=== PATIENT | female | born 1945 | race Caucasian/White ===

== ENCOUNTER → 2016-09-12 | Outpatient (CLI) | payer MEDICARE, BC ==
--- NOTE | 2016-09-14 12:34 | MM ---
Reason for exam: screening (asymptomatic). Last mammogram was performed 1 year ago. History: Patient is postmenopausal, has history of ovarian cancer at age 64, and is nulliparous. Family history of breast cancer in maternal cousin at age 40 and breast cancer in maternal aunt. Physical Findings: A clinical breast exam by your physician is recommended on an annual basis and results should be correlated with mammographic findings. MG Screening Mammo w CAD Bilateral CC and MLO view(s) were taken. Prior study comparison: September 08, 2015, bilateral MG screening mammo w CAD. August 26, 2014, bilateral MG screening mammo w CAD. August 22, 2013, bilateral digital screening mammo w/CAD. The breast tissue is heterogeneously dense. This may lower the sensitivity of mammography. There is chronic nodularity in the left breast. No significant changes when compared with prior studies. ASSESSMENT: Negative, BI-RAD 1 RECOMMENDATION: Routine screening mammogram of both breasts in 1 year.
== END | disposition home or self-care (01) ==
LOC: RADMAMWWP 11:20
PROVIDERS: ATTEND Internal Medicine
DX: Z12.31 Encounter for screening mammogram for malignant neoplasm of breast (principal)

== ENCOUNTER → 2017-09-28 | Outpatient (CLI) | payer MEDICARE, BC ==
--- NOTE | 2017-10-01 12:53 | MM ---
Reason for exam: screening (asymptomatic). Last mammogram was performed 1 year ago. History: Patient is postmenopausal, has history of ovarian cancer at age 64, and is nulliparous. Family history of breast cancer in maternal cousin at age 40 and breast cancer in maternal aunt. Physical Findings: A clinical breast exam by your physician is recommended on an annual basis and results should be correlated with mammographic findings. MG Screening Mammo w CAD Bilateral CC and MLO view(s) were taken. XCCL view(s) were taken of the right breast. Prior study comparison: September 14, 2016, bilateral MG screening mammo w CAD. September 08, 2015, bilateral MG screening mammo w CAD. There are scattered fibroglandular densities. No significant changes when compared with prior studies. ASSESSMENT: Benign, BI-RAD 2 RECOMMENDATION: Routine screening mammogram of both breasts in 1 year.
== END | disposition home or self-care (01) ==
LOC: RADMAMWWP 13:16
PROVIDERS: ATTEND Internal Medicine
DX: Z12.31 Encounter for screening mammogram for malignant neoplasm of breast (principal)
CPT/HCPCS: 77067

== ENCOUNTER 2018-12-03 13:47 | Observation (INO) | payer MEDICARE, BC ==
[2018-12-03] MEDS ORDERED: SODIUM CHLORIDE 0.9% 1,000 ML IV STA (13:53)
--- NOTE | 2018-12-03 14:29 | ED ---
Dizziness HPI - General Chief Complaint: Dizziness Stated Complaint: dizziness Time Seen by Provider: 12/03/18 13:52 Source: patient, EMS, RN notes reviewed, old records reviewed Mode of arrival: EMS Limitations: no limitations - History of Present Illness Initial Comments: This is a 72-year-old female the ER for evaluation of dizziness today. Patient episode of dizziness and weakness with getting up this morning. Patient secondary to his dizziness and weakness did fall to ground having severe right ankle pain. Denies hitting head denies other trauma. No headache no chest pain no nausea no vomiting abdominal pain diarrhea recent medication change MD Complaint: dizziness (Prior to a fall) -: hour(s) Timing: gradual onset Description: lightheadedness, difficulty walking (Now unable to walk secondary to pain) History of Same: No History of Trauma: No Severity: moderate Improves With: nothing Worsens With: movement Associated Symptoms: weakness - Related Data Home Medications Medication Instructions Recorded Confirmed Latanoprost/Pf [Latanoprost 0.005% 1 drop LEFT EYE BID 12/03/18 12/03/18 Eye Drop] Levothyroxine Sodium [Synthroid] 75 mcg PO DAILY 12/03/18 12/03/18 Timolol 0.5% Ophth Gel Forming 1 drops LEFT EYE BID 12/03/18 12/03/18 [Timoptic-Xe] Allergies Allergy/AdvReac Type Severity Reaction Status Date / Time codeine Allergy Itching Verified 12/03/18 14:19 Review of Systems ROS Statement: Those systems with pertinent positive or pertinent negative responses have been documented in the HPI. ROS Other: All systems not noted in ROS Statement are negative. Past Medical History Additional Past Medical History / Comment(s): hypoglycemia, macular degneration, glacoma, cataract History of Any Multi-Drug Resistant Organisms: None Reported Past Surgical History: Appendectomy, Cholecystectomy, Hysterectomy Past Psychological History: No Psychological Hx Reported Smoking Status: Never smoker Past Alcohol Use History: None Reported Past Drug Use History: None Reported General Exam - General Exam Comments Initial Comments: Patient's non-ambulatory secondary to pain Limitations: no limitations General appearance: alert, in no apparent distress Head exam: Present: atraumatic, normocephalic, normal inspection Eye exam: Present: normal appearance, PERRL, EOMI. Absent: scleral icterus, conjunctival injection, periorbital swelling ENT exam: Present: normal exam, mucous membranes moist Neck exam: Present: normal inspection. Absent: tenderness, meningismus, lymphadenopathy Respiratory exam: Present: normal lung sounds bilaterally. Absent: respiratory distress, wheezes, rales, rhonchi, stridor Cardiovascular Exam: Present: regular rate, normal rhythm, normal heart sounds. Absent: systolic murmur, diastolic murmur, rubs, gallop, clicks GI/Abdominal exam: Present: soft, normal bowel sounds. Absent: distended, tenderness, guarding, rebound, rigid Extremities exam: Present: normal inspection, full ROM, normal capillary refill. Absent: tenderness, pedal edema, joint swelling, calf tenderness Back exam: Present: normal inspection Neurological exam: Present: alert, oriented X3, CN II-XII intact Psychiatric exam: Present: normal affect, normal mood Skin exam: Present: warm, dry, intact, normal color. Absent: rash Course Vital Signs 12/03/18 12/03/18 14:04 18:00 Temperature 98.3 F Pulse Rate 74 89 Respiratory 18 18 Rate Blood Pressure 123/71 126/70 O2 Sat by Pulse 98 97 Oximetry - Reevaluation(s) Reevaluation #1: 12/03/18 19:07 Medical records reviewed Reevaluation #2: 12/03/18 19:07 Patient is unable to ambulate here in the emergency department EKG Findings - EKG Comments: EKG Findings:: EKG shows sinus rhythm rate of 73, MI 146, QRS 70, QTc 438 Medical Decision Making - Medical Decision Making 72 female the ER with dizziness dizzy episode that led to fall with right ankle pain. Patient unable to walk secondary to pain. Will admit for pain control, she does have CT of lower extremity which is negative here in the emergency room. Patient also very weak and dizzy upon ambulation - Lab Data Result diagrams: 12/03/18 14:22 12/03/18 14:22 Lab Results 12/03/18 12/03/18 12/03/18 Range/Units 14:22 14:22 14:22 WBC 6.7 (3.8-10.6) k/uL RBC 4.36 (3.80-5.40) m/uL Hgb 9.2 L (11.4-16.0) gm/dL Hct 31.8 L (34.0-46.0) % MCV 72.9 L (80.0-100.0) fL MCH 21.0 L (25.0-35.0) pg MCHC 28.8 L (31.0-37.0) g/dL RDW 15.4 (11.5-15.5) % Plt Count 341 (150-450) k/uL Neutrophils % 75 % Lymphocytes % 17 % Monocytes % 4 % Eosinophils % 3 % Basophils % 0 % Neutrophils # 5.0 (1.3-7.7) k/uL Lymphocytes # 1.1 (1.0-4.8) k/uL Monocytes # 0.3 (0-1.0) k/uL Eosinophils # 0.2 (0-0.7) k/uL Basophils # 0.0 (0-0.2) k/uL Hypochromasia Marked Microcytosis Slight PT (9.0-12.0) sec INR (<1.2) APTT (22.0-30.0) sec Sodium 139 (137-145) mmol/L Potassium 3.5 (3.5-5.1) mmol/L Chloride 104 (98-107) mmol/L Carbon Dioxide 30 (22-30) mmol/L Anion Gap 5 mmol/L BUN 14 (7-17) mg/dL Creatinine 0.61 (0.52-1.04) mg/dL Est GFR (CKD-EPI)AfAm >90 (>60 ml/min/1.73 sqM) Est GFR (CKD-EPI)NonAf >90 (>60 ml/min/1.73 sqM) Glucose 143 H (74-99) mg/dL Plasma Lactic Acid Julio Cesar 1.5 (0.7-2.0) mmol/L Calcium 9.0 (8.4-10.2) mg/dL Phosphorus 3.4 (2.5-4.5) mg/dL Magnesium 2.1 (1.6-2.3) mg/dL Total Bilirubin 0.4 (0.2-1.3) mg/dL AST 12 L (14-36) U/L ALT 8 L (9-52) U/L Alkaline Phosphatase 79 (38-126) U/L Creatine Kinase 27 L (30-135) U/L Troponin I (0.000-0.034) ng/mL Total Protein 6.4 (6.3-8.2) g/dL Albumin 3.4 L (3.5-5.0) g/dL 12/03/18 12/03/18 Range/Units 14:22 14:22 WBC (3.8-10.6) k/uL RBC (3.80-5.40) m/uL Hgb (11.4-16.0) gm/dL Hct (34.0-46.0) % MCV (80.0-100.0) fL MCH (25.0-35.0) pg MCHC (31.0-37.0) g/dL RDW (11.5-15.5) % Plt Count (150-450) k/uL Neutrophils % % Lymphocytes % % Monocytes % % Eosinophils % % Basophils % % Neutrophils # (1.3-7.7) k/uL Lymphocytes # (1.0-4.8) k/uL Monocytes # (0-1.0) k/uL Eosinophils # (0-0.7) k/uL Basophils # (0-0.2) k/uL Hypochromasia Microcytosis PT 10.4 (9.0-12.0) sec INR 1.0 (<1.2) APTT 22.3 (22.0-30.0) sec Sodium (137-145) mmol/L Potassium (3.5-5.1) mmol/L Chloride (98-107) mmol/L Carbon Dioxide (22-30) mmol/L Anion Gap mmol/L BUN (7-17) mg/dL Creatinine (0.52-1.04) mg/dL Est GFR (CKD-EPI)AfAm (>60 ml/min/1.73 sqM) Est GFR (CKD-EPI)NonAf (>60 ml/min/1.73 sqM) Glucose (74-99) mg/dL Plasma Lactic Acid Julio Cesar (0.7-2.0) mmol/L Calcium (8.4-10.2) mg/dL Phosphorus (2.5-4.5) mg/dL Magnesium (1.6-2.3) mg/dL Total Bilirubin (0.2-1.3) mg/dL AST (14-36) U/L ALT (9-52) U/L Alkaline Phosphatase (38-126) U/L Creatine Kinase (30-135) U/L Troponin I <0.012 (0.000-0.034) ng/mL Total Protein (6.3-8.2) g/dL Albumin (3.5-5.0) g/dL - Radiology Data Radiology results: report reviewed (CT brain CT right lower extremity ankle and foot negative for traumatic injury x-ray right ankle negative for traumatic injury chest and pelvis x-ray negative), image reviewed Disposition Clinical Impression: Dizziness, Fall, Right ankle pain, Inability to ambulate due to ankle or foot Disposition: ADMITTED IP TO THIS HOSP Condition: Good Is patient prescribed a controlled substance at d/c from ED?: No
[2018-12-03 14:34] LABS: Basophils % (A) 0 %; Eosinophils # (A) 0.2 k/uL (0-0.7); Eosinophils % (A) 3 %; HCT 31.8 % (34.0-46.0); HGB 9.2 gm/dL (11.4-16.0); Hypochromasia Marked; Lymphocytes # (A) 1.1 k/uL (1.0-4.8); Lymphocytes % (A) 17 %; MCHC 28.8 g/dL (31.0-37.0); MCV 72.9 fL (80.0-100.0); Mean Platelet Volume 6.7; Microcytosis Slight; Monocytes # (A) 0.3 k/uL (0-1.0); Monocytes % (A) 4 %; Neutrophils % (A) 75 %; Platelet Count 341 k/uL (150-450); RBC 4.36 m/uL (3.80-5.40); RDW 15.4 % (11.5-15.5); WBC 6.7 k/uL (3.8-10.6)
[2018-12-03 14:44] LABS: ALT 8 U/L (9-52); AST 12 U/L (14-36); Albumin 3.4 g/dL (3.5-5.0); Alkaline Phosphatase 79 U/L (38-126); Anion Gap 5 mmol/L; Blood Urea Nitrogen 14 mg/dL (7-17); Carbon Dioxide 30 mmol/L (22-30); Chloride 104 mmol/L (98-107); Creatine Kinase 27 U/L (30-135); Glucose 143 mg/dL (74-99); Magnesium 2.1 mg/dL (1.6-2.3); Phosphorus 3.4 mg/dL (2.5-4.5); Potassium 3.5 mmol/L (3.5-5.1); Sodium 139 mmol/L (137-145); Total Bilirubin 0.4 mg/dL (0.2-1.3); Total Protein 6.4 g/dL (6.3-8.2)
--- NOTE | 2018-12-03 14:52 | CT ---
EXAMINATION TYPE: CT brain wo con DATE OF EXAM: 12/03/2018 COMPARISON: None HISTORY: Weakness and fall today. Patient denies head injury CT DLP: 1099.4 mGycm Automated exposure control for dose reduction was used. FINDINGS: Mild irregularity involving the soft tissues the anterior frontal epidermis correlate clinically. The re multiple subcutaneous nodules noted bilaterally. There is mild to moderate generalized degenerative change. Low-attenuation the white matter is nonspe cific but most typical remote microvascular ischemia. Calvarium intact. No definite acute hemorrhage. IMPRESSION: 1. Degenerative and nonspecific white matter changes most typical remote ischemia. If there is concer n for acute ischemia correlate with MRI as clinically warranted. 2. Numerous epidermal and subcutaneous soft tissue nodules which are nonspecific could represent seba ceous cysts. Other skin or subcutaneous neoplasms in the differential including neurofibroma. Correla te clinically.
[2018-12-03 14:58] LABS: Partial Thromboplastin Time 22.3 sec (22.0-30.0); Prothrombin Time 10.4 sec (9.0-12.0)
--- NOTE | 2018-12-03 15:22 | XR ---
EXAMINATION TYPE: XR chest 2V DATE OF EXAM: 12/03/2018 COMPARISON: 12/03/2018 HISTORY: Weakness TECHNIQUE: Frontal and lateral views of the chest are obtained. FINDINGS: There is no focal air space opacity, pleural effusion, or pneumothorax seen. The cardiac silhouette size is within normal limits. The osseous structures are intact. There is generalized os seous demineralization overall mild. Cholecystectomy clips are seen in the right upper quadrant. Mild multilevel degenerative changes of the thoracic spine are noted. IMPRESSION: No acute cardiopulmonary process.
--- NOTE | 2018-12-03 15:36 | XR ---
EXAMINATION TYPE: XR ankle complete RT DATE OF EXAM: 12/03/2018 CLINICAL HISTORY: Right ankle pain after fall TECHNIQUE: Frontal, lateral and oblique images of the great ankle are obtained. COMPARISON: None. FINDINGS: There is no acute fracture/dislocation evident in the right ankle. Mild osseous deminerali zation is seen. The ankle mortise appears within normal limits. Small plantar and Achilles heel spurs are present. The overlying soft tissue appears unremarkable. IMPRESSION: There is no acute fracture or dislocation in the right ankle.
--- NOTE | 2018-12-03 17:06 | CT ---
EXAMINATION TYPE: CT lower extremity RT wo con DATE OF EXAM: 12/03/2018 COMPARISON: None HISTORY: Fall today. CT DLP: 238 mGycm Automated exposure control for dose reduction was used. FINDINGS: Multiple axial sections were obtained from the distal tibia to the bottom of the foot with no contras t. There are plantar and Achilles calcaneal spurs. Subtalar joint is anatomic. Ankle mortise is anatomic . There is some narrowing of the ankle joint space. There is some spur formation and calcification at the lateral aspect of the distal tibia consistent with degenerative disease. I see no fracture. Ther e is some narrowing of the intertarsal joint spaces. Metatarsals appear intact. The bones appear inta ct. IMPRESSION: THERE ARE SOME DEGENERATIVE CHANGES IN THE FOOT AND ANKLE. NO FRACTURE SEEN.
[2018-12-03] MEDS ORDERED: SODIUM CHLORIDE 0.9% 1,000 ML IV ONE (17:37)
[2018-12-03] MEDS ORDERED: MORPHINE SULFATE 4 MG/ML SYRINGE IVP PRN (17:38)
[2018-12-03] MEDS ORDERED: MORPHINE SULFATE 4 MG/ML SYRINGE IVP STA (17:38)
[2018-12-03] MEDS: ACETAMINOPHEN TAB 325 MG TAB PO PRN ×2 (18:34→23:42)
[2018-12-04 00:25] VITALS: BMI 28.7
[2018-12-04 01:29] VITALS: RESP 16; TEMP 98.7
[2018-12-04] MEDS: ACETAMINOPHEN TAB 325 MG TAB PO PRN (06:10)
[2018-12-04] MEDS ORDERED: LEVOTHYROXINE 75 MCG TAB PO SCH (06:30)
[2018-12-04 08:52] VITALS: PULSE 91
[2018-12-04] MEDS ORDERED: LATANOPROST 0.005% OPHTH DROPS 2.5 ML BTL LEFT EYE SCH (09:00)
[2018-12-04] MEDS ORDERED: TIMOLOL 0.5% OPHTH DROPS 5 ML BTL LEFT EYE SCH (09:00)
[2018-12-04 11:49] VITALS: BP 123/69
--- NOTE | 2018-12-04 23:16 | HP ---
HISTORY AND PHYSICAL This is a combination history and physical and discharge summary. CHIEF COMPLAINTS: Dizziness as well as right ankle pain. HISTORY OF PRESENT ILLNESS: This 72-year-old woman with a past medical history of multiple medical problems, including history of hypothyroidism, hypoglycemia, appendectomy, cholecystectomy, being followed by Dr. Quiroz in the outpatient setting, apparently had a fall following an episode of dizziness. The patient was getting up in the morning and she fell down, which was the witnessed by the patient's sister, who lives with the patient. The patient complained of right ankle pain and the patient came to [facility] and was admitted for further evaluation and treatment. Further evaluation of the ankle showed no evidence of any fractures. Sprain was suspected. The patient is keen on going home at this time. Hemoglobin was found to be 9.2. Otherwise, there is no history of any history of chest pain, palpitation, headache, loss of consciousness, seizures. No history of diarrhea, fever, rigor or chills at this time. PAST MEDICAL HISTORY: 1. History of hypothyroidism. 2. Appendectomy. 3. Cholecystectomy. 4. Hypoglycemia. HOME MEDICATIONS: 1. Timolol 0.5%. 2. Synthroid 75 mcg p.o. daily. 3. Latanoprost 1 drop b.i.d. 4. Tylenol 650 q.6 p.r.n. ALLERGIES: CODEINE. FAMILY HISTORY: History of pulmonary embolism, macular degeneration, cataract, thyroid. SOCIAL HISTORY: No history of smoking. No history of alcohol intake. REVIEW OF SYSTEMS: ENT: Diminished hearing. Diminished vision. CARDIOVASCULAR SYSTEM: No angina, palpitations. RESPIRATORY SYSTEM: As mentioned earlier. GI: No nausea, vomiting. : No dysuria or retention. NERVOUS SYSTEM: No numbness, weakness. ALLERGY/IMMUNOLOGY: No asthma, hayfever. MUSCULOSKELETAL: As mentioned earlier. HEMATOLOGY/ONCOLOGY: No history of anemia. ENDOCRINE: Hypothyroidism. CONSTITUTIONAL: As mentioned earlier. DERMATOLOGY: Negative. RHEUMATOLOGY: Negative. PSYCHIATRY: As mentioned earlier. PHYSICAL EXAMINATION: Patient alert and oriented x3. Pulse 91, blood pressure 130/74, respiration 20, temperature 98.6, pulse ox 93% on room air. HEENT: Conjunctivae normal. Oral mucosa moist. NECK: No jugular venous distention. No carotid bruit. No lymph node enlargement. CARDIOVASCULAR SYSTEM: S1, S2 muffled. RESPIRATORY SYSTEM: Breath sounds diminished at the bases. Scattered rhonchi and crackles. ABDOMEN: Soft, non-tender. LEGS: No edema. No swelling. Right leg has minimal tenderness in the ankle area. NERVOUS SYSTEM: No focal deficit. LABS: WBC 6.7, hemoglobin 9.2. INR is 1. ASSESSMENT: 1. Dizziness and syncope for evaluation, possibly vasovagal. 2. Hypothyroidism. 3. Hypoglycemia. 4. Macular degeneration. 5. Glaucoma. 6. Cataracts. 7. Appendectomy: 8. Cholecystectomy. RECOMMENDATIONS AND DISCUSSION: In this 72-year-old woman admitted with multiple complex medical issues, at this time patient appears to be stable. The patient and family would like to return home at this time. I would recommend the patient to follow up closely in the outpatient setting with Dr. Quiroz. Otherwise, resume the home medications. Orthostatic vitals are negative. The right ankle pain has improved significantly at this time. There is no evidence of fracture currently. DISCHARGE ADVICE AND MEDICATIONS: 1. Follow up with Cardiology and Orthopedic Surgery. 2. Latanoprost 1 b.i.d. 3. Synthroid 75 mcg p.o. daily. 4. Timolol b.i.d. 5. Tylenol p.r.n. MMODL / IJN: [id number] /
== END 2018-12-04 14:16 | disposition home or self-care (01) ==
LOC: EC 13:47 → 4SSUR 17:38
PROVIDERS: ADMIT Hospitalist; ATTEND Hospitalist
DX: R42 Dizziness and giddiness (principal); R55 Syncope and collapse; M25.571 Pain in right ankle and joints of right foot; E03.9 Hypothyroidism, unspecified; H26.9 Unspecified cataract; H40.9 Unspecified glaucoma; H35.30 Unspecified macular degeneration; E16.2 Hypoglycemia, unspecified; W19.XXXA Unspecified fall, initial encounter; Z79.890 Hormone replacement therapy; Z90.710 Acquired absence of both cervix and uterus; Z90.49 Acquired absence of other specified parts of digestive tract; Z88.5 Allergy status to narcotic agent
CPT/HCPCS: 96361 ×3; 96360; 99285; 36415; 93005; 80053; 82550; 83605; 83735; 84100; 84484 ×2; 85025; 85610; 85730; 73610; 71046; 73700; 70450; G0378 ×2

== ENCOUNTER → 2018-12-18 | Outpatient (CLI) | payer MEDICARE, BC ==
[2018-12-18 08:57] LABS: African American GFR (CKD) >90 (>60 ml/min/1.73 sqM); Blood Urea Nitrogen 17 mg/dL (7-17)
--- NOTE | 2018-12-18 10:01 | CT ---
EXAMINATION TYPE: CT chest w con DATE OF EXAM: 12/18/2018 COMPARISON: NONE HISTORY: Shortness of breath CT DLP: 382.7 mGycm. Automated Exposure Control for Dose Reduction was Utilized. TECHNIQUE: CT scan of the thorax is performed following with IV Contrast, patient injected with 100 mL of Isovue 300. FINDINGS: LUNGS: There is right basilar linear scarring and/or atelectasis posteriorly. No suspicious focal con solidation or infiltrate. No pleural effusion or pneumothorax is evident. Tracheobronchial tree is pa tent. MEDIASTINUM: There are no greater than 1 cm hilar or mediastinal lymph nodes. No cardiomegaly or pe ricardial effusion is seen. There is mild to moderate right atrial and right ventricular dilatation. Main pulmonary artery measures 3.1 cm at bifurcation axial image 27. CT finding suggestive for under lying pulmonary artery hypertension. Adjacent ascending aorta measures up to 3.4 cm in diameter. OTHER: Cholecystectomy clips are seen. There is simple appearing 3.3 cm exophytic thin-walled cyst an teriorly from the left kidney. Smaller simple appearing cyst left kidney axial image 62 is noted Ther e is dextroconvex scoliosis centered in the lower thoracic spine. Mild generalized fat replaced atrop hy of pancreas. Moderate to severe multilevel spurring in the upper to midthoracic spine. IMPRESSION: No suspicious acute pulmonary process.
--- NOTE | 2018-12-19 10:07 | MM ---
Reason for exam: screening (asymptomatic). Last mammogram was performed 1 year and 3 months ago. History: Patient is postmenopausal, has history of ovarian cancer at age 64, and is nulliparous. Family history of breast cancer in maternal cousin at age 40 and breast cancer in maternal aunt. Physical Findings: A clinical breast exam by your physician is recommended on an annual basis and results should be correlated with mammographic findings. MG Screening Mammo w CAD Bilateral CC and MLO view(s) were taken. Prior study comparison: September 28, 2017, bilateral MG screening mammo w CAD. September 14, 2016, bilateral MG screening mammo w CAD. The breast tissue is heterogeneously dense. This may lower the sensitivity of mammography. No suspicious abnormality on the left. Right upper outer quadrant middle depth focal asymmetry. These results were verbally communicated with the patient and result sheet given to the patient on 12/18/18. ASSESSMENT: Incomplete: need additional imaging evaluation, BI-RAD 0 RECOMMENDATION: Special view mammogram of the right breast. If lesion persists on supplemental views, image directed ultrasound is recommended. [facility] will attempt to contact patient to return for supplemental views and ultrasound if indicated.
== END | disposition home or self-care (01) ==
LOC: RADCTMAIN 08:16
PROVIDERS: ATTEND Internal Medicine
DX: Z12.31 Encounter for screening mammogram for malignant neoplasm of breast (principal); R06.02 Shortness of breath; Z88.1 Allergy status to other antibiotic agents; Z88.5 Allergy status to narcotic agent
CPT/HCPCS: 82565; 84520; 77067; 71260; 36415; Q9967

== ENCOUNTER → 2018-12-27 | Outpatient (CLI) | payer MEDICARE, BC ==
--- NOTE | 2018-12-30 08:37 | MM ---
Reason for exam: additional evaluation requested from abnormal screening. Last mammogram was performed less than 1 month ago. History: Patient is postmenopausal, has history of ovarian cancer at age 64, and is nulliparous. Family history of breast cancer in maternal cousin at age 40 and breast cancer in maternal aunt. Physical Findings: Nurse did not find any significant physical abnormalities on exam. MG 3D Work Up W/Cad RT Spot compression CC, spot compression MLO, and ML view(s) were taken of the right breast. Prior study comparison: December 18, 2018, bilateral MG screening mammo w CAD. September 28, 2017, bilateral MG screening mammo w CAD. The breast tissue is heterogeneously dense. This may lower the sensitivity of mammography. Distortion upper outer quadrant on the right persists 5 cm from nipple. most notably on spot CC -. These results were verbally communicated with the patient and result sheet given to the patient on 12/27/18. ASSESSMENT: Incomplete: need additional imaging evaluation, BI-RAD 0 RECOMMENDATION: Ultrasound of the right breast. (upper outer quadrant)
--- NOTE | 2018-12-30 08:39 | USB ---
Reason for exam: additional evaluation requested from abnormal screening. History: Patient is postmenopausal, has history of ovarian cancer at age 64, and is nulliparous. Family history of breast cancer in maternal cousin at age 40 and breast cancer in maternal aunt. US Breast Workup Limited RT Right limited breast ultrasound including focal area of concern, retroareolar and axilla demonstrates no cystic or solid lesion seen. No sonographic correlate. 3D biopsy recommended. These results were verbally communicated with the patient and result sheet given to the patient on 12/27/18. ASSESSMENT: Suspicious, BI-RAD 4 RECOMMENDATION: Surgical consultation and stereotactic core biopsy of the right breast. (3D needed) Called Dr. Quiroz with mammographic findings and has scheduled an appointment for the patient for 01/06/19 at 9:[address] Fang. PRELIMINARY REPORT CALLED AND FAXED TO DR. FANG ON 12/30/18.
== END | disposition home or self-care (01) ==
LOC: RADMAMWWP 14:12
PROVIDERS: ATTEND Internal Medicine
DX: R92.8 Other abnormal and inconclusive findings on diagnostic imaging of breast (principal)
CPT/HCPCS: 77065; 76642; G0279; 77061

== ENCOUNTER → 2019-07-10 | Outpatient (CLI) | payer MEDICARE, BC ==
--- NOTE | 2019-07-10 15:36 | CT ---
EXAMINATION TYPE: CT pelvis wo con DATE OF EXAM: 07/10/2019 COMPARISON: None HISTORY: 73-year-old female with left-sided groin mass TECHNIQUE: Contiguous axial scanning of the pelvis without IV contrast. Coronal and sagittal reconstr uctions performed. CT DLP: 406.90 mGycm Automated exposure control for dose reduction was used. FINDINGS: Scattered mild to moderate stool. There is some circumferential wall thickening along the midsigmoid with adjacent stranding and a 7 mm borderline-sized adjacent mesenteric lymph node. Possible abnormal extension of thickened soft tissue and air from this region contiguous with the ant erior wall of the bladder. Possible involvement along the posterior surface of the abdominal wall mus culature. Heterogeneous mass measuring 6.1 x 3.9 cm within the lower left inguinal region lateral canal lymph n ode measures 1.2 cm which is mildly enlarged. Uterus surgically absent. What appears to be the left ovary is visualized. Right ovary not clearly de lineated. Bones: Mild degenerative changes of the hips. Facet arthropathy lower lumbar spine. IMPRESSION: 1. SIGMOID DIVERTICULOSIS WITH INFLAMMATION SURROUNDING THE MIDSIGMOID. CORRELATE FOR ACUTE DIVERTICU LITIS. 2. POSSIBLE ABNORMAL EXTENSION OF THICKENED SOFT TISSUE AND AIR FROM THIS REGION TO THE ANTERIOR WALL OF THE BLADDER AND ALSO ALONG THE POSTERIOR SURFACE OF THE ABDOMINAL WALL MUSCULATURE. NEOPLASM AND POSTINFLAMMATORY SEQUELA WITH FISTULA FORMATION ARE THE DIFFERENTIAL. 3. ABNORMAL HETEROGENEOUS MASS WITHIN THE LOWER LEFT GLUTEAL REGION MEASURING 6.1 X 3.9 CM. METASTATI C LYMPHADENOPATHY REMAINS TO BE EXCLUDED. APPROPRIATE FURTHER WORKUP AND MANAGEMENT RECOMMENDED FOR A LL OF THESE FINDINGS. A Rufus level critical message alert has been initiated for Rell Cristina DO via the [employer] Critical Results System on 07/10/2019 3:33 PM. This message alert has been sent to Rell Cristina DO via the preferences provided by the clinician for the receipt of Radiology Critical Findings. Mess age ID [id number].
== END | disposition home or self-care (01) ==
LOC: RADCTMAIN 14:26
PROVIDERS: ATTEND Obstetrics & Gynecology
DX: K57.30 Diverticulosis of large intestine without perforation or abscess without bleeding (principal); R19.09 Other intra-abdominal and pelvic swelling, mass and lump
CPT/HCPCS: 72192

== ENCOUNTER 2019-07-30 12:15 | Day surgery (SDC) | payer MEDICARE, BC ==
[2019-07-30 12:46] VITALS: TEMP 97.8
[2019-07-30 14:05] VITALS: BP 116/66; PULSE 78; RESP 16
--- NOTE | 2019-07-30 15:44 | US ---
EXAMINATION TYPE: US biopsy soft tissue/muscle DATE OF EXAM: 07/30/2019 HISTORY: Left inguinal mass. Procedure: Maximal barrier technique was utilized. The skin overlying a suitable path to the patient 's mass in the left inguinal region was localized with ultrasound and the overlying skin prepped and draped. Ultrasound was utilized with sterile technique. Lidocaine was used for local anesthesia. A skin danika was made with a scalpel. An 18-gauge needle was advanced under direct ultrasound guidance and core specimen obtained of the mass. Specimen submitted in formalin to Pathology. Following the procedure, hemostasis achieved and the patient is discharged in stable condition without complicatio n. IMPRESSION:STATUS POST ULTRASOUND GUIDED CORE BIOPSY OF left inguinal MASS, PATHOLOGY IS PENDING. TH IS PROCEDURE IS PERFORMED BY THE UNDERSIGNED.
== END 2019-07-30 13:45 | disposition home or self-care (01) ==
LOC: RADPROMAIN 12:15
PROVIDERS: ATTEND Surgery
DX: R19.04 Left lower quadrant abdominal swelling, mass and lump (principal); R59.1 Generalized enlarged lymph nodes
CPT/HCPCS: 20206; 76942; 88305; 88341; 88342

== ENCOUNTER 2019-08-13 08:29 | Day surgery (SDC) | payer MEDICARE, BC ==
[2019-08-08 15:06] VITALS: BMI 24.6
[~2019-08-13 08:29] MED LIST: DEXAMETHASONE SOD PHOSPHATE 10 MG/ML 1 ML VIAL IV ONE; HEPARIN SODIUM,PORCINE 5,000 UNIT/ML 1 ML VIAL SQ ONE; HYDROmorphone 0.5 MG/0.5 ML SYRINGE IVP PRN; LACTATED RINGERS 1,000 ML IV SCH; LIDOCAINE 1% 20 ML VIAL (10MG/ML) FOR IV START INTRADERMA PRN; ONDANSETRON 4 MG/2 ML VIAL IVP ONE
--- NOTE | 2019-08-13 09:15 | P.GSHP ---
History of Present Illness H&P Date: 08/13/19 Chief Complaint: Left Groin mass This a 73-year-old female who presents today for open biopsy of a left groin mass. Patient has had this previously biopsied. The pathologist is requesting more tissue for diagnosis. Patient's had a mass present for approximately 7 years. Past Medical History Past Medical History: Eye Disorder, Liver Disease, Skin Disorder, Thyroid Disorder Additional Past Medical History / Comment(s): hypoglycemia, macular degeneration, glaucoma, cataracts,. Legally BLIND both eyes, Hep B 40 years ago. 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, recent soft tissue core biopsy History of Any Multi-Drug Resistant Organisms: None Reported Past Surgical History: Appendectomy, Cholecystectomy, Hysterectomy Additional Past Surgical History / Comment(s): partial hysterectomy, skin growths "burned off" Past Anesthesia/Blood Transfusion Reactions: No Reported Reaction Smoking Status: Never smoker - Past Family History Mother Additional Family Medical History / Comment(s): macualr degeneration, cataracts, thyroid Father Family Medical History: Pulmonary Embolus Medications and Allergies Home Medications Medication Instructions Recorded Confirmed Type Latanoprost/Pf [Latanoprost 0.005% 1 drop LEFT EYE BID 12/03/18 08/13/19 History Eye Drop] Levothyroxine Sodium [Synthroid] 75 mcg PO DAILY 12/03/18 08/13/19 History Timolol 0.5% Ophth Gel Forming 1 drops LEFT EYE BID 12/03/18 08/13/19 History [Timoptic-Xe 0.5% Gel Form] Ferrous Sulfate [Feosol] 325 mg PO DAILY 07/25/19 08/13/19 History Allergies Allergy/AdvReac Type Severity Reaction Status Date / Time codeine Allergy Itching Verified 08/13/19 08:56 Surgical - Exam Vital Signs Temp Pulse Resp BP Pulse Ox 98.4 F 88 16 128/68 98 08/13/19 08:46 08/13/19 08:46 08/13/19 08:46 08/13/19 08:46 08/13/19 08:46 - General well developed, well nourished, no distress - Eyes PERRL - ENT normal pinna - Neck no masses - Respiratory normal expansion - Cardiovascular Rhythm: regular - Abdomen Abdomen: soft, non tender - Musculoskeletal 4 x 7 x 5 cm left groin mass Assessment and Plan Assessment: Left groin mass. We'll perform open biopsy.
[2019-08-13 09:20] LABS: Glucose,Whole Blood 110 mg/dL (75-99)
[2019-08-13] MEDS ORDERED: fentaNYL (PF) 50 MCG/ML 2 ML AMP ONE (09:48)
[2019-08-13] MEDS ORDERED: MIDAZOLAM 2 MG/2 ML VIAL ONE (09:48)
[2019-08-13] MEDS ORDERED: PROPOFOL 10 MG/ML 20 ML VIAL IV ONE (09:48)
[2019-08-13] MEDS ORDERED: BUPIVACAINE (PF) 0.25% 30 ML VIAL SQ ONE ×3 (10:07→10:10)
[2019-08-13 10:41] VITALS: TEMP 97.6
[2019-08-13 10:47] VITALS: RESP 16
--- NOTE | 2019-08-13 10:56 | P.OP ---
Date of Procedure: 08/13/19 Preoperative Diagnosis: Left groin mass Postoperative Diagnosis: Left groin mass Procedure(s) Performed: Excision of left groin mass Anesthesia: ASHLEE Surgeon: Winston Fang Pathology: other (Left groin mass) Condition: stable Disposition: PACU Description of Procedure: The patient's placed on the operative table in supine position. She received general anesthesia. Repeat sterile fashion. A skin incision was made over the left groin and then using blunt and sharp dissection with cautery the mass was excised. The appeared to be a tissue plane between the mass and some taste tissues. The mass measured approximately 12 x 5 x 5 cm. The Bovie was used for hemostasis. A DARSHANA drain is placed in the operative field and brought through separate stab incision. The deep layers closed with 2-0 Vicryl. Skin was closed interrupted 3-0 Monocryl suture. Dermabond was applied. Patient tolerated the procedure well she will was sent to recovery room in stable condition.
[2019-08-13] MEDS ORDERED: LACTATED RINGERS 1,000 ML IV ONE (11:13)
[2019-08-13 11:43] VITALS: BP 111/62; PULSE 66
[2019-08-13] MEDS ORDERED: HYDROcodone/APAP 5-325MG 1 EACH TAB PO ONE (11:47)
== END 2019-08-13 13:06 | disposition home or self-care (01) ==
LOC: OR 08:29
PROVIDERS: ATTEND Surgery
DX: D23.5 Other benign neoplasm of skin of trunk (principal); H54.8 Legal blindness, as defined in USA; E07.9 Disorder of thyroid, unspecified
CPT/HCPCS: 11406; 12034; 88305; J2250; J1644; J1100; J0690; J2405; J3010; J2704; J1170

== ENCOUNTER → 2019-08-26 | Outpatient (CLI) | payer MEDICARE, BC ==
--- NOTE | 2019-08-26 14:11 | MM ---
Reason for exam: follow-up at short interval from prior study. Last mammogram was performed 8 months ago. History: Patient is postmenopausal, has history of ovarian cancer at age 64, and is nulliparous. Family history of breast cancer in maternal cousin at age 40 and breast cancer in maternal aunt. Benign excisional biopsy of the right breast, January 2019. Physical Findings: Nurse did not find any significant physical abnormalities on exam. MG 3D Diag Mammo W/Cad RT CC and MLO view(s) were taken of the right breast. Prior study comparison: December 27, 2018, right breast MG 3d work up w/cad RT. December 18, 2018, bilateral MG screening mammo w CAD. The breast tissue is heterogeneously dense. This may lower the sensitivity of mammography. Stable benign calcifications. Previous mammotome biopsy in the right breast. There is chronic nodularity bilaterally. These results were verbally communicated with the patient and result sheet given to the patient on 08/26/19. ASSESSMENT: Benign, BI-RAD 2 RECOMMENDATION: Return to routine screening mammogram schedule for both breasts. Back on schedule.
== END | disposition home or self-care (01) ==
LOC: RADMAMWWP 12:48
PROVIDERS: ATTEND Surgery
DX: R92.8 Other abnormal and inconclusive findings on diagnostic imaging of breast (principal)
CPT/HCPCS: 77065; G0279; 77061

== ENCOUNTER 2020-04-21 12:05 | Emergency (ER) | payer MEDICARE, BC ==
[2020-04-21] MEDS ORDERED: MECLIZINE 12.5 MG TAB PO STA (12:11)
[2020-04-21] MEDS ORDERED: ONDANSETRON 4 MG/2 ML VIAL IVP STA (12:11)
[2020-04-21] MEDS ORDERED: SODIUM CHLORIDE 0.9% 1,000 ML IV STA (12:11)
[2020-04-21 12:14] VITALS: RESP 16; TEMP 98
--- NOTE | 2020-04-21 12:14 | ED ---
Dizziness HPI - General Stated Complaint: Dizziness Time Seen by Provider: 04/21/20 12:06 Source: patient, EMS, RN notes reviewed Mode of arrival: EMS Limitations: no limitations - History of Present Illness Initial Comments: 74-year-old female presents emergency department via EMS chief complaint of dizziness. Patient states that she was sitting down felt like the room was sp inning. Patient states that she attempted to get up and felt worse with movement. Patient states that she had had a few bouts is the past in which she was hospitalized with no clear results. Patient states that she does not feel significantly nauseated no vomiting no focal weakness no blurred vision no headache. Patient states the dizziness is worse with movement. She felt that she was so dizzy she has not passed out. - Related Data Home Medications Medication Instructions Recorded Confirmed Latanoprost/Pf [Latanoprost 0.005% 1 drop LEFT EYE HS 12/03/18 04/21/20 Eye Drop] Levothyroxine Sodium [Synthroid] 75 mcg PO DAILY 12/03/18 04/21/20 Timolol 0.5% Ophth Gel Forming 1 drops LEFT EYE DAILY 12/03/18 04/21/20 [Timoptic-Xe 0.5% Gel Form] Ferrous Sulfate [Feosol] 325 mg PO DAILY 07/25/19 04/21/20 Previous Rx's Medication Instructions Recorded Meclizine [Antivert] 25 mg PO TID PRN #15 tab 04/21/20 Allergies Allergy/AdvReac Type Severity Reaction Status Date / Time codeine Allergy Itching Verified 04/21/20 12:42 Review of Systems ROS Statement: Those systems with pertinent positive or pertinent negative responses have been documented in the HPI. ROS Other: All systems not noted in ROS Statement are negative. Past Medical History Past Medical History: Eye Disorder, Liver Disease, Skin Disorder, Thyroid Disorder Additional Past Medical History / Comment(s): hypoglycemia, macular degeneration, glaucoma, cataracts,. Legally BLIND both eyes, Hep B 40 years ago. 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, recent soft tissue core biopsy History of Any Multi-Drug Resistant Organisms: None Reported Past Surgical History: Appendectomy, Cholecystectomy, Hysterectomy Additional Past Surgical History / Comment(s): partial hysterectomy, skin growths "burned off" Past Anesthesia/Blood Transfusion Reactions: No Reported Reaction Past Psychological History: No Psychological Hx Reported Additional Psychological History / Comment(s): lives with sister. pt required assistance due to legally blind Past Alcohol Use History: None Reported Past Drug Use History: None Reported - Past Family History Mother Additional Family Medical History / Comment(s): macualr degeneration, cataracts, thyroid Father Family Medical History: Pulmonary Embolus General Exam Limitations: no limitations General appearance: alert, in no apparent distress Head exam: Present: atraumatic, normocephalic, normal inspection Eye exam: Present: normal appearance, PERRL, EOMI. Absent: scleral icterus, conjunctival injection, periorbital swelling ENT exam: Present: normal exam, normal oropharynx, mucous membranes moist Neck exam: Present: normal inspection, full ROM. Absent: tenderness, meningism us, lymphadenopathy Respiratory exam: Present: normal lung sounds bilaterally. Absent: respiratory distress, wheezes, rales, rhonchi, stridor Cardiovascular Exam: Present: regular rate, normal rhythm, normal heart sounds. Absent: systolic murmur, diastolic murmur, rubs, gallop, clicks GI/Abdominal exam: Present: soft, normal bowel sounds. Absent: distended, tenderness, guarding, rebound, rigid Neurological exam: Present: alert, oriented X3, CN II-XII intact, reflexes normal, other (Finger to nose intact bilaterally without overshooting). Absent: motor sensory deficit Skin exam: Present: warm, dry, intact, normal color. Absent: rash Course Vital Signs 04/21/20 04/21/20 04/21/20 12:07 12:49 13:27 Temperature 98.0 F Pulse Rate 86 86 74 Respiratory 16 16 16 Rate Blood Pressure 120/76 117/86 123/73 O2 Sat by Pulse 97 99 99 Oximetry - Reevaluation(s) Reevaluation #1: 04/21/20 13:26 Patient reevaluated, resting comfortably, states that her dizziness has resolved. 04/21/20 13:26 EKG Findings - EKG Comments: EKG Findings:: EKG performed at 1243 normal sinus rhythm rate of 62 MS 1:30 QRS 86 QTC is QTC 422/428 Medical Decision Making - Medical Decision Making 74-year-old female presented for dizziness. This was positional dizziness. Patient did have complete workup including labs, EKG and CT of the brain there are no acute findings. Patient symptoms have improved after Antivert. She is able to ambulate to the bathroom and back with no ataxia. Patient has no neurological deficits. Patient be discharged with Antivert return parameters were discussed. - Lab Data Result diagrams: 04/21/20 12:18 04/21/20 12:18 Lab Results 04/21/20 04/21/20 04/21/20 Range/Units 12:18 12:18 12:18 WBC 5.1 (3.8-10.6) k/uL RBC 4.28 (3.80-5.40) m/uL Hgb 10.5 L (11.4-16.0) gm/dL Hct 34.4 (34.0-46.0) % MCV 80.4 (80.0-100.0) fL MCH 24.6 L (25.0-35.0) pg MCHC 30.6 L (31.0-37.0) g/dL RDW 15.8 H (11.5-15.5) % Plt Count 309 (150-450) k/uL Neutrophils % 46 % Lymphocytes % 38 % Monocytes % 7 % Eosinophils % 5 % Basophils % 1 % Neutrophils # 2.4 (1.3-7.7) k/uL Lymphocytes # 1.9 (1.0-4.8) k/uL Monocytes # 0.4 (0-1.0) k/uL Eosinophils # 0.3 (0-0.7) k/uL Basophils # 0.1 (0-0.2) k/uL Hypochromasia Marked Sodium 138 (137-145) mmol/L Potassium 3.4 L (3.5-5.1) mmol/L Chloride 104 (98-107) mmol/L Carbon Dioxide 29 (22-30) mmol/L Anion Gap 5 mmol/L BUN 14 (7-17) mg/dL Creatinine 0.50 L (0.52-1.04) mg/dL Est GFR (CKD-EPI)AfAm >90 (>60 ml/min/1.73 sqM) Est GFR (CKD-EPI)NonAf >90 (>60 ml/min/1.73 sqM) Glucose 103 H (74-99) mg/dL Calcium 9.1 (8.4-10.2) mg/dL Total Bilirubin 0.5 (0.2-1.3) mg/dL AST 17 (14-36) U/L ALT 6 (4-34) U/L Alkaline Phosphatase 83 (38-126) U/L Troponin I (0.000-0.034) ng/mL Total Protein 6.3 (6.3-8.2) g/dL Albumin 3.3 L (3.5-5.0) g/dL Urine Color Yellow Urine Appearance Cloudy H (Clear) Urine pH 6.0 (5.0-8.0) Ur Specific Omega 1.016 (1.001-1.035) Urine Protein Trace H (Negative) Urine Glucose (UA) Negative (Negative) Urine Ketones Negative (Negative) Urine Blood Negative (Negative) Urine Nitrite Negative (Negative) Urine Bilirubin Negative (Negative) Urine Urobilinogen <2.0 (<2.0) mg/dL Ur Leukocyte Esterase Moderate H (Negative) Urine RBC 2 (0-5) /hpf Urine WBC 7 H (0-5) /hpf Ur Squamous Epith Cells 2 (0-4) /hpf Hyaline Casts 16 H (0-2) /lpf Urine Mucus Many H (None) /hpf 04/21/20 Range/Units 12:18 WBC (3.8-10.6) k/uL RBC (3.80-5.40) m/uL Hgb (11.4-16.0) gm/dL Hct (34.0-46.0) % MCV (80.0-100.0) fL MCH (25.0-35.0) pg MCHC (31.0-37.0) g/dL RDW (11.5-15.5) % Plt Count (150-450) k/uL Neutrophils % % Lymphocytes % % Monocytes % % Eosinophils % % Basophils % % Neutrophils # (1.3-7.7) k/uL Lymphocytes # (1.0-4.8) k/uL Monocytes # (0-1.0) k/uL Eosinophils # (0-0.7) k/uL Basophils # (0-0.2) k/uL Hypochromasia Sodium (137-145) mmol/L Potassium (3.5-5.1) mmol/L Chloride (98-107) mmol/L Carbon Dioxide (22-30) mmol/L Anion Gap mmol/L BUN (7-17) mg/dL Creatinine (0.52-1.04) mg/dL Est GFR (CKD-EPI)AfAm (>60 ml/min/1.73 sqM) Est GFR (CKD-EPI)NonAf (>60 ml/min/1.73 sqM) Glucose (74-99) mg/dL Calcium (8.4-10.2) mg/dL Total Bilirubin (0.2-1.3) mg/dL AST (14-36) U/L ALT (4-34) U/L Alkaline Phosphatase (38-126) U/L Troponin I <0.012 (0.000-0.034) ng/mL Total Protein (6.3-8.2) g/dL Albumin (3.5-5.0) g/dL Urine Color Urine Appearance (Clear) Urine pH (5.0-8.0) Ur Specific Omega (1.001-1.035) Urine Protein (Negative) Urine Glucose (UA) (Negative) Urine Ketones (Negative) Urine Blood (Negative) Urine Nitrite (Negative) Urine Bilirubin (Negative) Urine Urobilinogen (<2.0) mg/dL Ur Leukocyte Esterase (Negative) Urine RBC (0-5) /hpf Urine WBC (0-5) /hpf Ur Squamous Epith Cells (0-4) /hpf Hyaline Casts (0-2) /lpf Urine Mucus (None) /hpf Disposition Clinical Impression: Vertigo Disposition: HOME SELF-CARE Condition: Stable Instructions (If sedation given, give patient instructions): Dizziness (ED) Additional Instructions: Please return to the Emergency Department if symptoms worsen or any other concerns. Prescriptions: Meclizine [Antivert] 25 mg PO TID PRN #15 tab PRN Reason: Vertigo Is patient prescribed a controlled substance at d/c from ED?: No Referrals: Batsheva Quiroz MD [Primary Care Provider] - 1-2 days Time of Disposition: 13:34
[2020-04-21 12:32] LABS: Basophils # (A) 0.1 k/uL (0-0.2); Basophils % (A) 1 %; Eosinophils # (A) 0.3 k/uL (0-0.7); Eosinophils % (A) 5 %; HCT 34.4 % (34.0-46.0); HGB 10.5 gm/dL (11.4-16.0); Hypochromasia Marked; Lymphocytes # (A) 1.9 k/uL (1.0-4.8); Lymphocytes % (A) 38 %; MCH 24.6 pg (25.0-35.0); MCHC 30.6 g/dL (31.0-37.0); MCV 80.4 fL (80.0-100.0); Mean Platelet Volume 6.7; Monocytes # (A) 0.4 k/uL (0-1.0); Monocytes % (A) 7 %; Neutrophils # (A) 2.4 k/uL (1.3-7.7); Neutrophils % (A) 46 %; Platelet Count 309 k/uL (150-450); RBC 4.28 m/uL (3.80-5.40); RDW 15.8 % (11.5-15.5); WBC 5.1 k/uL (3.8-10.6)
[2020-04-21 12:42] LABS: ALT 6 U/L (4-34); AST 17 U/L (14-36); African American GFR (CKD) >90 (>60 ml/min/1.73 sqM); Albumin 3.3 g/dL (3.5-5.0); Alkaline Phosphatase 83 U/L (38-126); Anion Gap 5 mmol/L; Blood Urea Nitrogen 14 mg/dL (7-17); Calcium 9.1 mg/dL (8.4-10.2); Carbon Dioxide 29 mmol/L (22-30); Chloride 104 mmol/L (98-107); Glucose 103 mg/dL (74-99); Non-African American GFR(CKD) >90 (>60 ml/min/1.73 sqM); Potassium 3.4 mmol/L (3.5-5.1); Sodium 138 mmol/L (137-145); Total Bilirubin 0.5 mg/dL (0.2-1.3); Total Protein 6.3 g/dL (6.3-8.2)
[2020-04-21 12:59] LABS: Appearance,Urine Cloudy (Clear); Bilirubin,Urine Negative (Negative); Blood,Urine Negative (Negative); Color,Urine Yellow; Glucose,Urine (UA) Negative (Negative); Hyaline Casts,Urine 16 /lpf (0-2); Ketones,Urine Negative (Negative); Leukocyte Esterase,Urine Moderate (Negative); Mucus,Urine Many /hpf; Nitrite,Urine Negative (Negative); Protein,Urine Trace (Negative); RBC,Urine 2 /hpf (0-5); Specific Gravity,Urine 1.016 (1.001-1.035); Squamous Epithelial Cell,Urine 2 /hpf (0-4); Urobilinogen,Urine <2.0 mg/dL (<2.0); WBC,Urine 7 /hpf (0-5)
--- NOTE | 2020-04-21 13:31 | CT ---
EXAMINATION TYPE: CT brain wo con DATE OF EXAM: 04/21/2020 HISTORY: Dizziness CT DLP: 1068.4 mGycm. Automated Exposure Control for Dose Reduction was Utilized. TECHNIQUE: CT scan of the head is performed without contrast. COMPARISON: CT brain 12/03/2018 FINDINGS: There is no acute intracranial hemorrhage, midline shift, or mass effect identified. Diffuse volume l oss. Moderate white matter patchy hypodensities redemonstrated, likely sequela of chronic microvascul ar ischemic change. The ventricles, sulci, and cisterns are normal in size and configuration. No extra-axial fluid collection. Bones and extracranial soft tissues are intact. The globes are gross ly symmetric, with cataract postsurgical changes on the right. Visualized sinuses and mastoid air ashley ls are clear. Mild soft tissue density within the bilateral external auditory canals likely cerumen, right greater than left. Multiple extracranial soft tissue cutaneous and subcutaneous nodules redemo nstrated. IMPRESSION: 1. No acute intracranial hemorrhage, midline shift, or mass effect. 2. Volume loss and chronic microvascular ischemic change. 3. Numerous cutaneous and subcutaneous soft tissue nodules redemonstrated.
[2020-04-21 14:00] VITALS: BP 125/86; PULSE 86
== END 2020-04-21 14:07 | disposition home or self-care (01) ==
LOC: EC 12:05
DX: R42 Dizziness and giddiness (principal); E07.9 Disorder of thyroid, unspecified; H54.8 Legal blindness, as defined in USA
CPT/HCPCS: 36415; 70450; 80053; 81001; 84484; 85025; 93005; 96360; 99284

== ENCOUNTER 2021-03-28 17:24 | Inpatient (IN) | payer MEDICARE, BC ==
[2021-03-28] MEDS ORDERED: ACETAMINOPHEN TAB 500 MG TAB PO STA (17:44)
--- NOTE | 2021-03-28 17:47 | ED ---
General Adult HPI - General Chief complaint: Recheck/Abnormal Lab/Rx Stated complaint: weak Time Seen by Provider: 03/28/21 17:27 Source: patient, RN notes reviewed Mode of arrival: EMS Limitations: no limitations - History of Present Illness Initial comments: Patient is a pleasant 75-year-old female presenting to the emergency Department with general weakness. Patient does have chronic falls over the past year or more. Patient has fallen a couple times a past couple of days. Family was concerned patient may have a urinary tract infection however patient is unclear why. Patient does not feel confused. No cough or upper respiratory symptoms. No isolated area of weakness. No abdominal pain. - Related Data Home Medications Medication Instructions Recorded Confirmed Latanoprost/Pf [Latanoprost 0.005% 1 drop LEFT EYE HS 12/03/18 03/28/21 Eye Drop] Levothyroxine Sodium [Synthroid] 75 mcg PO DAILY 12/03/18 03/28/21 Ferrous Sulfate [Feosol] 325 mg PO DAILY 07/25/19 03/28/21 Timolol 0.5% Ophth Soln [Timoptic 1 drop BOTH EYES BID 03/28/21 03/28/21 0.5% Ophth Soln] Allergies Allergy/AdvReac Type Severity Reaction Status Date / Time codeine Allergy Itching Verified 03/28/21 18:45 Review of Systems ROS Statement: Those systems with pertinent positive or pertinent negative responses have been documented in the HPI. ROS Other: All systems not noted in ROS Statement are negative. Constitutional: Denies: fever Eyes: Denies: eye pain ENT: Denies: ear pain Respiratory: Denies: cough, dyspnea Cardiovascular: Denies: chest pain Endocrine: Reports: fatigue Gastrointestinal: Denies: abdominal pain Genitourinary: Denies: dysuria Musculoskeletal: Denies: back pain Skin: Denies: rash Neurological: Reports: as per HPI Past Medical History Past Medical History: Eye Disorder, Liver Disease, Skin Disorder, Thyroid Disorder Additional Past Medical History / Comment(s): hypoglycemia, macular degeneration, glaucoma, cataracts,. Legally BLIND both eyes, Hep B 40 years ago. 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, recent soft tissue core biopsy History of Any Multi-Drug Resistant Organisms: None Reported Past Surgical History: Appendectomy, Cholecystectomy, Hysterectomy Additional Past Surgical History / Comment(s): partial hysterectomy, skin growths "burned off" Past Anesthesia/Blood Transfusion Reactions: No Reported Reaction Past Psychological History: No Psychological Hx Reported Past Alcohol Use History: None Reported Past Drug Use History: None Reported - Past Family History Mother Additional Family Medical History / Comment(s): macualr degeneration, cataracts, thyroid Father Family Medical History: Pulmonary Embolus General Exam Limitations: no limitations General appearance: alert, in no apparent distress Head exam: Present: atraumatic, normocephalic Eye exam: Present: normal appearance Neck exam: Present: normal inspection. Absent: tenderness, meningismus Respiratory exam: Present: normal lung sounds bilaterally Cardiovascular Exam: Present: tachycardia GI/Abdominal exam: Present: soft. Absent: distended, tenderness, guarding, rebound, rigid Extremities exam: Present: normal inspection, full ROM. Absent: tenderness Neurological exam: Present: alert, oriented X3, CN II-XII intact. Absent: motor sensory deficit Expanded Neurological exam: Present: protecting the airway Patient oriented to: Present: person, place, time Speech: Present: fluid speech Motor strength exam: RUE: 5, LUE: 5, RLE: 5, LLE: 5 Eye Response: (4) open spontaneously Motor Response: (6) obeys commands Verbal Response: (5) oriented Psychiatric exam: Present: normal affect, normal mood Skin exam: Present: normal color Course Vital Signs 03/28/21 03/28/21 17:26 19:10 Temperature 102.2 F H 101.3 F H Pulse Rate 116 H Respiratory 18 Rate Blood Pressure 112/78 O2 Sat by Pulse 98 Oximetry - Reevaluation(s) Reevaluation #1: 03/28/21 20:23 Patient does meet sepsis criteria diagnosed at 2020. Blood culture and lactic acid and IV antibiotics will be ordered. EKG Findings - EKG Comments: EKG Findings:: Sinus tachycardia 108. VA 124. QRS 76. QT 328. QTC 4:30. Left axis. LVH criteria. Oral and ST depression V2 through V6. Medical Decision Making - Medical Decision Making Patient reevaluated. Patient family updated. Patient does have some evidence of urinary tract infection. Patient will be held for fluids and IV antibiotics. Case discussed with practitioner Lori Nichole, who will admit for Dr. Mandel, covering for Dr. enrique - Lab Data Result diagrams: 03/28/21 17:48 03/28/21 17:48 Lab Results 03/28/21 03/28/21 03/28/21 Range/Units 17:48 17:48 17:48 WBC 8.4 (3.8-10.6) k/uL RBC 4.67 (3.80-5.40) m/uL Hgb 10.7 L (11.4-16.0) gm/dL Hct 34.9 (34.0-46.0) % MCV 74.8 L (80.0-100.0) fL MCH 22.9 L (25.0-35.0) pg MCHC 30.6 L (31.0-37.0) g/dL RDW 15.6 H (11.5-15.5) % Plt Count 343 (150-450) k/uL MPV 6.9 Neutrophils % 90 % Lymphocytes % 5 % Monocytes % 4 % Eosinophils % 1 % Basophils % 0 % Neutrophils # 7.5 (1.3-7.7) k/uL Lymphocytes # 0.4 L (1.0-4.8) k/uL Monocytes # 0.3 (0-1.0) k/uL Eosinophils # 0.0 (0-0.7) k/uL Basophils # 0.0 (0-0.2) k/uL Hypochromasia Marked Microcytosis Slight PT 12.3 H (9.0-12.0) sec INR 1.2 H (<1.2) APTT 26.7 (22.0-30.0) sec Sodium (137-145) mmol/L Potassium (3.5-5.1) mmol/L Chloride (98-107) mmol/L Carbon Dioxide (22-30) mmol/L Anion Gap mmol/L BUN (7-17) mg/dL Creatinine (0.52-1.04) mg/dL Est GFR (CKD-EPI)AfAm (>60 ml/min/1.73 sqM) Est GFR (CKD-EPI)NonAf (>60 ml/min/1.73 sqM) Glucose (74-99) mg/dL Plasma Lactic Acid Julio Cesar (0.7-2.0) mmol/L Calcium (8.4-10.2) mg/dL Total Bilirubin (0.2-1.3) mg/dL AST (14-36) U/L ALT (4-34) U/L Alkaline Phosphatase (38-126) U/L Creatine Kinase (30-135) U/L Troponin I (0.000-0.034) ng/mL Total Protein (6.3-8.2) g/dL Albumin (3.5-5.0) g/dL Urine Color Yellow Urine Appearance Cloudy H (Clear) Urine pH 5.5 (5.0-8.0) Ur Specific [place] 1.028 (1.001-1.035) Urine Protein 1+ H (Negative) Urine Glucose (UA) Trace H (Negative) Urine Ketones 1+ H (Negative) Urine Blood Trace H (Negative) Urine Nitrite Negative (Negative) Urine Bilirubin Negative (Negative) Urine Urobilinogen 3.0 (<2.0) mg/dL Ur Leukocyte Esterase Large H (Negative) Urine RBC 2 (0-5) /hpf Urine WBC 12 H (0-5) /hpf Ur Squamous Epith Cells 4 (0-4) /hpf Urine Mucus Many H (None) /hpf Coronavirus (PCR) (Not Detectd) Influenza Type A RNA (Not Detectd) Influenza Type B (PCR) (Not Detectd) 03/28/21 03/28/21 03/28/21 Range/Units 17:48 17:48 17:48 WBC (3.8-10.6) k/uL RBC (3.80-5.40) m/uL Hgb (11.4-16.0) gm/dL Hct (34.0-46.0) % MCV (80.0-100.0) fL MCH (25.0-35.0) pg MCHC (31.0-37.0) g/dL RDW (11.5-15.5) % Plt Count (150-450) k/uL MPV Neutrophils % % Lymphocytes % % Monocytes % % Eosinophils % % Basophils % % Neutrophils # (1.3-7.7) k/uL Lymphocytes # (1.0-4.8) k/uL Monocytes # (0-1.0) k/uL Eosinophils # (0-0.7) k/uL Basophils # (0-0.2) k/uL Hypochromasia Microcytosis PT (9.0-12.0) sec INR (<1.2) APTT (22.0-30.0) sec Sodium 130 L (137-145) mmol/L Potassium 3.4 L (3.5-5.1) mmol/L Chloride 97 L (98-107) mmol/L Carbon Dioxide 26 (22-30) mmol/L Anion Gap 7 mmol/L BUN 14 (7-17) mg/dL Creatinine 0.47 L (0.52-1.04) mg/dL Est GFR (CKD-EPI)AfAm >90 (>60 ml/min/1.73 sqM) Est GFR (CKD-EPI)NonAf >90 (>60 ml/min/1.73 sqM) Glucose 126 H (74-99) mg/dL Plasma Lactic Acid Julio Cesar 1.1 (0.7-2.0) mmol/L Calcium 8.7 (8.4-10.2) mg/dL Total Bilirubin 0.8 (0.2-1.3) mg/dL AST 15 (14-36) U/L ALT 6 (4-34) U/L Alkaline Phosphatase 92 (38-126) U/L Creatine Kinase 28 L (30-135) U/L Troponin I (0.000-0.034) ng/mL Total Protein 6.0 L (6.3-8.2) g/dL Albumin 2.9 L (3.5-5.0) g/dL Urine Color Urine Appearance (Clear) Urine pH (5.0-8.0) Ur Specific [place] (1.001-1.035) Urine Protein (Negative) Urine Glucose (UA) (Negative) Urine Ketones (Negative) Urine Blood (Negative) Urine Nitrite (Negative) Urine Bilirubin (Negative) Urine Urobilinogen (<2.0) mg/dL Ur Leukocyte Esterase (Negative) Urine RBC (0-5) /hpf Urine WBC (0-5) /hpf Ur Squamous Epith Cells (0-4) /hpf Urine Mucus (None) /hpf Coronavirus (PCR) Not Detected (Not Detectd) Influenza Type A RNA (Not Detectd) Influenza Type B (PCR) (Not Detectd) 03/28/21 03/28/21 Range/Units 17:48 Unknown WBC (3.8-10.6) k/uL RBC (3.80-5.40) m/uL Hgb (11.4-16.0) gm/dL Hct (34.0-46.0) % MCV (80.0-100.0) fL MCH (25.0-35.0) pg MCHC (31.0-37.0) g/dL RDW (11.5-15.5) % Plt Count (150-450) k/uL MPV Neutrophils % % Lymphocytes % % Monocytes % % Eosinophils % % Basophils % % Neutrophils # (1.3-7.7) k/uL Lymphocytes # (1.0-4.8) k/uL Monocytes # (0-1.0) k/uL Eosinophils # (0-0.7) k/uL Basophils # (0-0.2) k/uL Hypochromasia Microcytosis PT (9.0-12.0) sec INR (<1.2) APTT (22.0-30.0) sec Sodium (137-145) mmol/L Potassium (3.5-5.1) mmol/L Chloride (98-107) mmol/L Carbon Dioxide (22-30) mmol/L Anion Gap mmol/L BUN (7-17) mg/dL Creatinine (0.52-1.04) mg/dL Est GFR (CKD-EPI)AfAm (>60 ml/min/1.73 sqM) Est GFR (CKD-EPI)NonAf (>60 ml/min/1.73 sqM) Glucose (74-99) mg/dL Plasma Lactic Acid Julio Cesar (0.7-2.0) mmol/L Calcium (8.4-10.2) mg/dL Total Bilirubin (0.2-1.3) mg/dL AST (14-36) U/L ALT (4-34) U/L Alkaline Phosphatase (38-126) U/L Creatine Kinase (30-135) U/L Troponin I 0.015 (0.000-0.034) ng/mL Total Protein (6.3-8.2) g/dL Albumin (3.5-5.0) g/dL Urine Color Urine Appearance (Clear) Urine pH (5.0-8.0) Ur Specific [place] (1.001-1.035) Urine Protein (Negative) Urine Glucose (UA) (Negative) Urine Ketones (Negative) Urine Blood (Negative) Urine Nitrite (Negative) Urine Bilirubin (Negative) Urine Urobilinogen (<2.0) mg/dL Ur Leukocyte Esterase (Negative) Urine RBC (0-5) /hpf Urine WBC (0-5) /hpf Ur Squamous Epith Cells (0-4) /hpf Urine Mucus (None) /hpf Coronavirus (PCR) (Not Detectd) Influenza Type A RNA Not Detected (Not Detectd) Influenza Type B (PCR) Not Detected (Not Detectd) - Radiology Data Radiology results: image reviewed (Chest x-ray shows no acute process) Disposition Clinical Impression: Urinary tract infection, Sepsis Disposition: ADMITTED IP TO THIS HOSP Is patient prescribed a controlled substance at d/c from ED?: No Referrals: Batsheva Enrique MD [Primary Care Provider] - 1-2 days Decision Time: 20:23
[2021-03-28] MEDS: SODIUM CHLORIDE 0.9% 1,000 ML IV SCH (18:11)
[2021-03-28 18:15] LABS: Basophils % (A) 0 %; Eosinophils % (A) 1 %; HCT 34.9 % (34.0-46.0); HGB 10.7 gm/dL (11.4-16.0); Hypochromasia Marked; Lymphocytes # (A) 0.4 k/uL (1.0-4.8); Lymphocytes % (A) 5 %; MCH 22.9 pg (25.0-35.0); MCHC 30.6 g/dL (31.0-37.0); MCV 74.8 fL (80.0-100.0); Mean Platelet Volume 6.9; Microcytosis Slight; Monocytes # (A) 0.3 k/uL (0-1.0); Monocytes % (A) 4 %; Neutrophils # (A) 7.5 k/uL (1.3-7.7); Neutrophils % (A) 90 %; Platelet Count 343 k/uL (150-450); RBC 4.67 m/uL (3.80-5.40); RDW 15.6 % (11.5-15.5); WBC 8.4 k/uL (3.8-10.6)
--- NOTE | 2021-03-28 18:24 | XR ---
EXAMINATION TYPE: XR chest 2V DATE OF EXAM: 03/28/2021 COMPARISON: 12/03/2018 HISTORY: Dizziness. Weakness. TECHNIQUE: 2 views FINDINGS: Heart is normal. Lungs are clear of infiltrate. There is no heart failure. Thoracic aorta i s atheromatous. Bony thorax is intact. IMPRESSION: No active cardiopulmonary disease. No change.
[2021-03-28 18:25] LABS: INR 1.2 (<1.2); Partial Thromboplastin Time 26.7 sec (22.0-30.0); Prothrombin Time 12.3 sec (9.0-12.0)
[2021-03-28 18:26] LABS: ALT 6 U/L (4-34); AST 15 U/L (14-36); African American GFR (CKD) >90 (>60 ml/min/1.73 sqM); Albumin 2.9 g/dL (3.5-5.0); Alkaline Phosphatase 92 U/L (38-126); Anion Gap 7 mmol/L; Blood Urea Nitrogen 14 mg/dL (7-17); Calcium 8.7 mg/dL (8.4-10.2); Carbon Dioxide 26 mmol/L (22-30); Chloride 97 mmol/L (98-107); Creatine Kinase 28 U/L (30-135); Glucose 126 mg/dL (74-99); Non-African American GFR(CKD) >90 (>60 ml/min/1.73 sqM); Potassium 3.4 mmol/L (3.5-5.1); Sodium 130 mmol/L (137-145); Total Bilirubin 0.8 mg/dL (0.2-1.3)
[2021-03-28 19:26] LABS: Appearance,Urine Cloudy (Clear); Bilirubin,Urine Negative (Negative); Blood,Urine Trace (Negative); Color,Urine Yellow; Glucose,Urine (UA) Trace (Negative); Ketones,Urine 1+ (Negative); Leukocyte Esterase,Urine Large (Negative); Mucus,Urine Many /hpf; Nitrite,Urine Negative (Negative); PH, Urine 5.5 (5.0-8.0); Protein,Urine 1+ (Negative); RBC,Urine 2 /hpf (0-5); Specific Gravity,Urine 1.028 (1.001-1.035); Squamous Epithelial Cell,Urine 4 /hpf (0-4); WBC,Urine 12 /hpf (0-5)
[2021-03-28] MEDS ORDERED: NALOXONE 0.4 MG/ML 1 ML VIAL IV PRN (20:26)
[2021-03-28 20:49] LABS: Glucose,Whole Blood 120 mg/dL (75-99)
[2021-03-28] MEDS ORDERED: Potassium Replacement Protocol 1 EACH MISC MISCELLANE PRN (23:18)
[2021-03-29] MEDS: ACETAMINOPHEN TAB 325 MG TAB PO PRN ×2 (02:00→19:53)
[2021-03-29] MEDS: SODIUM CHLORIDE 0.9% 1,000 ML IV SCH ×4 (03:33→22:04)
[2021-03-29] MEDS: POTASSIUM CHLORIDE ER 20 MEQ TAB.ER PO SCH ×4 (03:36→10:25)
[2021-03-29] MEDS: LEVOTHYROXINE 75 MCG TAB PO SCH (05:36)
[2021-03-29 07:15] LABS: ALT 8 U/L (4-34); AST 20 U/L (14-36); African American GFR (CKD) >90 (>60 ml/min/1.73 sqM); Albumin 2.2 g/dL (3.5-5.0); Albumin/Globulin Ratio 0.8; Alkaline Phosphatase 68 U/L (38-126); Anion Gap 6 mmol/L; Blood Urea Nitrogen 13 mg/dL (7-17); Calcium 8.1 mg/dL (8.4-10.2); Carbon Dioxide 26 mmol/L (22-30); Chloride 101 mmol/L (98-107); Globulin 2.8 g/dL; Glucose 116 mg/dL (74-99); Non-African American GFR(CKD) >90 (>60 ml/min/1.73 sqM); Potassium 3.3 mmol/L (3.5-5.1); Sodium 133 mmol/L (137-145); Total Bilirubin 0.4 mg/dL (0.2-1.3)
[2021-03-29] MEDS ORDERED: Potassium Replacement Protocol 1 EACH MISC MISCELLANE PRN (07:33)
[2021-03-29] MEDS: FERROUS SULFATE 325 MG TAB PO SCH (09:16)
[2021-03-29] MEDS: TIMOLOL 0.5% OPHTH DROPS 5 ML BTL BOTH EYES SCH ×3 (09:16→19:58)
[2021-03-29 09:36] LABS: Basophils # (A) 0.02 X 10*3/uL (0.00-0.10); Basophils % (A) 0.5 %; Eosinophils # (A) 0 X 10*3/uL (0.04-0.35); Eosinophils % (A) 0 %; HCT 28.6 % (37.2-46.3); HGB 8.3 g/dL (12.0-15.0); Lymphocytes # (A) 0.35 X 10*3/uL (0.90-5.00); Lymphocytes % (A) 8.8 %; MCH 21.9 pg (27.0-32.0); MCV 75.5 fL (80.0-97.0); Mean Platelet Volume 8.6 fL (9.5-12.2); Monocytes % (A) 7.6 %; Neutrophils # (A) 3.28 X 10*3/uL (1.80-7.70); Neutrophils % (A) 82.6 %; Platelet Count 252 X 10*3/uL (140-440); RBC 3.79 X 10*6/uL (4.10-5.20); RDW 16.4 % (11.5-14.5); WBC 3.97 X 10*3/uL (4.50-10.00)
[2021-03-29 13:53] VITALS: BMI 22.8
--- NOTE | 2021-03-29 15:03 | P.HPIM ---
History of Present Illness H&P Date: 03/29/21 This is a 75-year-old female who was brought to the emergency room having frequent falls at home with fever. Patient does have a past medical history of being legally blind in both eyes, thyroid disorder, ocular degeneration, glaucoma, cataracts and hypothyroidism. Patient does live with her sister at the home and has been having more frequent falls and unsteady gait lately. Patient does have a walker in the home but does not use it. Patient denied any fevers in the home but upon arrival to the emergency room was found to have a fever of 102.2 and mildly tachycardic at 116. Patient being admitted for acute urinary tract infection with sepsis present on admission, frequent falls. Patie nt being started on IV antibiotics in the form of Rocephin and infectious disease consulted. Sodium was also found to be low at 1:30 with a potassium of 3.4 and current creatinine was 0.47. Patient appears to have iron deficiency anemia and after talking with sister she was to follow with hematology Dr. Reyes for an appointment today for further workup. Patient has been taking ferrous sulfate in the outpatient setting. She denies any chest pain, shortness of breath, or palpitations. Patient denies any nausea or vomiting or abdominal pain. Chest x-ray on admission shows no acute active cardiopulmonary disease with no heart failure and lungs are clear of infiltrate. EKG showed sinus tac hycardia. Review of Systems Constitutional: Reports chills, Reports fatigue, Reports fever, Reports lethargy, Reports weakness Ears, nose, mouth and throat: Reports vertigo Cardiovascular: Denies chest pain, Denies shortness of breath Respiratory: Denies cough Gastrointestinal: Denies abdominal pain, Denies diarrhea, Denies nausea, Denies vomiting Genitourinary: Reports dysuria, Reports urgency, Reports urinary frequency Musculoskeletal: Reports frequent falls, Reports gait dysfunction, Reports myalgias Integumentary: Denies pruritus, Denies rash Neurological: Reports change in mentation, Reports vertigo, Reports weakness Psychiatric: Denies anxiety, Denies depression Endocrine: Denies fatigue, Denies weight change Past Medical History Past Medical History: Eye Disorder, Skin Disorder, Thyroid Disorder Additional Past Medical History / Comment(s): hypoglycemia, macular degeneration, glaucoma, cataracts,. Legally BLIND both eyes, Hep B 40 years ago. 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, recent soft tissue core biopsy History of Any Multi-Drug Resistant Organisms: None Reported Past Surgical History: Appendectomy, Cholecystectomy, Hysterectomy Additional Past Surgical History / Comment(s): partial hysterectomy, skin growths "burned off" Past Anesthesia/Blood Transfusion Reactions: No Reported Reaction Past Psychological History: No Psychological Hx Reported Additional Psychological History / Comment(s): lives with sister. pt required assistance due to legally blind Smoking Status: Never smoker Past Alcohol Use History: None Reported Past Drug Use History: None Reported - Past Family History Mother Additional Family Medical History / Comment(s): macualr degeneration, cataracts, thyroid Father Family Medical History: Pulmonary Embolus Medications and Allergies Home Medications Medication Instructions Recorded Confirmed Type Latanoprost/Pf [Latanoprost 0.005% 1 drop LEFT EYE HS 12/03/18 03/28/21 History Eye Drop] Levothyroxine Sodium [Synthroid] 75 mcg PO DAILY 12/03/18 03/28/21 History Ferrous Sulfate [Feosol] 325 mg PO DAILY 07/25/19 03/28/21 History Timolol 0.5% Ophth Soln [Timoptic 1 drop BOTH EYES BID 03/28/21 03/28/21 History 0.5% Ophth Soln] Allergies Allergy/AdvReac Type Severity Reaction Status Date / Time codeine Allergy Itching Verified 03/28/21 18:45 Physical Exam Vitals: Vital Signs Temp Pulse Pulse Resp BP BP Pulse Ox 03/29/21 06:47 98.5 F 79 18 81/49 99 03/29/21 02:00 98.1 F 03/29/21 01:36 102.5 F H 111 H 19 98/59 94 L 03/28/21 20:37 98 18 105/69 95 03/28/21 20:27 98.7 F 03/28/21 19:10 101.3 F H 03/28/21 17:26 102.2 F H 116 H 18 112/78 98 Intake and Output 03/28/21 03/29/21 03/29/21 22:59 06:59 14:59 Intake Total 1950 Balance 1950 Intake: Intake, IV Titration 1350 Amount Sodium Chloride 0.9% 1, 1300 000 ml @ 130 mls/hr IV . Q7H42M [facility] Rx#:[id number] cefTRIAXone 1 gm In 50 Sodium Chloride 0.9% 50 ml @ 100 mls/hr IVPB Q12HR [facility] Rx#:[id number] Oral 600 Other: Voiding Method Bedpan # Voids 5 # Bowel Movements 0 Weight 70.307 kg Gen: This is a 75-year-old female awake, alert and oriented 2-3, thin built, ill-appearing HEENT: Head is atraumatic, normocephalic. Pupils equal, round. Sclerae is anicteric. NECK: Supple. No JVD. No lymphadenopathy. No thyromegaly. LUNGS: Clear to auscultation. No wheezes or rhonchi. No intercostal retractions. HEART: Regular rate and rhythm. No murmur. ABDOMEN: Soft. Bowel sounds are present. No masses. No tenderness. EXTREMITIES: No pedal edema. No calf tenderness. NEUROLOGICAL: Patient is awake, alert and oriented x2-3. Diffusely weak. Results CBC & Chem 7: 03/29/21 06:28 03/29/21 06:28 Labs: Abnormal Lab Results - Last 24 Hours (Table) 03/28/21 03/28/21 03/28/21 Range/Units 17:48 17:48 17:48 Hgb 10.7 L (11.4-16.0) gm/dL MCV 74.8 L (80.0-100.0) fL MCH 22.9 L (25.0-35.0) pg MCHC 30.6 L (31.0-37.0) g/dL RDW 15.6 H (11.5-15.5) % Lymphocytes # 0.4 L (1.0-4.8) k/uL PT 12.3 H (9.0-12.0) sec INR 1.2 H (<1.2) Sodium (137-145) mmol/L Potassium (3.5-5.1) mmol/L Chloride (98-107) mmol/L Creatinine (0.52-1.04) mg/dL Glucose (74-99) mg/dL POC Glucose (mg/dL) (75-99) mg/dL Calcium (8.4-10.2) mg/dL Creatine Kinase (30-135) U/L Total Protein (6.3-8.2) g/dL Albumin (3.5-5.0) g/dL Urine Appearance Cloudy H (Clear) Urine Protein 1+ H (Negative) Urine Glucose (UA) Trace H (Negative) Urine Ketones 1+ H (Negative) Urine Blood Trace H (Negative) Ur Leukocyte Esterase Large H (Negative) Urine WBC 12 H (0-5) /hpf Urine Mucus Many H (None) /hpf 03/28/21 03/28/21 03/29/21 Range/Units 17:48 20:48 06:28 Hgb (11.4-16.0) gm/dL MCV (80.0-100.0) fL MCH (25.0-35.0) pg MCHC (31.0-37.0) g/dL RDW (11.5-15.5) % Lymphocytes # (1.0-4.8) k/uL PT (9.0-12.0) sec INR (<1.2) Sodium 130 L 133 L (137-145) mmol/L Potassium 3.4 L 3.3 L (3.5-5.1) mmol/L Chloride 97 L (98-107) mmol/L Creatinine 0.47 L 0.39 L (0.52-1.04) mg/dL Glucose 126 H 116 H (74-99) mg/dL POC Glucose (mg/dL) 120 H (75-99) mg/dL Calcium 8.1 L (8.4-10.2) mg/dL Creatine Kinase 28 L (30-135) U/L Total Protein 6.0 L 5.0 L (6.3-8.2) g/dL Albumin 2.9 L 2.2 L (3.5-5.0) g/dL Urine Appearance (Clear) Urine Protein (Negative) Urine Glucose (UA) (Negative) Urine Ketones (Negative) Urine Blood (Negative) Ur Leukocyte Esterase (Negative) Urine WBC (0-5) /hpf Urine Mucus (None) /hpf Microbiology - Last 24 Hours (Table) 03/28/21 17:48 Urine Culture - Preliminary Urine,Voided Thrombosis Risk Factor Assmnt - DVT/VTE Prophylaxis DVT/VTE Prophylaxis: Pharmacologic Prophylaxis ordered - Choose All That Apply Any of the Below Risk Factors Present?: Yes Each Factor Represents 1 point: Medical pt on bed rest Other Risk Factors: Yes Each Risk Factor Represents 2 Points: Age 61-74 years Thrombosis Risk Factor Assessment Total Risk Factor Score: 3 Thrombosis Risk Factor Assessment Level: Moderate Risk Assessment and Plan Assessment: Sepsis, present on admission possibly secondary to acute urinary tract infection with associated fevers Possible acute urinary tract infection, present on admission Hypovolemic hyponatremia will continue with IV hydration and repeat labs Natriuretic hypokalemia Microcytic anemia with possible iron deficiency anemia will order ferritin labs Mild toxic encephalopathy secondary to acute urinary tract infection Weakness with frequent falls Gait dysfunction Legally blind in bilateral eyes Hypothyroidism History of hypoglycemia Workup in progress in the outpatient setting for iron deficiency anemia GI prophylaxis DVT prophylaxis Plan: Patient will continue on IV hydration and repeat labs. Patient was started on IV antibiotics in the form of ceftriaxone and will await culture finalization to determine discharge antibiotics. Infectious disease consulted and pending. With continued fevers and recommend continuing with Tylenol and close monitoring. Will have PT/OT therapy evaluate the patient as she has been having frequent falls. Patient lives with sister and she plans on returning home with her. Patient is requesting to go home today although with continued fevers and urinalysis is not resulted yet recommend close monitoring with repeat labs and await for culture finalization. Will Replace electrolytes per protocol. Time with Patient: Greater than 30
[2021-03-29] MEDS: HEPARIN SODIUM,PORCINE/PF 5,000 UNIT/0.5 ML SYRINGE SQ SCH (19:54)
[2021-03-29] MEDS: LATANOPROST 0.005% OPHTH DROPS 2.5 ML BTL LEFT EYE SCH (22:03)
--- NOTE | 2021-03-29 22:41 | P.CONS ---
History of Present Illness - Reason for Consult Consult date: 03/29/21 UTI Requesting physician: Elissa Holder - Chief Complaint weakness and falls x few days - History of Present Illness History of present illness : Patient is 75-year-old female presenting to the ER at [facility] yesterday for evaluation of generalized weakness in this patient also complaining of multiple falls over the last few days patient denies hitting her head or loss in any consciousness patient family was concerned about possible urinary tract infection with the symptom the patient was brought to the hospital on presentation to the hospital patient did have a fever of 102 degree form height patient did have a normal white count with a left shift subsequently have some leukopenia kidney function has been normal liver enzymes are normal patient did have positive UA with large leukocyte esterase 12 WBC ro PCR was negative urine culture has been repeated which are currently pending patient did have a chest x-ray no active cardiopulmonary disease patient was admitted to the hospital infectious disease was consulted for further management. Patient currently complaining of feeling weak and tired but denies having any headache no URI symptoms no chest pain shortness of breath or cough no vomiting no abdominal pain no diarrhea did have some urinary frequency but no burning suprapubic or flank pain Review of system: CONSTITUTIONAL: Positive for weakness along with the fever. EYES: No complaint. ENT: No complaint. RESPIRATORY: No complaint. CARDIOVASCULAR: No complaint. GENITOURINARY: As per history of present illness GASTROINTESTINAL: No complaint. MUSCULOSKELETAL: No complaint. INTEGUMENTARY: No complaint. PSYCHOLOGIC: No complaint. ENDOCRINE: No complaint. NEUROLOGIC: No complaint. Past medical history : Reviewed, documented below Past surgical history : Reviewed, documented below Social history: Reviewed, documented below Medications: Reviewed, as documented below EXAMINATION: Vital sigans= Reviewed and documented below GENERAL DESCRIPTION: Elderly female lying in bed, no distress. No tachypnea or accessory muscle of respiration use. HEENT: Shows Pallor , no scleral icterus. Oral mucous membrane is dry. NECK: Trachea central, no thyromegaly. LUNGS: Unlabored breathing. Clear to auscultation anteriorly. No wheeze or crackle. HEART: S1, S2, regular rate and rhythm. ABDOMEN: Soft, no tenderness , guarding or rigidity EXTREMITIES: No edema of feet. SKIN: No rash, no masses palpable. NEUROLOGICAL: The patient is awake, alert, oriented x2, mood and affect normal. LABS AND RADIOLOGY: Reviewed results see below Assessment : Patient presented to hospital with weakness falls in this patient who did have a fever he did have a positive UA with urinary symptoms of frequency concerning for asymptomatic urinary tract infection likely from enteric gram-negative pathogen as currently no other obvious focus of infection Plan: 1-Rocephin 2 g daily 2-gentle IV fluid We will follow on clinical condition and cultures to further adjust medication if needed Thank you for this consultation we will follow the patient along with you Past Medical History Past Medical History: Eye Disorder, Skin Disorder, Thyroid Disorder Additional Past Medical History / Comment(s): hypoglycemia, macular degeneration, glaucoma, cataracts,. Legally BLIND both eyes, Hep B 40 years ago. 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, recent soft tissue core biopsy History of Any Multi-Drug Resistant Organisms: None Reported Past Surgical History: Appendectomy, Cholecystectomy, Hysterectomy Additional Past Surgical History / Comment(s): partial hysterectomy, skin growths "burned off" Past Anesthesia/Blood Transfusion Reactions: No Reported Reaction Past Psychological History: No Psychological Hx Reported Additional Psychological History / Comment(s): lives with sister. pt required a ssistance due to legally blind Smoking Status: Never smoker Past Alcohol Use History: None Reported Past Drug Use History: None Reported - Past Family History Mother Additional Family Medical History / Comment(s): macualr degeneration, cataracts, thyroid Father Family Medical History: Pulmonary Embolus Medications and Allergies Home Medications Medication Instructions Recorded Confirmed Type Latanoprost/Pf [Latanoprost 0.005% 1 drop LEFT EYE HS 12/03/18 03/28/21 History Eye Drop] Levothyroxine Sodium [Synthroid] 75 mcg PO DAILY 12/03/18 03/28/21 History Ferrous Sulfate [Feosol] 325 mg PO DAILY 07/25/19 03/28/21 History Timolol 0.5% Ophth Soln [Timoptic 1 drop BOTH EYES BID 03/28/21 03/28/21 History 0.5% Ophth Soln] Allergies Allergy/AdvReac Type Severity Reaction Status Date / Time codeine Allergy Itching Verified 03/28/21 18:45 Physical Exam Vitals: Vital Signs Temp Pulse Pulse Resp BP BP Pulse Ox 03/29/21 09:00 109/68 03/29/21 06:47 98.5 F 79 18 81/49 99 03/29/21 02:00 98.1 F 03/29/21 01:36 102.5 F H 111 H 19 98/59 94 L 03/28/21 20:37 98 18 105/69 95 03/28/21 20:27 98.7 F 03/28/21 19:10 101.3 F H 03/28/21 17:26 102.2 F H 116 H 18 112/78 98 Intake and Output 03/28/21 03/29/21 03/29/21 22:59 06:59 14:59 Intake Total 1950 Balance 1950 Intake: Intake, IV Titration 1350 Amount Sodium Chloride 0.9% 1, 1300 000 ml @ 130 mls/hr IV . Q7H42M [facility] Rx#:[id number] cefTRIAXone 1 gm In 50 Sodium Chloride 0.9% 50 ml @ 100 mls/hr IVPB Q12HR [facility] Rx#:[id number] Oral 600 Other: Voiding Method Bedpan # Voids 5 # Bowel Movements 0 Weight 70.307 kg Results CBC & Chem 7: 03/29/21 06:28 03/29/21 06:28 Labs: Abnormal Lab Results - Last 24 Hours (Table) 03/28/21 03/28/21 03/28/21 Range/Units 17:48 17:48 17:48 WBC (4.50-10.00) X 10*3/uL RBC (4.10-5.20) X 10*6/uL Hgb 10.7 L (11.4-16.0) gm/dL Hct (37.2-46.3) % MCV 74.8 L (80.0-100.0) fL MCH 22.9 L (25.0-35.0) pg MCHC 30.6 L (31.0-37.0) g/dL RDW 15.6 H (11.5-15.5) % MPV (9.5-12.2) fL Lymphocytes # 0.4 L (1.0-4.8) k/uL Eosinophils # (0.04-0.35) X 10*3/uL PT 12.3 H (9.0-12.0) sec INR 1.2 H (<1.2) Sodium (137-145) mmol/L Potassium (3.5-5.1) mmol/L Chloride (98-107) mmol/L Creatinine (0.52-1.04) mg/dL Glucose (74-99) mg/dL POC Glucose (mg/dL) (75-99) mg/dL Calcium (8.4-10.2) mg/dL Creatine Kinase (30-135) U/L Total Protein (6.3-8.2) g/dL Albumin (3.5-5.0) g/dL Urine Appearance Cloudy H (Clear) Urine Protein 1+ H (Negative) Urine Glucose (UA) Trace H (Negative) Urine Ketones 1+ H (Negative) Urine Blood Trace H (Negative) Ur Leukocyte Esterase Large H (Negative) Urine WBC 12 H (0-5) /hpf Urine Mucus Many H (None) /hpf 03/28/21 03/28/21 03/29/21 Range/Units 17:48 20:48 06:28 WBC 3.97 L (4.50-10.00) X 10*3/uL RBC 3.79 L (4.10-5.20) X 10*6/uL Hgb 8.3 L (11.4-16.0) gm/dL Hct 28.6 L (37.2-46.3) % MCV 75.5 L (80.0-100.0) fL MCH 21.9 L (25.0-35.0) pg MCHC 29.0 L (31.0-37.0) g/dL RDW 16.4 H (11.5-15.5) % MPV 8.6 L (9.5-12.2) fL Lymphocytes # 0.35 L (1.0-4.8) k/uL Eosinophils # 0 L (0.04-0.35) X 10*3/uL PT (9.0-12.0) sec INR (<1.2) Sodium 130 L (137-145) mmol/L Potassium 3.4 L (3.5-5.1) mmol/L Chloride 97 L (98-107) mmol/L Creatinine 0.47 L (0.52-1.04) mg/dL Glucose 126 H (74-99) mg/dL POC Glucose (mg/dL) 120 H (75-99) mg/dL Calcium (8.4-10.2) mg/dL Creatine Kinase 28 L (30-135) U/L Total Protein 6.0 L (6.3-8.2) g/dL Albumin 2.9 L (3.5-5.0) g/dL Urine Appearance (Clear) Urine Protein (Negative) Urine Glucose (UA) (Negative) Urine Ketones (Negative) Urine Blood (Negative) Ur Leukocyte Esterase (Negative) Urine WBC (0-5) /hpf Urine Mucus (None) /hpf 03/29/21 Range/Units 06:28 WBC (4.50-10.00) X 10*3/uL RBC (4.10-5.20) X 10*6/uL Hgb (11.4-16.0) gm/dL Hct (37.2-46.3) % MCV (80.0-100.0) fL MCH (25.0-35.0) pg MCHC (31.0-37.0) g/dL RDW (11.5-15.5) % MPV (9.5-12.2) fL Lymphocytes # (1.0-4.8) k/uL Eosinophils # (0.04-0.35) X 10*3/uL PT (9.0-12.0) sec INR (<1.2) Sodium 133 L (137-145) mmol/L Potassium 3.3 L (3.5-5.1) mmol/L Chloride (98-107) mmol/L Creatinine 0.39 L (0.52-1.04) mg/dL Glucose 116 H (74-99) mg/dL POC Glucose (mg/dL) (75-99) mg/dL Calcium 8.1 L (8.4-10.2) mg/dL Creatine Kinase (30-135) U/L Total Protein 5.0 L (6.3-8.2) g/dL Albumin 2.2 L (3.5-5.0) g/dL Urine Appearance (Clear) Urine Protein (Negative) Urine Glucose (UA) (Negative) Urine Ketones (Negative) Urine Blood (Negative) Ur Leukocyte Esterase (Negative) Urine WBC (0-5) /hpf Urine Mucus (None) /hpf Microbiology - Last 24 Hours (Table) 03/28/21 17:48 Urine Culture - Preliminary Urine,Voided
[2021-03-30] MEDS: LEVOTHYROXINE 75 MCG TAB PO SCH (06:03)
[2021-03-30] MEDS: PANTOPRAZOLE 40 MG TABLET PO SCH (08:16)
[2021-03-30] MEDS: FERROUS SULFATE 325 MG TAB PO SCH (08:16)
[2021-03-30] MEDS: TIMOLOL 0.5% OPHTH DROPS 5 ML BTL BOTH EYES SCH ×2 (08:17→20:33)
[2021-03-30] MEDS: HEPARIN SODIUM,PORCINE/PF 5,000 UNIT/0.5 ML SYRINGE SQ SCH ×2 (08:17→20:29)
[2021-03-30 09:03] LABS: Basophils % (A) 1 %; Eosinophils % (A) 1 %; HCT 32.3 % (34.0-46.0); HGB 9.8 gm/dL (11.4-16.0); Hypochromasia Marked; Lymphocytes # (A) 0.5 k/uL (1.0-4.8); Lymphocytes % (A) 9 %; MCH 22.7 pg (25.0-35.0); MCHC 30.2 g/dL (31.0-37.0); MCV 75.2 fL (80.0-100.0); Mean Platelet Volume 6.9; Microcytosis Slight; Monocytes # (A) 0.2 k/uL (0-1.0); Monocytes % (A) 3 %; Neutrophils % (A) 85 %; Platelet Count 309 k/uL (150-450); RBC 4.29 m/uL (3.80-5.40); RDW 15.8 % (11.5-15.5); WBC 5.9 k/uL (3.8-10.6)
[2021-03-30 09:23] LABS: African American GFR (CKD) >90 (>60 ml/min/1.73 sqM); Anion Gap 7 mmol/L; Blood Urea Nitrogen 11 mg/dL (7-17); Calcium 8.3 mg/dL (8.4-10.2); Carbon Dioxide 24 mmol/L (22-30); Chloride 102 mmol/L (98-107); Glucose 145 mg/dL (74-99); Non-African American GFR(CKD) >90 (>60 ml/min/1.73 sqM); Potassium 3.3 mmol/L (3.5-5.1); Sodium 133 mmol/L (137-145)
[2021-03-30] MEDS ORDERED: POTASSIUM CHLORIDE ER 20 MEQ TAB.ER PO STA (09:32)
--- NOTE | 2021-03-30 13:20 | P.PN ---
Subjective Progress Note Date: 03/30/21 This is a 75-year-old female who was brought to the emergency room having frequent falls at home with fever. Patient does have a past medical history of being legally blind in both eyes, thyroid disorder, ocular degeneration, glaucoma, cataracts and hypothyroidism. Patient does live with her sister at the home and has been having more frequent falls and unsteady gait lately. Patient does have a walker in the home but does not use it. Patient denied any fevers in the home but upon arrival to the emergency room was found to have a fever of 102.2 and mildly tachycardic at 116. Patient being admitted for acute urinary tract infection with sepsis present on admission, frequent falls. Patient being started on IV antibiotics in the form of Rocephin and infectious disease consulted. Sodium was also found to be low at 1:30 with a potassium of 3.4 and current creatinine was 0.47. Patient appears to have iron deficiency anemia and after talking with sister she was to follow with hematology Dr. Reyes for an appointment today for further workup. Patient has been taking ferrous sulfate in the outpatient setting. She denies any chest pain, shortness of breath, or palpitations. Patient denies any nausea or vomiting or abdominal pain. Chest x-ray on admission shows no acute active cardiopulmonary disease with no heart failure and lungs are clear of infiltrate. EKG showed sinus tachycardia. Review of systems: Constitutional: No reports of fatigue, fever, or chills Cardiovascular: No reports of chest pain or palpitations Respiratory: No reports of shortness of breath or cough GI: No reports of nausea, vomiting, or diarrhea : No reports of dysuria or retention Neurovascular: No reports of weakness or numbness All medications have been reviewed Active Medications Acetaminophen (Acetaminophen Tab 325 Mg Tab) 650 mg PO Q6HR PRN PRN Reason: Mild Pain or Fever > 100.5 Last Admin: 03/29/21 19:53 Dose: 650 mg Documented by: Ferrous Sulfate (Ferrous Sulfate 325 Mg Tab) 325 mg PO DAILY [facility] Last Admin: 03/30/21 08:16 Dose: 325 mg Documented by: Heparin Sodium (Porcine) (Heparin Sodium,Porcine/Pf 5,000 Unit/0.5 Ml Syringe) 5,000 unit SQ Q12HR [facility] Last Admin: 03/30/21 08:17 Dose: 5,000 unit Documented by: Sodium Chloride (Saline 0.9%) 1,000 mls @ 75 mls/hr IV .[id number] [facility] Last Admin: 03/29/21 22:04 Dose: 75 mls/hr Documented by: Ceftriaxone Sodium 2 gm/ (Sodium Chloride) 50 mls @ 100 mls/hr IVPB Q12HR [facility] Last Admin: 03/30/21 08:16 Dose: 100 mls/hr Documented by: Latanoprost (Latanoprost 0.005% Ophth Drops 2.5 Ml Btl) 1 drops LEFT EYE HS [facility] Last Admin: 03/29/21 22:03 Dose: 1 drops Documented by: Levothyroxine Sodium (Levothyroxine 75 Mcg Tab) 75 mcg PO DAILY@0630 [facility] Last Admin: 03/30/21 06:03 Dose: 75 mcg Documented by: Miscellaneous Information (Potassium Replacement Protocol 1 Each Misc) 1 each MISCELLANE DAILY PRN; Protocol PRN Reason: Per Protocol Naloxone HCl (Naloxone 0.4 Mg/Ml 1 Ml Vial) 0.2 mg IV Q2M PRN PRN Reason: Opioid Reversal Pantoprazole Sodium (Pantoprazole 40 Mg Tablet) 40 mg PO AC-BRKFST [facility] Last Admin: 03/30/21 08:16 Dose: 40 mg Documented by: Timolol Maleate (Timolol 0.5% Ophth Drops 5 Ml Btl) 1 drops BOTH EYES BID [facility] Last Admin: 03/30/21 08:17 Dose: 1 drops Documented by: Physical exam: Gen: This is a 75-year-old female awake, alert and oriented 2-3, thin built, ill-appearing HEENT: Head is atraumatic, normocephalic. Pupils equal, round. Sclerae is anic teric. NECK: Supple. No JVD. No lymphadenopathy. No thyromegaly. LUNGS: Clear to auscultation. No wheezes or rhonchi. No intercostal retractions. HEART: Regular rate and rhythm. No murmur. ABDOMEN: Soft. Bowel sounds are present. No masses. No tenderness. EXTREMITIES: No pedal edema. No calf tenderness. NEUROLOGICAL: Patient is awake, alert and oriented x2-3. Diffusely weak. Assessment and plan: Sepsis, present on admission possibly secondary to acute urinary tract infection with associated fevers Possible acute urinary tract infection, present on admission Hypovolemic hyponatremia, improving Natriuretic hypokalemia Microcytic anemia with possible iron deficiency anemia will order ferritin labs, per sister patient was to follow with Dr. Reyes hematology in the outpatient setting for further SANDEEP workup, continue ferrous sulfate Mild toxic encephalopathy secondary to acute urinary tract infection Weakness with frequent falls Gait dysfunction Legally blind in bilateral eyes Hypothyroidism History of hypoglycemia Workup in progress in the outpatient setting for iron deficiency anemia GI prophylaxis DVT prophylaxis No code Plan: Patient will continue on IV ceftriaxone while awaiting for cultures to finalized. Preliminary showing gram-negative bacilli and infectious disease is following. Patient has been afebrile today. She was seen and evaluated by PT/OT therapy recommending subacute rehab although patient is refusing, and is agreeable to home care and case management following arranging for [facility]. Will Replace electrolytes per protocol as repeat potassium today was 3.3. Encouraged oral intake. Possible discharge in 24 hours. Objective - Vital Signs Vital signs: Vital Signs Temp 98.6 F 03/30/21 07:25 Pulse 87 03/30/21 07:25 Resp 16 03/30/21 07:25 BP 109/54 03/30/21 07:25 Pulse Ox 96 03/30/21 07:25 Intake & Output 03/29/21 03/30/21 03/30/21 18:59 06:59 18:59 Intake Total 1220 Balance 1220 Weight 70.307 kg Intake: Intake, IV Titration 100 Amount cefTRIAXone 1 gm In 50 Sodium Chloride 0.9% 50 ml @ 100 mls/hr IVPB ONCE STA Rx#:[id number] cefTRIAXone 2 gm In 50 Sodium Chloride 0.9% 50 ml @ 100 mls/hr IVPB Q12HR [facility] Rx#:[id number] Other 1120 Other: Voiding Method Bedpan Bedpan # Voids 10 6 - Labs CBC & Chem 7: 03/30/21 08:43 03/30/21 08:43 Labs: Abnormal Lab Results - Last 24 Hours (Table) 03/29/21 Range/Units 06:28 WBC 3.97 L (4.50-10.00) X 10*3/uL RBC 3.79 L (4.10-5.20) X 10*6/uL Hgb 8.3 L (12.0-15.0) g/dL Hct 28.6 L (37.2-46.3) % MCV 75.5 L (80.0-97.0) fL MCH 21.9 L (27.0-32.0) pg MCHC 29.0 L (32.0-37.0) g/dL RDW 16.4 H (11.5-14.5) % MPV 8.6 L (9.5-12.2) fL Lymphocytes # 0.35 L (0.90-5.00) X 10*3/uL Eosinophils # 0 L (0.04-0.35) X 10*3/uL Microbiology - Last 24 Hours (Table) 03/28/21 17:48 Urine Culture - Preliminary Urine,Voided Gram Neg Bacilli 03/28/21 17:35 Blood Culture - Preliminary Blood No Growth after 24 hours 03/28/21 17:50 Blood Culture - Preliminary Blood No Growth after 24 hours
--- NOTE | 2021-03-30 17:01 | PN ---
PROGRESS NOTE DATE OF SERVICE: 03/30/2021 REASON FOR FOLLOWUP: Urinary tract infection. INTERVAL HISTORY: The patient is afebrile. The patient is currently breathing comfortably. Denies having any chest pain, shortness of breath or cough. No nausea. No vomiting. No abdominal pain or diarrhea. PHYSICAL EXAMINATION: Blood pressure 113/67 with a pulse of 102, temperature 98.3. She is 99% on room air. GENERAL DESCRIPTION: General description is an elderly female lying in bed in no distress. RESPIRATORY SYSTEM: Unlabored breathing. Clear to auscultation anteriorly. HEART: S1, S2. Regular rate and rhythm. ABDOMEN: Soft. No tenderness. LABS: Hemoglobin is 9.3, white count 5.9, BUN of 11, creatinine 0.39. Urine showing Gram- negative. Blood culture has been negative so far. DIAGNOSTIC IMPRESSION AND PLAN: Patient with a Gram-negative urinary tract infection, covered with Rocephin. To continue, adjusting antibiotic further based on the culture reports. Continue supportive care. MMODL / IJN: [id number] /
[2021-03-30] MEDS: SODIUM CHLORIDE 0.9% 1,000 ML IV SCH (20:29)
[2021-03-30] MEDS: LATANOPROST 0.005% OPHTH DROPS 2.5 ML BTL LEFT EYE SCH (20:33)
[2021-03-31] MEDS: LEVOTHYROXINE 75 MCG TAB PO SCH (05:36)
[2021-03-31] MEDS: HEPARIN SODIUM,PORCINE/PF 5,000 UNIT/0.5 ML SYRINGE SQ SCH ×2 (07:09→07:12)
[2021-03-31] MEDS: PANTOPRAZOLE 40 MG TABLET PO SCH (07:09)
[2021-03-31] MEDS: POTASSIUM CHLORIDE ER 20 MEQ TAB.ER PO SCH ×2 (07:09→07:53)
[2021-03-31] MEDS: FERROUS SULFATE 325 MG TAB PO SCH (07:09)
[2021-03-31] MEDS: TIMOLOL 0.5% OPHTH DROPS 5 ML BTL BOTH EYES SCH (07:10)
[2021-03-31] MEDS: SODIUM CHLORIDE 0.9% 1,000 ML IV SCH (07:11)
[2021-03-31 08:17] VITALS: BP 108/70; PULSE 83; RESP 14; TEMP 98.5
[2021-03-31] MEDS ORDERED: POTASSIUM CHLORIDE ER 20 MEQ TAB.ER PO STA (11:34)
--- NOTE | 2021-03-31 20:36 | P.PN ---
Progress Note - Text Progress Note Date: 03/31/21 REASON FOR FOLLOWUP: Urinary tract infection. INTERVAL HISTORY: The patient remains to be afebrile. The patient is breathing comfortably. Denies having any chest pain, shortness of breath or cough. No nausea. No vomiting. No abdominal pain or diarrhea. PHYSICAL EXAMINATION: Blood pressure 110/60 with a pulse of 82, temperature 98.3. She is 99% on room air. GENERAL DESCRIPTION: General description is an elderly female lying in bed in no distress. RESPIRATORY SYSTEM: Unlabored breathing. Clear to auscultation anteriorly. HEART: S1, S2. Regular rate and rhythm. ABDOMEN: Soft. No tenderness. LABS: Urine showing E.coli ,Blood culture has been negative so far. DIAGNOSTIC IMPRESSION AND PLAN: Patient with a Gram-negative urinary tract infection, clinically improved with Rocephin. To finish therapy with oral ceftin 500mg bid x 7 days
--- NOTE | 2021-04-02 00:57 | P.DS ---
Providers Date of admission: 03/28/21 20:26 Expected date of discharge: 03/31/21 Attending physician: Osiris Mandel Consults: 03/28/21 20:26 Consult Physician Routine Consulting Provider: Stevenson Suazo Consult Reason/Comments: fever, sepsis Do you want consulting provider notified?: Yes Primary care physician: Richie Cevallos [facility] Course: Final Diagnosis Sepsis, present on admission possibly secondary to acute urinary tract infection with associated fevers Possible acute urinary tract infection, present on admission Hypovolemic hyponatremia, improving Natriuretic hypokalemia Microcytic anemia with possible iron deficiency anemia, to follow with Dr. 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 Patient will follow-up with Dr. Quiroz in the outpatient setting upon discharge. Patient will continue on ceftin 500mg twice daily for 5 days to complete the course. Total time taken is greater than 35 minutes. Hospital course This is a 75-year-old female who was brought to the emergency room having frequent falls at home with fever. Patient does have a past medical history of being legally blind in both eyes, thyroid disorder, ocular degeneration, glaucoma, cataracts and hypothyroidism. Patient does live with her sister at the home and has been having more frequent falls and unsteady gait lately. Patient does have a walker in the home but does not use it. Patient denied any fevers in the home but upon arrival to the emergency room was found to have a fever of 102.2 and mildly tachycardic at 116. Patient being admitted for acute urinary tract infection with sepsis present on admission, frequent falls. Patient being started on IV antibiotics in the form of Rocephin and infectious disease consulted. Sodium was also found to be low at 1:30 with a potassium of 3.4 and current creatinine was 0.47. Patient appears to have iron deficiency anemia and after talking with sister she was to follow with hematology Dr. Reyes for an appointment today for further workup. Patient has been taking ferrous sulfate in the outpatient setting. She denies any chest pain, shortness of virgie th, or palpitations. Patient denies any nausea or vomiting or abdominal pain. Chest x-ray on admission shows no acute active cardiopulmonary disease with no heart failure and lungs are clear of infiltrate. EKG showed sinus tachycardia. 03/31/2021 Patient is seen in follow-up with no acute overnight issues noted. Patient urine culture finalized showing ecoli and will continue with ceftin 500 mg twice daily for 5 days to complete the course. Patient instructed to eat a potassium rich diet and recommend repeat labs in 2-3 days to monitor potassium. Patient adament about going home although PT recommending [facility] for continued PT therapy. Sister is caregiver and agreeable to take patient home and will be having home care in the home. Currently no reports of chest pain, shortness of breath, or palpitations. Patient is afebrile. No reports of nausea or vomiting and patient is tolerating diet. Patient will be discharged home with [facility]. On exam vital signs are stable. Cardio S1, S2 are muffled. Respiratory system shows diminished breath sounds at the bases with no wheezing or rhonchi noted. Abdomen is soft and nontender. Nervous system shows no focal deficits. Please refer to medication reconciliation sheet for a list of medications. Patient Condition at Discharge: Stable Plan - Discharge Summary Discharge Rx Participant: Yes New Discharge Prescriptions: New Cefuroxime Axetil [Ceftin] 500 mg PO BID 5 Days #10 tab Potassium Chloride [K-Tab ER] 10 meq PO DAILY 30 Days #30 tab Continue Levothyroxine Sodium [Synthroid] 75 mcg PO DAILY Latanoprost/Pf [Latanoprost 0.005% Eye Drop] 1 drop LEFT EYE HS Ferrous Sulfate [Iron (65 MG Elemental)] 325 mg PO DAILY Timolol 0.5% Ophth Soln [Timoptic 0.5% Ophth Soln] 1 drop BOTH EYES BID Discharge Medication List Latanoprost/Pf [Latanoprost 0.005% Eye Drop] 1 drop LEFT EYE HS 12/03/18 [History] Levothyroxine Sodium [Synthroid] 75 mcg PO DAILY 12/03/18 [History] Ferrous Sulfate [Iron (65 MG Elemental)] 325 mg PO DAILY 07/25/19 [History] Timolol 0.5% Ophth Soln [Timoptic 0.5% Ophth Soln] 1 drop BOTH EYES BID 03/28/21 [History] Cefuroxime Axetil [Ceftin] 500 mg PO BID 5 Days #10 tab 03/31/21 [Rx] Potassium Chloride [K-Tab ER] 10 meq PO DAILY 30 Days #30 tab 03/31/21 [Rx] Follow up [facility]ment(s[facility]Ref[facility] - As Needed Batsheva Quiroz MD [Primary Care Provider] - 1-2 days (Patient to make at home) Ambulatory/Diagnostic Orders: Basic Metabolic Panel [LAB.AMB] Time Frame: 3 Days, Location: None Selected Patient Instructions/Handouts: Urinary Tract Infection in Older Adults (DC) Activity/Diet/Wound Care/Special Instructions: Activity Limited until follow-up Follow-up with primary care provider on discharge Continue with medications as prescribed Continue with antibiotics for 5 days until finished Continue with potassium rich diet including one banana per day Repeat labs in 2-3 days to monitor potassium level and sodium level Continue with home care Follow-up with hematology in the outpatient setting for iron deficiency anemia Discharge Disposition: HOME WITH HOME HEALTH SERVICES
--- NOTE | 2021-04-04 06:58 | CDI ---
Documentation Clarification Form Date: 04/04/21 From: Khushi Ludwig Admit Date: 03/28/2021 08:26:00 PM Patient Name: Faye Gardner Visit Number: [id number] Discharge Date: 03/31/2021 01:39:00 PM ATTENTION: The Clinical Documentation Specialists (CDI) and [facility] Coding Staff appreciate your assistance in clarifying documentation. Please respond to the clarification below the line at the bottom and electronically sign. The CDI & [facility] Coding staff will review the response and follow-up if needed. Please note: Queries are made part of the Legal Health Record. If you have any questions, please contact the author of this message via ITS. Dr. Mhain Sánchez, The Registered Dietitian assessment on 03/29 indicates this patient meets criteria for malnutrition chronic, severe. Based on this information and the findings below, is there an additional diagnosis that is clinically appropriate for this patient? History/Risk Factors: E coli sepsis w UTI, toxic encephalopathy, hyponatremia, iron def anemia, hypothyrodism, liver disease, skin disorder Clinical Indicators: Total Protein: 6.0, 5.0 Albumin: 2.9, 2.2 RD Consult Assessment: Malnutrition chronic, severe Current BMI: 22.9 Insufficient energy intake: Weight Loss: decreased appetite, nausea and vomiting, consuming <75% of nutritional needs > 1 month, 20% wt loss over 1 year Treatment: Heart Healthy diet Supplements: Magic cup BID, refused ensure Is there an additional diagnosis that is clinically appropriate for this patient? [ x] Mild Protein-Calorie Malnutrition [ ] Moderate Protein-Calorie Malnutrition [ ] Severe Protein-Calorie Malnutrition [ ] Other condition, please specify [ ] Unable to Determine MTDD
== END 2021-03-31 13:39 | disposition home health service (06) | DRG 871 ==
LOC: EC 17:24 → 4SSUR 20:26
PROVIDERS: ADMIT Hospitalist; ATTEND Hospitalist
DX: A41.51 Sepsis due to Escherichia coli [E. coli] (principal); G92 Toxic encephalopathy; N39.0 Urinary tract infection, site not specified; E87.1 Hypo-osmolality and hyponatremia; E44.1 Mild protein-calorie malnutrition; Z20.822 Contact with and (suspected) exposure to COVID-19; E86.1 Hypovolemia; E87.6 Hypokalemia; D50.9 Iron deficiency anemia, unspecified; E03.9 Hypothyroidism, unspecified; H40.9 Unspecified glaucoma; H35.30 Unspecified macular degeneration; H26.9 Unspecified cataract; K76.9 Liver disease, unspecified; L98.9 Disorder of the skin and subcutaneous tissue, unspecified; R29.6 Repeated falls; R26.9 Unspecified abnormalities of gait and mobility; Z79.890 Hormone replacement therapy; H54.8 Legal blindness, as defined in USA; Z91.81 History of falling; Z86.19 Personal history of other infectious and parasitic diseases; Z90.49 Acquired absence of other specified parts of digestive tract; Z87.19 Personal history of other diseases of the digestive system; Z90.711 Acquired absence of uterus with remaining cervical stump; Z87.42 Personal history of other diseases of the female genital tract; Z98.890 Other specified postprocedural states; Z88.5 Allergy status to narcotic agent; Z83.518 Family history of other specified eye disorder; Z83.2 Family history of diseases of the blood and blood-forming organs and certain disorders involving the immune mechanism; Z68.22 Body mass index [BMI] 22.0-22.9, adult
CPT/HCPCS: 36415; 71046; 80048; 80053; 81001; 82550; 82728; 83605; 84132; 84484; 85025; 85610; 85730; 87040; 87077; 87086; 87186; 87324; 87502; 87635; 93005; 94760; 99285

== ENCOUNTER 2021-05-06 02:55 | Emergency (ER) | payer MEDICARE, BC ==
--- NOTE | 2021-05-06 03:42 | ED ---
Fall HPI - General Chief Complaint: Fall Stated Complaint: Fall Time Seen by Provider: 05/06/21 02:56 Source: EMS, RN notes reviewed, old records reviewed Mode of arrival: ambulatory - History of Present Illness Initial Comments: This is a 75-year-old female DF status post fall fall with unsure possible head injury some back pain. Patient has no loss of consciousness no blood thinners. No travel history or sick contacts or recent fever cough or congestion or headache chest pain shortness breath or abdominal pain MD Complaint: fall -: hour(s) Fall From: standing, chair Fall Witnessed: yes, by family Place Fall Occurred: home Loss of Consciousness: none Prolonged Down Time?: no Symptoms Prior to Fall: none Location: head Severity: moderate Severity scale (1-10): 4 Quality: sharp Context: tripped/slipped Associated Symptoms: denies, headache - Related Data Home Medications Medication Instructions Recorded Confirmed Latanoprost/Pf [Latanoprost 0.005% 1 drop LEFT EYE HS 12/03/18 05/21/21 Eye Drop] Levothyroxine Sodium [Synthroid] 75 mcg PO DAILY 12/03/18 05/21/21 Timolol 0.5% Ophth Soln [Timoptic 1 drop LEFT EYE DAILY 03/28/21 05/21/21 0.5% Ophth Soln] Allergies Allergy/AdvReac Type Severity Reaction Status Date / Time codeine Allergy Itching Verified 05/21/21 18:53 Review of Systems ROS Statement: Those systems with pertinent positive or pertinent negative responses have been documented in the HPI. ROS Other: All systems not noted in ROS Statement are negative. Past Medical History Past Medical History: Eye Disorder, Skin Disorder, Thyroid Disorder Additional Past Medical History / Comment(s): hypoglycemia, macular degeneration, glaucoma, cataracts,. Legally BLIND both eyes, Hep B 40 years ago. 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, recent soft tissue core biopsy History of Any Multi-Drug Resistant Organisms: None Reported Past Surgical History: Appendectomy, Cholecystectomy, Hysterectomy Additional Past Surgical History / Comment(s): partial hysterectomy, skin growths "burned off" Past Anesthesia/Blood Transfusion Reactions: No Reported Reaction Past Psychological History: No Psychological Hx Reported Smoking Status: Never smoker Past Alcohol Use History: None Reported Past Drug Use History: None Reported - Past Family History Mother Additional Family Medical History / Comment(s): macualr degeneration, cataracts, thyroid Father Family Medical History: Pulmonary Embolus General Exam General appearance: alert, in no apparent distress Head exam: Present: atraumatic, normocephalic, normal inspection Eye exam: Present: normal appearance, PERRL, EOMI. Absent: scleral icterus, conjunctival injection, periorbital swelling ENT exam: Present: normal exam, mucous membranes moist Neck exam: Present: normal inspection. Absent: tenderness, meningismus, lymphadenopathy Respiratory exam: Present: normal lung sounds bilaterally. Absent: respiratory distress, wheezes, rales, rhonchi, stridor Cardiovascular Exam: Present: regular rate, normal rhythm, normal heart sounds. Absent: systolic murmur, diastolic murmur, rubs, gallop, clicks GI/Abdominal exam: Present: soft, normal bowel sounds. Absent: distended, tenderness, guarding, rebound, rigid Extremities exam: Present: normal inspection, full ROM, normal capillary refill. Absent: tenderness, pedal edema, joint swelling, calf tenderness Back exam: Present: normal inspection Neurological exam: Present: alert, oriented X3, CN II-XII intact Psychiatric exam: Present: normal affect, normal mood Skin exam: Present: warm, dry, intact, normal color. Absent: rash Course Vital Signs 05/06/21 05/06/21 04:55 06:37 Temperature 98 F Pulse Rate 99 99 Respiratory 18 18 Rate Blood Pressure 113/70 113/70 O2 Sat by Pulse 99 99 Oximetry - Reevaluation(s) Reevaluation #1: Medical record is reviewed Patient symptoms are improved here in the ER and remained improved Patient informed results and questions answered Medical Decision Making - Medical Decision Making 75 female to the emergency department status post fall fall out of bed no triadic injury is noted and patient can be discharged home - Radiology Data Radiology results: report reviewed (CT brain C-spine chest and pelvis x-ray negative for traumatic injury), image reviewed Disposition Clinical Impression: Fall Disposition: HOME SELF-CARE Condition: Good Instructions (If sedation given, give patient instructions): Fall Prevention for Older Adults (ED) Is patient prescribed a controlled substance at d/c from ED?: No Referrals: Batsheva Quiroz MD [Primary Care Provider] - 1-2 days
--- NOTE | 2021-05-06 04:29 | CT ---
EXAMINATION TYPE: CT brain tomer wo con DATE OF EXAM: 05/06/2021 COMPARISON: 04/21/2020 HISTORY: fall CT DLP: 1365.6 mGycm Automated exposure control for dose reduction was used. There is patchy hypodensity in the periventricular white matter. There is no mass effect nor midline shift. There is no sign of intracranial hemorrhage. Calvarium is intact. There is normal aeration of the mastoid sinuses. Cervical vertebra have normal alignment. There is mild disc space narrowing throughout the cervical s pine. There is no compression fracture. Facet joints are intact. There is mild degenerative spurring in the lower cervical spine. Prevertebral soft tissues are intact. IMPRESSION: Mild multilevel cervical spondylotic changes. No fracture. Cerebral atrophy and chronic small vessel ischemia. No acute intracranial abnormality. White matter d isease appears worse than last CT scan.
--- NOTE | 2021-05-06 04:38 | XR ---
EXAMINATION TYPE: XR Hip RT and AP Pelvis DATE OF EXAM: 05/06/2021 COMPARISON: NONE HISTORY: Fall. Right hip pain TECHNIQUE: 3 views FINDINGS: Pelvic ring appears intact. Proximal right femur and hip joint appear intact. I see no frac ture. Sacroiliac joints appear intact. IMPRESSION: Negative pelvis and right hip exam.
[2021-05-06 04:56] VITALS: BP 113/70; PULSE 99; RESP 18
[2021-05-06 06:40] VITALS: TEMP 98
== END 2021-05-06 06:40 | disposition home or self-care (01) ==
LOC: EC 02:55
DX: M54.9 Dorsalgia, unspecified (principal); Z79.890 Hormone replacement therapy; W06.XXXA Fall from bed, initial encounter; Y92.009 Unspecified place in unspecified non-institutional (private) residence as the place of occurrence of the external cause
CPT/HCPCS: 70450; 72125; 73502; 99284

== ENCOUNTER 2021-05-21 16:29 | Inpatient (IN) | payer MEDICARE, BC ==
--- NOTE | 2021-05-21 17:12 | ED ---
General Adult HPI - General Chief complaint: Urogenital Stated complaint: Weakness, urogenital Time Seen by Provider: 05/21/21 16:36 Source: patient, EMS, old records reviewed Mode of arrival: EMS Limitations: physical limitation - History of Present Illness Initial comments: Dictation was produced using [employer] dictation software. please excuse any grammatical, word or spelling errors. Chief Complaint: 75-year-old female presents to the emergency Department for urinary symptoms. History of Present Illness: 75-year-old female presents to the emergency Department for urinary symptoms. Patient states she's had dysuria for the last 24 hours. She called EMS who told her that she had a distended bladder. Patient was not able to urinate for the last 12 hours. Does not have a history of urinary Retention. She's never had a Fraser catheter placed. She denies any back pain. Patient has a history of blindness thyroid disorder macular degeneration. The ROS documented in this emergency department record has been reviewed and confirmed by me. Those systems with pertinent positive or negative responses have been documented in the HPI. All other systems are other negative and/or noncontributory. PHYSICAL EXAM: General Impression: Alert and oriented x3, not in acute distress HEENT: Normocephalic atraumatic, extra-ocular movements intact, pupils equal and reactive to light bilaterally, mucous membranes moist. Cardiovascular: Heart regular rate and rhythm Chest: Able to complete full sentences, no retractions, no tachypnea Abdomen: abdomen soft, slight tenderness in the superpubic area, non-distended, no organomegaly Musculoskeletal: Pulses present and equal in all extremities, no peripheral edema Motor: no focal deficits noted Neurological: CN II-XII grossly intact, no focal motor or sensory deficits noted Skin: Intact with no visualized rashes Psych: Normal affect and mood ED course: 75-year-old female presents emergency department for urinary symptoms. Patient reports that she has not urinated several hours. She does have physical exam symptoms concerning for urinary retention. Vital signs upon arrival shows him for 99.1, rest of vital signs within acceptable limits. Bladder scan shows 23 mL of urine. Chart review shows that patient has history of strange bladder tissue seen on recent pelvis CT. The bedside reports that they were informed that her CT was normal.Laboratory obtained. Patient is leukocytosis of 17.8. Rest of CBC within acceptable limits. Metabolic panel shows sodium 125. Rest metabolic panel is within acceptable limits. Patient is very weak according to sister. She does not have a good disposition because sisters having trouble taking care of patient at home. Patient will be admitted for treatment of UTI, further medical monitoring and social work/case management evaluation. - Related Data Home Medications Medication Instructions Recorded Confirmed Latanoprost/Pf [Latanoprost 0.005% 1 drop LEFT EYE HS 12/03/18 05/21/21 Eye Drop] Levothyroxine Sodium [Synthroid] 75 mcg PO DAILY 12/03/18 05/21/21 Timolol 0.5% Ophth Soln [Timoptic 1 drop LEFT EYE DAILY 03/28/21 05/21/21 0.5% Ophth Soln] Allergies Allergy/AdvReac Type Severity Reaction Status Date / Time codeine Allergy Itching Verified 05/21/21 18:53 Review of Systems ROS Statement: Those systems with pertinent positive or pertinent negative responses have been documented in the HPI. ROS Other: All systems not noted in ROS Statement are negative. Past Medical History Past Medical History: Eye Disorder, Skin Disorder, Thyroid Disorder Additional Past Medical History / Comment(s): hypoglycemia, macular degeneration, glaucoma, cataracts,. Legally BLIND both eyes, Hep B 40 years ago. 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, recent soft tissue core biopsy History of Any Multi-Drug Resistant Organisms: None Reported Past Surgical History: Appendectomy, Cholecystectomy, Hysterectomy Additional Past Surgical History / Comment(s): partial hysterectomy, skin growths "burned off" Past Anesthesia/Blood Transfusion Reactions: No Reported Reaction Past Psychological History: No Psychological Hx Reported Smoking Status: Never smoker Past Alcohol Use History: None Reported Past Drug Use History: None Reported - Past Family History Mother Additional Family Medical History / Comment(s): macualr degeneration, cataracts, thyroid Father Family Medical History: Pulmonary Embolus General Exam Limitations: physical limitation Course Vital Signs 05/21/21 05/21/21 05/22/21 16:31 19:42 00:57 Temperature 99.1 F Pulse Rate 84 84 103 H Respiratory 15 18 18 Rate Blood Pressure 137/105 130/80 133/85 O2 Sat by Pulse 97 97 99 Oximetry 05/22/21 05/22/21 05/22/21 03:47 05:51 13:54 Temperature 98.9 F 97.9 F Pulse Rate 102 H 100 119 H Respiratory 18 16 16 Rate Blood Pressure 126/62 130/68 106/64 O2 Sat by Pulse 96 98 97 Oximetry Medical Decision Making - Lab Data Result diagrams: 05/24/21 06:39 05/24/21 06:39 Lab Results 05/21/21 05/21/21 05/21/21 Range/Units 18:50 20:40 20:40 WBC 17.8 H (3.8-10.6) k/uL RBC 4.60 (3.80-5.40) m/uL Hgb 10.2 L (11.4-16.0) gm/dL Hct 33.5 L (34.0-46.0) % MCV 72.8 L (80.0-100.0) fL MCH 22.2 L (25.0-35.0) pg MCHC 30.5 L (31.0-37.0) g/dL RDW 18.2 H (11.5-15.5) % Plt Count 326 (150-450) k/uL Plt Count Comment MPV 6.5 Immature Gran % (Auto) % Absolute Nucleated RBC (0.00-0.00) X 10*3/uL Neutrophils % 91 % Lymphocytes % 5 % Monocytes % 4 % Eosinophils % 0 % Basophils % 0 % Immature Gran # (0.00-0.04) X 10*3/uL Neutrophils # 16.1 H (1.3-7.7) k/uL Lymphocytes # 0.9 L (1.0-4.8) k/uL Monocytes # 0.7 (0-1.0) k/uL Eosinophils # 0.0 (0-0.7) k/uL Basophils # 0.0 (0-0.2) k/uL NRBC/100 WBC Diff (0.0-0.0) /100 WBCS Hypochromasia Moderate Anisocytosis Slight Anisocytosis (manual) Microcytosis Moderate Microcytosis (manual) Sodium 125 L (137-145) mmol/L Potassium 4.1 (3.5-5.1) mmol/L Chloride 97 L (98-107) mmol/L Carbon Dioxide 21 L (22-30) mmol/L Anion Gap 7 mmol/L BUN 33 H (7-17) mg/dL Creatinine 0.36 L (0.52-1.04) mg/dL Est GFR (CKD-EPI)AfAm >90 (>60 ml/min/1.73 sqM) Est GFR (CKD-EPI)NonAf >90 (>60 ml/min/1.73 sqM) BUN/Creatinine Ratio (12.00-20.00) Ratio Glucose 109 H (74-99) mg/dL Calcium 8.2 L (8.4-10.2) mg/dL Iron (50-170) ug/dL TIBC (228-460) ug/dL % Saturation (12.00-45.00) Transferrin (204.0-354.0) mg/dL Total Bilirubin (0.30-1.20) mg/dL AST (13-35) U/L ALT (8-44) U/L Alkaline Phosphatase (41-126) U/L Total Protein (6.2-8.2) g/dL Albumin (3.8-4.9) g/dL Globulin (1.6-3.3) g/dL Albumin/Globulin Ratio (1.60-3.17) g/dL Urine Color Dark Brown Urine Appearance Turbid H (Clear) Urine pH 6.5 (5.0-8.0) Ur Specific [place] 1.026 (1.001-1.035) Urine Protein 3+ H (Negative) Urine Glucose (UA) Negative (Negative) Urine Ketones 1+ H (Negative) Urine Blood Large H (Negative) Urine Nitrite Negative (Negative) Urine Bilirubin 1+ H (Negative) Urine Urobilinogen 12.0 (<2.0) mg/dL Ur Leukocyte Esterase Large H (Negative) Urine RBC 98 H (0-5) /hpf Urine WBC >182 H (0-5) /hpf Urine WBC Clumps Many H (None) /hpf Urine Bacteria Many H (None) /hpf Urine Mucus Many H (None) /hpf Coronavirus (PCR) (Not Detectd) 05/21/21 05/23/21 05/23/21 Range/Units 23:12 06:13 06:13 WBC 13.17 H (3.8-10.6) k/uL RBC 4.43 (3.80-5.40) m/uL Hgb 9.3 L (11.4-16.0) gm/dL Hct 32.1 L (34.0-46.0) % MCV 72.5 L (80.0-100.0) fL MCH 21.0 L (25.0-35.0) pg MCHC 29.0 L (31.0-37.0) g/dL RDW 20.7 H (11.5-15.5) % Plt Count 263 (150-450) k/uL Plt Count Comment Adequate MPV 8.5 L Immature Gran % (Auto) 0.7 % Absolute Nucleated RBC 0 (0.00-0.00) X 10*3/uL Neutrophils % 86.6 % Lymphocytes % 6.5 % Monocytes % 5.8 % Eosinophils % 0.1 % Basophils % 0.3 % Immature Gran # 0.09 H (0.00-0.04) X 10*3/uL Neutrophils # 11.41 H (1.3-7.7) k/uL Lymphocytes # 0.85 L (1.0-4.8) k/uL Monocytes # 0.77 (0-1.0) k/uL Eosinophils # 0.01 L (0-0.7) k/uL Basophils # 0.04 (0-0.2) k/uL NRBC/100 WBC Diff 0 (0.0-0.0) /100 WBCS Hypochromasia Anisocytosis Anisocytosis (manual) 2+ Microcytosis Microcytosis (manual) 2+ Sodium 130 L (137-145) mmol/L Potassium 4.2 (3.5-5.1) mmol/L Chloride 97 (98-107) mmol/L Carbon Dioxide 21.3 L (22-30) mmol/L Anion Gap 11.70 mmol/L BUN 25.6 (7-17) mg/dL Creatinine 0.3 L (0.52-1.04) mg/dL Est GFR (CKD-EPI)AfAm 129.0 (>60 ml/min/1.73 sqM) Est GFR (CKD-EPI)NonAf 111.3 (>60 ml/min/1.73 sqM) BUN/Creatinine Ratio 80.25 H (12.00-20.00) Ratio Glucose 81 (74-99) mg/dL Calcium 8.1 L (8.4-10.2) mg/dL Iron 12 L (50-170) ug/dL TIBC 168 L (228-460) ug/dL % Saturation 7.08 L (12.00-45.00) Transferrin 120.0 L (204.0-354.0) mg/dL Total Bilirubin 0.40 (0.30-1.20) mg/dL AST 15 (13-35) U/L ALT 7 L (8-44) U/L Alkaline Phosphatase 99 (41-126) U/L Total Protein 4.5 L (6.2-8.2) g/dL Albumin 1.8 L (3.8-4.9) g/dL Globulin 2.7 (1.6-3.3) g/dL Albumin/Globulin Ratio 0.68 L (1.60-3.17) g/dL Urine Color Urine Appearance (Clear) Urine pH (5.0-8.0) Ur Specific [place] (1.001-1.035) Urine Protein (Negative) Urine Glucose (UA) (Negative) Urine Ketones (Negative) Urine Blood (Negative) Urine Nitrite (Negative) Urine Bilirubin (Negative) Urine Urobilinogen (<2.0) mg/dL Ur Leukocyte Esterase (Negative) Urine RBC (0-5) /hpf Urine WBC (0-5) /hpf Urine WBC Clumps (None) /hpf Urine Bacteria (None) /hpf Urine Mucus (None) /hpf Coronavirus (PCR) Not Detected (Not Detectd) Disposition Clinical Impression: UTI (urinary tract infection), Weakness Disposition: ADMITTED IP TO THIS [facility] Condition: Good
[2021-05-21] MEDS ORDERED: SODIUM CHLORIDE 0.9% 1,000 ML IV STA (17:14)
[2021-05-21 19:03] LABS: Appearance,Urine Turbid (Clear); Bacteria,Urine Many /hpf; Bilirubin,Urine 1+ (Negative); Blood,Urine Large (Negative); Color,Urine Dark Brown; Glucose,Urine (UA) Negative (Negative); Ketones,Urine 1+ (Negative); Leukocyte Esterase,Urine Large (Negative); Mucus,Urine Many /hpf; Nitrite,Urine Negative (Negative); PH, Urine 6.5 (5.0-8.0); Protein,Urine 3+ (Negative); RBC,Urine 98 /hpf (0-5); Specific Gravity,Urine 1.026 (1.001-1.035); WBC,Urine >182 /hpf (0-5)
[2021-05-21] MEDS ORDERED: cefTRIAXone IN SWFI 1,000 MG/10 ML SYRINGE IVP STA (19:40)
[2021-05-21] MEDS ORDERED: NALOXONE 0.4 MG/ML 1 ML VIAL IV PRN (20:09)
[2021-05-21 20:55] LABS: Anisocytosis Slight; Basophils % (A) 0 %; Eosinophils % (A) 0 %; HCT 33.5 % (34.0-46.0); HGB 10.2 gm/dL (11.4-16.0); Hypochromasia Moderate; Lymphocytes # (A) 0.9 k/uL (1.0-4.8); Lymphocytes % (A) 5 %; MCH 22.2 pg (25.0-35.0); MCHC 30.5 g/dL (31.0-37.0); MCV 72.8 fL (80.0-100.0); Mean Platelet Volume 6.5; Microcytosis Moderate; Monocytes # (A) 0.7 k/uL (0-1.0); Monocytes % (A) 4 %; Neutrophils # (A) 16.1 k/uL (1.3-7.7); Neutrophils % (A) 91 %; Platelet Count 326 k/uL (150-450); RDW 18.2 % (11.5-15.5); WBC 17.8 k/uL (3.8-10.6)
[2021-05-21] MEDS: SODIUM CHLORIDE 0.9% 1,000 ML IV SCH (21:00)
[2021-05-21 21:09] LABS: African American GFR (CKD) >90 (>60 ml/min/1.73 sqM); Anion Gap 7 mmol/L; Blood Urea Nitrogen 33 mg/dL (7-17); Calcium 8.2 mg/dL (8.4-10.2); Carbon Dioxide 21 mmol/L (22-30); Chloride 97 mmol/L (98-107); Glucose 109 mg/dL (74-99); Non-African American GFR(CKD) >90 (>60 ml/min/1.73 sqM); Potassium 4.1 mmol/L (3.5-5.1); Sodium 125 mmol/L (137-145)
[2021-05-22] MEDS: LEVOTHYROXINE 75 MCG TAB PO SCH (14:31)
[2021-05-22] MEDS ORDERED: cefTRIAXone IN SWFI 1,000 MG/10 ML SYRINGE IVP STA (14:47)
[2021-05-22] MEDS: ACETAMINOPHEN TAB 325 MG TAB PO PRN (15:12)
[2021-05-22] MEDS ORDERED: SODIUM CHLORIDE 0.9% 1,000 ML IV ONE (15:20)
[2021-05-22] MEDS: SODIUM CHLORIDE 0.9% 1,000 ML IV SCH ×2 (15:20→20:58)
--- NOTE | 2021-05-22 15:35 | CT ---
EXAMINATION TYPE: CT abdomen pelvis wo con DATE OF EXAM: 05/22/2021 COMPARISON: 10/17/2010 HISTORY: Patient poor historian. Abdominal pain CT DLP: 406.9 mGycm Automated exposure control for dose reduction was used. Images obtained from the diaphragm to the floor the pelvis with no contrast. There is mild scarring and subsegmental atelectasis at the right lung base. Heart size is normal. The re is no pericardial effusion. There is no pleural effusion. Liver spleen pancreas stomach appear int act. There are clips from cholecystectomy. The bile ducts are not dilated. There is no adrenal mass. Kidneys have normal size. There is no hydro nephrosis. Ureters are not dilated. There is no retroperitoneal adenopathy. There is a large complex mass in the lower anterior abdomen and pelvis which extends through the ante rior abdominal wall. The mass contains fluid level and complex density and measures approximately 15 x 7 cm. Mass is contiguous with the sigmoid colon and the urinary bladder. The anterior wall of the s igmoid colon appears to be destroyed with the complex density extending into the urinary bladder and then through the anterior abdominal wall. There are numerous sigmoid diverticula. There is no evidenc e of a bowel obstruction. There is no evidence of free air in the abdomen. There is some curvilinear air collection in the floor the pelvis on the right side that could be adjacent to the abnormal urina ry bladder. The lumbar vertebra have normal alignment. There is no compression fracture. The bony pelvis is intac t. The hip joints are intact. 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 Malignant tumor certainly is a consideration. Extensive sigmoid diverticulosis. Fistula and abnormal urinary bladder and extension through the abdominal wall is a change compared t o pelvis CT scan of 10/17/2010.
--- NOTE | 2021-05-22 17:40 | P.HPIM ---
History of Present Illness H&P Date: 05/22/21 Chief Complaint: Generalized weakness Ms. Gardner is a 75-year-old female, with a past medical history of being legally blind in both eyes, thyroid disorder, glaucoma, cataracts, hypothyroidism who lives with his sister at home brought in by his sister because of generalized weakness and unsteady gait with frequent falls. Patient had multiple admissions for the same in the past. She was treated for UTIs and discharged home couple of months back. The patient is a poor historian and her sister is at the bedside provided most of the history. As per discussion with the sister, patient has been having recurrent urinary tract infections and whenever she has urinary tract infection she has generalized weakness and also her gait will be affected. She denies having any falls but couple of times she noticed that the patient was sliding down from sitting in her chair. She also noticed that the patient was complaining of suprapubic discomfort and increased frequency of urination. She is not sure if the patient had fever at home. On talking with the patient, she says that she is in a lot of discomfort and clearly was not sure what was bothering her. All she could do his point out to her belly and see if it hurts. On reviewing the patient's vitals at the time of admission temperature of 102.2, heart rate of 116, respiratory rate 18, blood pressure 1 12 x 78 saturating at 98% on room air. And on reviewing her last white count was 17.8, hemoglobin 10.2, platelets 326. Sodium 125, potassium 4.1, chloride 97, bicarbonate 21, BUN 33, creatinine 0.36. Urine analysis was that date, 3+ protein, large blood, large leukocyte esterases more than 182 WBCs. Clarke virus PCR is negative. So the patient was admitted for further management. Review of Systems ROS unobtainable: due to mental status Past Medical History Past Medical History: Eye Disorder, Skin Disorder, Thyroid Disorder Additional Past Medical History / Comment(s): hypoglycemia, macular degeneration, glaucoma, cataracts,. Legally BLIND both eyes, Hep B 40 years ago. 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, recent soft tissue core biopsy History of Any Multi-Drug Resistant Organisms: None Reported Past Surgical History: Appendectomy, Cholecystectomy, Hysterectomy Additional Past Surgical History / Comment(s): partial hysterectomy, skin growths "burned off" Past Anesthesia/Blood Transfusion Reactions: No Reported Reaction Past Psychological History: No Psychological Hx Reported Smoking Status: Never smoker Past Alcohol Use History: None Reported Past Drug Use History: None Reported - Past Family History Mother Additional Family Medical History / Comment(s): macualr degeneration, cataracts, thyroid Father Family Medical History: Pulmonary Embolus Medications and Allergies Home Medications Medication Instructions Recorded Confirmed Type Latanoprost/Pf [Latanoprost 0.005% 1 drop LEFT EYE HS 12/03/18 05/21/21 History Eye Drop] Levothyroxine Sodium [Synthroid] 75 mcg PO DAILY 12/03/18 05/21/21 History Timolol 0.5% Ophth Soln [Timoptic 1 drop LEFT EYE DAILY 03/28/21 05/21/21 History 0.5% Ophth Soln] Allergies Allergy/AdvReac Type Severity Reaction Status Date / Time codeine Allergy Itching Verified 05/21/21 18:53 Physical Exam Vitals: Vital Signs Temp Pulse Resp BP Pulse Ox 05/22/21 05:51 100 16 130/68 98 05/22/21 03:47 98.9 F 102 H 18 126/62 96 05/22/21 00:57 103 H 18 133/85 99 05/21/21 19:42 84 18 130/80 97 05/21/21 16:31 99.1 F 84 15 137/105 97 Intake and Output 05/21/21 05/22/21 05/22/21 23:59 06:59 14:59 Other: Voiding Method Weight PHYSICAL EXAMINATION: GENERAL: The patient is alert and oriented x1-2, complaining of abdominal pain HEENT: Blind in both eyes. Normocephalic, atraumatic. Neurofibroma lesions seen on the forehead CARDIOVASCULAR : tachycardia PULMONARY: Bilateral breath sounds are positive. No wheeze or crackles. ABDOMEN: Soft, tenderness positive in the suprapubic area. All bony mass felt in the suprapubic area EXTREMITIES: No cyanosis, clubbing, or pedal edema. NEUROLOGICAL: Gross neurological examination did not reveal any focal deficits. SKIN: Neurofibromatosis. Results CBC & Chem 7: 05/23/21 06:13 05/21/21 20:40 Labs: Abnormal Lab Results - Last 24 Hours (Table) 05/21/21 05/21/21 05/21/21 Range/Units 18:50 20:40 20:40 WBC 17.8 H (3.8-10.6) k/uL Hgb 10.2 L (11.4-16.0) gm/dL Hct 33.5 L (34.0-46.0) % MCV 72.8 L (80.0-100.0) fL MCH 22.2 L (25.0-35.0) pg MCHC 30.5 L (31.0-37.0) g/dL RDW 18.2 H (11.5-15.5) % Neutrophils # 16.1 H (1.3-7.7) k/uL Lymphocytes # 0.9 L (1.0-4.8) k/uL Sodium 125 L (137-145) mmol/L Chloride 97 L (98-107) mmol/L Carbon Dioxide 21 L (22-30) mmol/L BUN 33 H (7-17) mg/dL Creatinine 0.36 L (0.52-1.04) mg/dL Glucose 109 H (74-99) mg/dL Calcium 8.2 L (8.4-10.2) mg/dL Urine Appearance Turbid H (Clear) Urine Protein 3+ H (Negative) Urine Ketones 1+ H (Negative) Urine Blood Large H (Negative) Urine Bilirubin 1+ H (Negative) Ur Leukocyte Esterase Large H (Negative) Urine RBC 98 H (0-5) /hpf Urine WBC >182 H (0-5) /hpf Urine WBC Clumps Many H (None) /hpf Urine Bacteria Many H (None) /hpf Urine Mucus Many H (None) /hpf Assessment and Plan Assessment: ASSESSMENT Sepsis secondary to UTI Acute urinary tract infection Hypovolemic hyponatremia Microcytic anemia with possible iron deficiency anemia Mild toxic encephalopathy secondary to acute urinary tract infection Weakness with frequent falls Gait dysfunction Legally blind in bilateral eyes Hypothyroidism History of hypoglycemia GI prophylaxis DVT prophylaxis PLAN: Patient received a dose of ceftriaxone in the ED. Urine cultures are pending and will continue with ceftriaxone for now. Continue with IV hydration for hypovolemic hyponatremia. Ordered a CAT scan of the abdomen and pelvis as bed was a Angel's that could be palpated in the pelvic area. 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 Malignant tumor to be of consideration. So we'll consult urology. Will repeat a.m. labs along with iron panel secondary to microcytic anemia. Overall prognosis seems to be guarded. The treatment plan was discussed in detail with the patient and her sister at bedside. Further recommendations depending on the progress of the patient.
[2021-05-22] MEDS: TIMOLOL 0.5% OPHTH DROPS 5 ML BTL LEFT EYE SCH (18:48)
[2021-05-22] MEDS: LATANOPROST 0.005% OPHTH DROPS 2.5 ML BTL LEFT EYE SCH (20:58)
[2021-05-23] MEDS: ACETAMINOPHEN TAB 325 MG TAB PO PRN ×2 (05:39→21:34)
[2021-05-23] MEDS: LEVOTHYROXINE 75 MCG TAB PO SCH (05:40)
[2021-05-23] MEDS: SODIUM CHLORIDE 0.9% 1,000 ML IV SCH ×2 (08:27→13:57)
[2021-05-23] MEDS: TIMOLOL 0.5% OPHTH DROPS 5 ML BTL LEFT EYE SCH (08:28)
[2021-05-23] MEDS: PANTOPRAZOLE 40 MG TABLET PO SCH (08:28)
[2021-05-23 09:34] LABS: HCT 32.1 % (37.2-46.3); HGB 9.3 g/dL (12.0-15.0); MCV 72.5 fL (80.0-97.0); Mean Platelet Volume 8.5 fL (9.5-12.2); Platelet Count 263 X 10*3/uL (140-440); RBC 4.43 X 10*6/uL (4.10-5.20); RDW 20.7 % (11.5-14.5); WBC 13.17 X 10*3/uL (4.50-10.00)
[2021-05-23 10:21] LABS: % Iron Saturation 7.08 (12.00-45.00); Albumin 1.8 g/dL (3.8-4.9); Albumin/Globulin Ratio 0.68 (1.60-3.17); Anion Gap 11.7 mmol/L (4.00-12.00); BUN/Creat Ratio 80.25 Ratio (12.00-20.00); Blood Urea Nitrogen 25.6 mg/dL (9.0-27.0); Calcium 8.1 mg/dL (8.7-10.3); Carbon Dioxide 21.3 mmol/L (21.6-31.8); Globulin 2.7 g/dL (1.6-3.3); Non-African American GFR(CKD) 111.3 (60.0-200.0); Potassium 4.2 mmol/L (3.5-5.5); Total Bilirubin 0.4 mg/dL (0.30-1.20); Total Protein 4.5 g/dL (6.2-8.2)
--- NOTE | 2021-05-23 11:08 | P.GSCN ---
History of Present Illness Consult date: 05/23/21 Reason for Consult: Abdominal mass, UTI History of present illness: This is a 75-year-old female, with a past medical history of recurrent UTI, abdominal pain and generalized weakness. She is a poor historian. Of note she has had multiple UTIs over the last couple of months, had a positive urine culture for March and April of this year. She underwent a CT abdomen and pelvis, which showed a 15 cm pelvic mass involving the sigmoid colon, and the urinary bladder. There is appears to be a large abscess within the mass. Of note CT also showed extensive diverticulosis. No known gross hematuria. She does have history of a left groin mass, that was excised back in 2019, pathology came back as benign. She had a CT pelvis in 2019, that showed extensive diverticulosis, inflammatory response along the mid sigmoid, no evidence of any bladder pathology at that time. Patient is having significant pain secondary to her pelvic mass. Review of Systems ROS unobtainable: due to mental status Past Medical History Past Medical History: Eye Disorder, Skin Disorder, Thyroid Disorder Additional Past Medical History / Comment(s): hypoglycemia, macular degeneration, glaucoma, cataracts,. Legally BLIND both eyes, Hep B 40 years a go. 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, recent soft tissue core biopsy History of Any Multi-Drug Resistant Organisms: None Reported Past Surgical History: Appendectomy, Cholecystectomy, Hysterectomy Additional Past Surgical History / Comment(s): partial hysterectomy, skin growths "burned off" Past Anesthesia/Blood Transfusion Reactions: No Reported Reaction Past Psychological History: No Psychological Hx Reported Smoking Status: Never smoker Past Alcohol Use History: None Reported Past Drug Use History: None Reported - Past Family History Mother Additional Family Medical History / Comment(s): macualr degeneration, cataracts, thyroid Father Family Medical History: Pulmonary Embolus Medications and Allergies Home Medications Medication Instructions Recorded Confirmed Type Latanoprost/Pf [Latanoprost 0.005% 1 drop LEFT EYE HS 12/03/18 05/21/21 History Eye Drop] Levothyroxine Sodium [Synthroid] 75 mcg PO DAILY 12/03/18 05/21/21 History Timolol 0.5% Ophth Soln [Timoptic 1 drop LEFT EYE DAILY 03/28/21 05/21/21 History 0.5% Ophth Soln] Allergies Allergy/AdvReac Type Severity Reaction Status Date / Time codeine Allergy Itching Verified 05/21/21 18:53 Surgical - Exam Vital Signs Temp Pulse Resp BP Pulse Ox 99.1 F 84 15 137/105 97 05/21/21 16:31 05/21/21 16:31 05/21/21 16:31 05/21/21 16:31 05/21/21 16:31 - General moderate distress, severe pain - Eyes Patient blind pale - ENT normal nares, normal mucosa - Respiratory normal expansion, normal respiratory effort - Abdomen Significant tenderness in the lower quadrant, palpable abdominal mass in the lower quadrant Results - Labs 05/23/21 06:13 05/23/21 06:13 Abnormal Lab Results - Last 24 Hours (Table) 05/23/21 Range/Units 06:13 WBC 13.17 H (4.50-10.00) X 10*3/uL Hgb 9.3 L (12.0-15.0) g/dL Hct 32.1 L (37.2-46.3) % MCV 72.5 L (80.0-97.0) fL MCH 21.0 L (27.0-32.0) pg MCHC 29.0 L (32.0-37.0) g/dL RDW 20.7 H (11.5-14.5) % MPV 8.5 L (9.5-12.2) fL Microbiology - Last 24 Hours (Table) 05/21/21 18:50 Urine Culture - Preliminary Urine,Clean Catch Assessment and Plan Assessment: 75-year-old female admitted with a pelvic mass, colovesical fistula, abscess within the mass. At this time we'll obtain a CT cystogram to better evaluate the bladder, unlikely to be bladder mass, given the lack of gross hematuria. Given her history of extensive diverticulosis more likely a sigmoid pathology rather than bladder cancer. Patient previously seen Dr. Fang, will obtain a general surgery consult -Insert a Fraser catheter -CT cystogram -Continue IV antibiotics -Recommended general surgery consult
[2021-05-23 11:26] LABS: Basophils # (A) 0.04 X 10*3/uL (0.00-0.10); Basophils % (A) 0.3 %; Eosinophils # (A) 0.01 X 10*3/uL (0.04-0.35); Eosinophils % (A) 0.1 %; Lymphocytes # (A) 0.85 X 10*3/uL (0.90-5.00); Lymphocytes % (A) 6.5 %; Monocytes # (A) 0.77 X 10*3/uL (0.20-1.00); Monocytes % (A) 5.8 %; Neutrophils # (A) 11.41 X 10*3/uL (1.80-7.70); Neutrophils % (A) 86.6 %
[2021-05-23 11:27] LABS: Anisocytosis (M) 2+; Microcytosis (M) 2+
--- NOTE | 2021-05-23 13:03 | P.GSCN ---
History of Present Illness Consult date: 05/23/21 History of present illness: CHIEF COMPLAINT: Pain with urination HISTORY OF PRESENT ILLNESS: This is a 75-year-old female who presented to the hospital with complaints of dysuria. She has history of recurring UTIs and history of diverticulosis. Patient currently denies any abdominal pain. She reports that she only has pain with urinating. Currently has Fraser catheter in place. She does have a bedside sitter present due to apparent suicidal ideation. 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 Patient denies any fever chills or sweats. She does have evidence of leukocytosis. She is also being followed by urology and they've ordered a cystogram for today. She has had some mild tachycardia. Patient seen and examined with Dr. graff PAST MEDICAL HISTORY: hypoglycemia, macular degeneration, glaucoma, cataracts,. Legally BLIND both eyes, Hep B 40 years ago. 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 ALLERGIES: See list. SOCIAL HISTORY: No illicit drug use. REVIEW OF SYSTEMS: CONSTITUTIONAL: Denies fever or chills. HEENT: Denies blurred vision, vision changes, or eye pain. Denies hemoptysis CARDIOVASCULAR: Denies chest pain or pressure. RESPIRATORY: No shortness of breath. GASTROINTESTINAL: See HPI for pertinent findings HEMATOLOGIC: Denies bleeding disorders. GENITOURINARY: Denies any blood in urine or increased urinary frequency. SKIN: Denies pruitis. Denies rash. PHYSICAL EXAM: VITAL SIGNS: Reviewed GENERAL: Well-developed in no acute distress. HEENT: No sclera icterus. Extraocular movements grossly intact. Moist buccal mucosa. Head is atraumatic, normocephalic. No nasal drainage. ABDOMEN: Soft. Nondistended. Nontender NEUROLOGIC: Alert and oriented. Cranial nerves II through XII grossly intact. 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 Malignant tumor is certainly a consideration. Extensive sigmoid diverticulosis. Fistula and abnormal urinary bladder and extension throughout the abdominal wall is change compared to pelvis CT of 10/17/2010. Pelvic mass measuring 15 x 7cm. ASSESSMENT: 1. 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 History of recurrent UTIs 3. Extensive sigmoid diverticulosis noted on CAT scan PLAN: -Continue antibiotics -Agree with urology consult. Cystogram is pending -Patient will likely require a computed tomography scan of the abdomen and pelvis with rectal contrast depending cystogram results -Further recommendations forthcoming per surgeon -Continue supportive care Thank you for this consultation Physician Foam Molder note has been reviewed by physician. Signing provider agrees with the documented findings, assessment, and plan of care. Past Medical History Past Medical History: Eye Disorder, Skin Disorder, Thyroid Disorder Additional Past Medical History / Comment(s): hypoglycemia, macular degeneration, glaucoma, cataracts,. Legally BLIND both eyes, Hep B 40 years ago. 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, recent soft tissue core biopsy History of Any Multi-Drug Resistant Organisms: None Reported Past Surgical History: Appendectomy, Cholecystectomy, Hysterectomy Additional Past Surgical History / Comment(s): partial hysterectomy, skin growths "burned off" Past Anesthesia/Blood Transfusion Reactions: No Reported Reaction Past Psychological History: No Psychological Hx Reported Smoking Status: Never smoker Past Alcohol Use History: None Reported Past Drug Use History: None Reported - Past Family History Mother Additional Family Medical History / Comment(s): macualr degeneration, cataracts, thyroid Father Family Medical History: Pulmonary Embolus Medications and Allergies Home Medications Medication Instructions Recorded Confirmed Type Latanoprost/Pf [Latanoprost 0.005% 1 drop LEFT EYE HS 12/03/18 05/21/21 History Eye Drop] Levothyroxine Sodium [Synthroid] 75 mcg PO DAILY 12/03/18 05/21/21 History Timolol 0.5% Ophth Soln [Timoptic 1 drop LEFT EYE DAILY 03/28/21 05/21/21 History 0.5% Ophth Soln] Allergies Allergy/AdvReac Type Severity Reaction Status Date / Time codeine Allergy Itching Verified 05/21/21 18:53 Surgical - Exam Vital Signs Temp Pulse Resp BP Pulse Ox 99.1 F 84 15 137/105 97 05/21/21 16:31 05/21/21 16:31 05/21/21 16:31 05/21/21 16:31 05/21/21 16:31 Results - Labs 05/23/21 06:13 05/23/21 06:13 Abnormal Lab Results - Last 24 Hours (Table) 05/23/21 05/23/21 Range/Units 06:13 06:13 WBC 13.17 H (4.50-10.00) X 10*3/uL Hgb 9.3 L (12.0-15.0) g/dL Hct 32.1 L (37.2-46.3) % MCV 72.5 L (80.0-97.0) fL MCH 21.0 L (27.0-32.0) pg MCHC 29.0 L (32.0-37.0) g/dL RDW 20.7 H (11.5-14.5) % MPV 8.5 L (9.5-12.2) fL Immature Gran # 0.09 H (0.00-0.04) X 10*3/uL Neutrophils # 11.41 H (1.80-7.70) X 10*3/uL Lymphocytes # 0.85 L (0.90-5.00) X 10*3/uL Eosinophils # 0.01 L (0.04-0.35) X 10*3/uL Sodium 130 L (135-145) mmol/L Carbon Dioxide 21.3 L (21.6-31.8) mmol/L Creatinine 0.3 L (0.6-1.5) mg/dL BUN/Creatinine Ratio 80.25 H (12.00-20.00) Ratio Calcium 8.1 L (8.7-10.3) mg/dL Iron 12 L (50-170) ug/dL TIBC 168 L (228-460) ug/dL % Saturation 7.08 L (12.00-45.00) Transferrin 120.0 L (204.0-354.0) mg/dL ALT 7 L (8-44) U/L Total Protein 4.5 L (6.2-8.2) g/dL Albumin 1.8 L (3.8-4.9) g/dL Albumin/Globulin Ratio 0.68 L (1.60-3.17) g/dL Microbiology - Last 24 Hours (Table) 05/21/21 18:50 Urine Culture - Preliminary Urine,Clean Catch Diabetes panel 05/23/21 Range/Units 06:13 Sodium 130 L (135-145) mmol/L Potassium 4.2 (3.5-5.5) mmol/L Chloride 97 (96-109) mmol/L Carbon Dioxide 21.3 L (21.6-31.8) mmol/L BUN 25.6 (9.0-27.0) mg/dL Creatinine 0.3 L (0.6-1.5) mg/dL Glucose 81 (70-110) mg/dL Calcium 8.1 L (8.7-10.3) mg/dL AST 15 (13-35) U/L ALT 7 L (8-44) U/L Alkaline Phosphatase 99 (41-126) U/L Total Protein 4.5 L (6.2-8.2) g/dL Albumin 1.8 L (3.8-4.9) g/dL Calcium panel 05/23/21 Range/Units 06:13 Calcium 8.1 L (8.7-10.3) mg/dL Albumin 1.8 L (3.8-4.9) g/dL Pituitary panel 05/23/21 Range/Units 06:13 Sodium 130 L (135-145) mmol/L Potassium 4.2 (3.5-5.5) mmol/L Chloride 97 (96-109) mmol/L Carbon Dioxide 21.3 L (21.6-31.8) mmol/L BUN 25.6 (9.0-27.0) mg/dL Creatinine 0.3 L (0.6-1.5) mg/dL Glucose 81 (70-110) mg/dL Calcium 8.1 L (8.7-10.3) mg/dL Adrenal panel 05/23/21 Range/Units 06:13 Sodium 130 L (135-145) mmol/L Potassium 4.2 (3.5-5.5) mmol/L Chloride 97 (96-109) mmol/L Carbon Dioxide 21.3 L (21.6-31.8) mmol/L BUN 25.6 (9.0-27.0) mg/dL Creatinine 0.3 L (0.6-1.5) mg/dL Glucose 81 (70-110) mg/dL Calcium 8.1 L (8.7-10.3) mg/dL Total Bilirubin 0.40 (0.30-1.20) mg/dL AST 15 (13-35) U/L ALT 7 L (8-44) U/L Alkaline Phosphatase 99 (41-126) U/L Total Protein 4.5 L (6.2-8.2) g/dL Albumin 1.8 L (3.8-4.9) g/dL
--- NOTE | 2021-05-23 13:10 | CT ---
EXAMINATION TYPE: CT Cystogram DATE OF EXAM: 05/23/2021 COMPARISON: CT abdomen and pelvis from yesterday along with CT pelvis July 10, 2019. HISTORY: Patient poor historian. Recent abnormal CT. History of hysterectomy with pelvic mass. CT DLP: 649.3 mGycm Automated exposure control for dose reduction was used. CONTRAST: CT pelvis performed without oral or IV contrast. There is attempted cystogram with injectio n through a Fraser catheter. Imaging performed before and after injection. FINDINGS: Uterus noted surgically absent. Fraser catheter balloon now present in the posterior right a spect of the bladder wall which appears to have eroded into the vaginal cuff based on some retrograde filling of contrast dependently in the pelvis. Suboptimal retrograde filling of bladder per technolo gist as injected contrast spills externally from the patient. There is air-fluid level seen just anterior to this where there is redemonstration of a large irregul ar thick walled mass that extends into the anterior abdominal wall that has nonsimple fluid. There is direct communication from the bladder to the adjacent sigmoid colon seen best on axial image 37 seri es 301. Sigmoid colon at this level shows diffuse diverticulosis. There is presumed contained perfora tion of the anterior bladder wall as there is air fluid level extending to the anterior pelvic subcut aneous tissue likely causing anterior rectal sheath at least outpouching, suspect direct extension an d separation of the inferior rectus muscles axial image 36 with direct communication to the abnormal bladder. Persistent moderate to severe lumbosacral disc space narrowing. Persistent moderate axial joint space loss in both hips. IMPRESSION: Abnormal bladder with complex mass that has fistulous communication to the adjacent sigmo id colon. There is a contained perforation extending anteriorly into the lower pelvic anterior wall t hrough the rectus sheath and muscles. There is posterior extension into the vaginal cough. Suspect un derlying mass or neoplasm and development of pelvic abscess.
[2021-05-23] MEDS: PIPERACILLIN-TAZOBACTAM 3.375 GM in SODIUM CHLORIDE 0.9% 100 ML IVPB SCH ×2 (13:57→21:32)
--- NOTE | 2021-05-23 14:02 | P.CN ---
Psychiatric Consult - . Consult date: 05/23/21 Consult:: 05/23/21 14:02 IDENTIFYING DATA: This patient is a single, retired, 75-year-old female with a significant history of glaucoma, hypothyroidism, who presented to the hospital because of generalized weakness and unsteady gait with frequent falls. HISTORY OF PRESENT ILLNESS: The patient presented to the hospital on 05/22/2021 due to recurrent falls and generalized weakness. The patient was brought in by her sister. Upon admission to the emergency department, the patient was determined to have a UTI. Psychiatry has been consulted for evaluation and management of depression and suicidal ideation. Currently, the patient is not endorsing any significant depressive symptoms at this time. She is denying any hopelessness, helplessness, anhedonia, low motivation, difficult to asleep, or changes in appetite. Furthermore, the patient is vehemently denying any suicidal or homicidal ideation, intention, and/or plan. She denies any prior attempts at suicide. She reports no significant history of bipolar disorder and no significant history of auditory or visual hallucinations. PAST PSYCHIATRIC HISTORY: The patient denies any significant psychiatric history. Patient denies being on any psychiatric medications. Patient denies any previous psychiatric hospitalizations. Patient denies any psychiatric outpatient follow-up. Patient denies any history of suicide attempts in the past. PAST MEDICAL HISTORY: Past Medical History: Eye Disorder, Skin Disorder, Thyroid Disorder Additional Past Medical History / Comment(s): hypoglycemia, macular degeneration, glaucoma, cataracts,. Legally BLIND both eyes, Hep B 40 years ago. 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 CHEMICAL DEPENDENCY HISTORY: The patient vehemently denies any tobacco, alcohol, marijuana, or illicit drug use. FAMILY PSYCHIATRIC/SUBSTANCE USE HISTORY: Denies any significant family history of mental illness, substance abuse, or suicide. SOCIAL HISTORY: Patient was born and raised in [place], [place]. She currently lives with her sister. She is single, and has no children. Never . She is currently retired after working at a [email or web address] company. She denies any legal problems. She reports no holiness affiliation. MENTAL STATUS EXAM: General Appearance: Patient appears to be stated age is alert, pleasant, and cooperative. Patient appears to have fair hygiene and grooming wearing hospital gown with poor eye contact. Neurofibromatosis is noted. Behavior: Patient is calmly lying in bed without any agitated behavior. Speech: Patient's speech is fluent and nonpressured. Mood/Affect: Patient reports their mood is "doing okay", affect is blunted. Suicidality/Homicidality: Patient denies having any suicidal or homicidal ideation intent or plan. Perceptions: Patient denies any visual hallucinations and denies any auditory hallucinations Though content/process: There is no evidence of any delusional thought content and thought process is linear and goal-directed. Memory and concentration: AOX3, grossly intact for the purposes of this session. Can spell "WORLD" backwards Judgment and insight: Fair IMPRESSIONS: Sepsis secondary to UTI Urinary tract infection Microcytic anemia Glaucoma Hypothyroidism PLAN: -At this time patient DOES NOT meet criteria for inpatient psychiatric admission. -Delirium precautions recommended with patient including - avoiding use of narcotics and CLUB MANAGER sedatives, limit anticholinergic medications when possible, frequent re-orientation, minimize use of restraints, open window shades during the day and close them at night -Would recommend the following medication changes/additions: No medication recommendations are made at this time -Discontinue one-to-one sitter. -Psychiatry will sign off at this point, please contact with any questions. Thank you for this consult. 05/23/21 14:02
[2021-05-23] MEDS: LATANOPROST 0.005% OPHTH DROPS 2.5 ML BTL LEFT EYE SCH (21:33)
[2021-05-23] MEDS ORDERED: FERROUS SULFATE 325 MG TAB PO STA (23:26)
--- NOTE | 2021-05-23 23:26 | P.PN ---
Subjective Progress Note Date: 05/23/21 Principal diagnosis: UTI Ms. Gardner is a 75-year-old female, with a past medical history of being legally blind in both eyes, thyroid disorder, glaucoma, cataracts, hypothyroidi sm who lives with his sister at home brought in by his sister because of generalized weakness and unsteady gait with frequent falls. Patient had multiple admissions for the same in the past. She was treated for UTIs and discharged home couple of months back. The patient is a poor historian and her sister is at the bedside provided most of the history. As per discussion with the sister, patient has been having recurrent urinary tract infections and whenever she has urinary tract infection she has generalized weakness and also her gait will be affected. She denies having any falls but couple of times she noticed that the patient was sliding down from sitting in her chair. She also noticed that the patient was complaining of suprapubic discomfort and increased frequency of urination. She is not sure if the patient had fever at home. On talking with the patient, she says that she is in a lot of discomfort and clearly was not sure what was bothering her. All she could do his point out to her belly and see if it hurts. On reviewing the patient's vitals at the time of admission temperature of 102.2, heart rate of 116, respiratory rate 18, blood pressure 1 12 x 78 saturating at 98% on room air. And on reviewing her last white count was 17.8, hemoglobin 10.2, platelets 326. Sodium 125, potassium 4.1, chloride 97, bicarbonate 21, BUN 33, creatinine 0.36. Urine analysis was that date, 3+ protein, large blood, large leukocyte esterases more than 182 WBCs. Clarke virus PCR is negative. So the patient was admitted for further management. On 05/23/2021 -patient is seen and examined at the bedside. As the patient had an abdominal CAT scan of the abdomen and pelvis yesterday, urology was consulted and they reviewed the CAT scans and suggested a surgical consult. Patient was seen by surgery and they suggested CAT scan of the abdomen pelvis with rectal contrast. Patient is lying comfortably in bed appears to be no acute distress. Her sister is at the bedside. Patient has been getting pain medications for her abdominal pain, complains of less pain in the suprapubic area. She denied having any fevers chills or rigors. No chest pain or palpitations. No cough or difficulty in breathing. On reviewing the patient's vitals temperature of 97.4, heart rate 98, respiratory rate 14, blood pressure 92 x 58 saturating at 99% on room air. On reviewing the patient's labs white count of 13.7, hemoglobin 9.3, platelets 263. Sodium 130, potassium 4.2, chloride 99, bicarb 21, BUN 25, creatinine 0.3. Patient had iron studies showing total iron of goal while TIBC of 168 transferrin of 120. And albumin of 1.8. Urine cultures are currently pending. Patient's medications have been reviewed Active Medications Acetaminophen (Acetaminophen Tab 325 Mg Tab) 650 mg PO Q6HR PRN PRN Reason: Fever and/ or Pain Last Admin: 05/23/21 21:34 Dose: 650 mg Documented by: Sodium Chloride (Saline 0.9%) 1,000 mls @ 75 mls/hr IV .[id number] [facility] Last Admin: 05/23/21 13:57 Dose: 75 mls/hr Documented by: Piperacillin Sod/Tazobactam (Sod 3.375 gm/ Sodium Chloride) 100 mls @ 25 mls/hr IVPB Q8H [facility] Last Admin: 05/23/21 21:32 Dose: 25 mls/hr Documented by: Latanoprost (Latanoprost 0.005% Ophth Drops 2.5 Ml Btl) 1 drops LEFT EYE HS [facility] Last Admin: 05/23/21 21:33 Dose: 1 drops Documented by: Levothyroxine Sodium (Levothyroxine 75 Mcg Tab) 75 mcg PO DAILY@0630 [facility] Last Admin: 05/23/21 05:40 Dose: 75 mcg Documented by: Naloxone HCl (Naloxone 0.4 Mg/Ml 1 Ml Vial) 0.2 mg IV Q2M PRN PRN Reason: Opioid Reversal Pantoprazole Sodium (Pantoprazole 40 Mg Tablet) 40 mg PO [id number] [facility] Last Admin: 05/23/21 08:28 Dose: Not Given Documented by: Timolol Maleate (Timolol 0.5% Ophth Drops 5 Ml Btl) 1 drops LEFT EYE DAILY [facility] Last Admin: 05/23/21 08:28 Dose: Not Given Documented by: Objective - Vital Signs Vital signs: Vital Signs Temp 97.4 F L 05/23/21 07:32 Pulse 98 05/23/21 08:00 Resp 14 05/23/21 08:00 BP 92/58 05/23/21 07:32 Pulse Ox 99 05/23/21 07:32 Intake & Output 05/22/21 05/23/21 05/23/21 18:59 06:59 18:59 Weight 58.513 kg Other: Voiding Method Diaper Diaper External Catheter External Catheter # Bowel Movements 1 4 - Exam PHYSICAL EXAMINATION: GENERAL: The patient is alert and oriented x1-2, complaining of abdominal pain HEENT: Blind in both eyes. Normocephalic, atraumatic. Neurofibroma lesions seen on the forehead CARDIOVASCULAR : tachycardia PULMONARY: Bilateral breath sounds are positive. No wheeze or crackles. ABDOMEN: Soft, tenderness positive in the suprapubic area. bony mass felt in the suprapubic area EXTREMITIES: No cyanosis, clubbing, or pedal edema. NEUROLOGICAL: Gross neurological examination did not reveal any focal deficits. SKIN: Neurofibromatosis. - Labs CBC & Chem 7: 05/23/21 06:13 05/23/21 06:13 Labs: Abnormal Lab Results - Last 24 Hours (Table) 05/23/21 05/23/21 Range/Units 06:13 06:13 WBC 13.17 H (4.50-10.00) X 10*3/uL Hgb 9.3 L (12.0-15.0) g/dL Hct 32.1 L (37.2-46.3) % MCV 72.5 L (80.0-97.0) fL MCH 21.0 L (27.0-32.0) pg MCHC 29.0 L (32.0-37.0) g/dL RDW 20.7 H (11.5-14.5) % MPV 8.5 L (9.5-12.2) fL Immature Gran # 0.09 H (0.00-0.04) X 10*3/uL Neutrophils # 11.41 H (1.80-7.70) X 10*3/uL Lymphocytes # 0.85 L (0.90-5.00) X 10*3/uL Eosinophils # 0.01 L (0.04-0.35) X 10*3/uL Sodium 130 L (135-145) mmol/L Carbon Dioxide 21.3 L (21.6-31.8) mmol/L Creatinine 0.3 L (0.6-1.5) mg/dL BUN/Creatinine Ratio 80.25 H (12.00-20.00) Ratio Calcium 8.1 L (8.7-10.3) mg/dL Iron 12 L (50-170) ug/dL TIBC 168 L (228-460) ug/dL % Saturation 7.08 L (12.00-45.00) Transferrin 120.0 L (204.0-354.0) mg/dL ALT 7 L (8-44) U/L Total Protein 4.5 L (6.2-8.2) g/dL Albumin 1.8 L (3.8-4.9) g/dL Albumin/Globulin Ratio 0.68 L (1.60-3.17) g/dL Microbiology - Last 24 Hours (Table) 05/21/21 18:50 Urine Culture - Final Urine,Clean Catch Assessment and Plan Assessment: ASSESSMENT Sepsis secondary to UTI Acute urinary tract infection Hypovolemic hyponatremia Microcytic anemia with possible iron deficiency anemia Mild toxic encephalopathy secondary to acute urinary tract infection Weakness with frequent falls Gait dysfunction Legally blind in bilateral eyes Hypothyroidism History of hypoglycemia GI prophylaxis DVT prophylaxis PLAN:CAT scan of the abdomen and pelvis showing large complex pelvic mass consistent with 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 Urology has plans of doing a cystoscopy and they also suggested in general surgery consult. General surgery was consulted and the patient was ordered a CAT scan of the abdomen pelvis with rectal contrast. Last night patient had suicidal ideation, was so sitter was ordered at the bedside. She was cleared by psych team to be not actively suicidal and to continue with the current medical management. Had a lengthy discussion with the patient and her sister at bedside regarding the mass and probability of it being malignancy. Patient had iron panel done, showing low iron levels so will be started on ferrous sulfate. Patient mentioned that she does not want any kind of surgical procedure, but sister was trying to convince her to get treated for this. For now the patient will be continued on Zosyn for her UTI, pending cultures. Further recommendations to follow depending on the progress of the patient. Overall prognosis remains guarded.
[2021-05-24] MEDS: PIPERACILLIN-TAZOBACTAM 3.375 GM in SODIUM CHLORIDE 0.9% 100 ML IVPB SCH ×3 (04:36→21:14)
[2021-05-24] MEDS: LEVOTHYROXINE 75 MCG TAB PO SCH (05:54)
[2021-05-24] MEDS: TIMOLOL 0.5% OPHTH DROPS 5 ML BTL LEFT EYE SCH (09:22)
[2021-05-24] MEDS: PANTOPRAZOLE 40 MG TABLET PO SCH (09:28)
[2021-05-24 10:02] LABS: Basophils # (A) 0.03 X 10*3/uL (0.00-0.10); Basophils % (A) 0.2 %; Eosinophils # (A) 0.01 X 10*3/uL (0.04-0.35); Eosinophils % (A) 0.1 %; HCT 30.7 % (37.2-46.3); HGB 9.1 g/dL (12.0-15.0); Lymphocytes # (A) 0.95 X 10*3/uL (0.90-5.00); Lymphocytes % (A) 7.5 %; MCH 21.7 pg (27.0-32.0); MCHC 29.6 g/dL (32.0-37.0); MCV 73.3 fL (80.0-97.0); Mean Platelet Volume 8.6 fL (9.5-12.2); Monocytes # (A) 0.81 X 10*3/uL (0.20-1.00); Monocytes % (A) 6.4 %; Neutrophils # (A) 10.86 X 10*3/uL (1.80-7.70); Neutrophils % (A) 85.1 %; Platelet Count 213 X 10*3/uL (140-440); RBC 4.19 X 10*6/uL (4.10-5.20); RDW 20.6 % (11.5-14.5); WBC 12.75 X 10*3/uL (4.50-10.00)
[2021-05-24 11:00] LABS: African American GFR (CKD) 131.6 (60.0-200.0); Anion Gap 9.1 mmol/L (4.00-12.00); BUN/Creat Ratio 70.33 Ratio (12.00-20.00); Blood Urea Nitrogen 21.1 mg/dL (9.0-27.0); Calcium 7.8 mg/dL (8.7-10.3); Carbon Dioxide 22.9 mmol/L (21.6-31.8); Non-African American GFR(CKD) 113.6 (60.0-200.0); Potassium 3.6 mmol/L (3.5-5.5)
[2021-05-24] MEDS: SODIUM CHLORIDE 0.9% 1,000 ML IV SCH (11:42)
--- NOTE | 2021-05-24 12:42 | P.PN ---
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 Patient has Fraser catheter in place that has no urine output. Patient is excreting her urine from the rectum with stool. She is followed by urology as well. She had a cystogram completed yesterday that showed abnormal bladder with complex mass that has fistulous communication to the adjacent sigmoid colon. There is a contained perforation extending anteriorly into the lower pelvic anterior wall through the rectus sheath and muscles. There is posterior extension into the vaginal cuff. Suspect underlying mass or neoplasm and development of pelvic abscess. Patient has pelvic pain with palpation or movement. Denies any nausea or vomiting. Afebrile. She has had a few episodes of tachycardia. WBC 12.75 Hgb 9.1 PLT 213 sodium 131 potassium 3.6 BUN 21 creatinine 0.3 Patient seen and examined with Dr. graff PHYSICAL EXAM: VITAL SIGNS: Reviewed. GENERAL: Well-developed in no acute distress. HEENT: No sclera icterus. Extraocular movements grossly intact. Moist buccal mucosa. Head is atraumatic, normocephalic. ABDOMEN: Soft. Fullness noted in the pelvic area with palpation with tenderness. NEUROLOGIC: Confused. Patient did have hallucination during exam. She thought her sister was in the room when she wasn't. ASSESSMENT: 1. 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 History of recurrent UTIs 3. History of diverticulitis PLAN: -Patient is tentatively scheduled for a diverting colostomy tomorrow, 05/25/[address] Graff. Awaiting patient's sister's decision regarding surgery. -Keep patient nothing by mouth after midnight -Continue antibiotics Physician Printing Table Worker note has been reviewed by physician. Signing provider agrees with the documented findings, assessment, and plan of care. Objective - Vital Signs Vital signs: Vital Signs Temp 98.2 F 05/24/21 07:46 Pulse 98 05/24/21 07:46 Resp 16 05/24/21 07:46 BP 104/69 05/24/21 07:46 Pulse Ox 91 L 05/24/21 07:46 Intake & Output 05/23/21 05/24/21 05/24/21 18:59 06:59 18:59 Other: Voiding Method Diaper Diaper Diaper External Catheter External Catheter External Catheter # Voids 3 1 # Bowel Movements 3 1 - Labs CBC & Chem 7: 05/24/21 06:39 05/24/21 06:39 Labs: Abnormal Lab Results - Last 24 Hours (Table) 05/24/21 05/24/21 Range/Units 06:39 06:39 WBC 12.75 H (4.50-10.00) X 10*3/uL Hgb 9.1 L (12.0-15.0) g/dL Hct 30.7 L (37.2-46.3) % MCV 73.3 L (80.0-97.0) fL MCH 21.7 L (27.0-32.0) pg MCHC 29.6 L (32.0-37.0) g/dL RDW 20.6 H (11.5-14.5) % MPV 8.6 L (9.5-12.2) fL Immature Gran # 0.09 H (0.00-0.04) X 10*3/uL Neutrophils # 10.86 H (1.80-7.70) X 10*3/uL Eosinophils # 0.01 L (0.04-0.35) X 10*3/uL Sodium 131 L (135-145) mmol/L Creatinine 0.3 L (0.6-1.5) mg/dL BUN/Creatinine Ratio 70.33 H (12.00-20.00) Ratio Calcium 7.8 L (8.7-10.3) mg/dL Microbiology - Last 24 Hours (Table) 05/21/21 18:50 Urine Culture - Final Urine,Clean Catch
--- NOTE | 2021-05-24 17:23 | P.PN ---
Subjective Progress Note Date: 05/24/21 The patient has a pelvic mass, colovesical fistula. The urine is primarily going thru the rectum I spoke with the patient and sister today. There is consideration for a diverting colostomy tomorrow. This would just be the beginning of the surgical approach to this patient. From a urological standpoin t she would be better served at a [facility]. this has been discussed with the patient and sister. Objective - Vital Signs Vital signs: Vital Signs Temp 98.3 F 05/24/21 14:57 Pulse 95 05/24/21 14:57 Resp 18 05/24/21 14:57 BP 101/70 05/24/21 14:57 Pulse Ox 97 05/24/21 14:57 Intake & Output 05/23/21 05/24/21 05/24/21 18:59 06:59 18:59 Other: Voiding Method Diaper Diaper Diaper External Catheter External Catheter External Catheter # Voids 3 1 # Bowel Movements 3 1 - Labs CBC & Chem 7: 05/24/21 06:39 05/24/21 06:39 Labs: Abnormal Lab Results - Last 24 Hours (Table) 05/24/21 05/24/21 Range/Units 06:39 06:39 WBC 12.75 H (4.50-10.00) X 10*3/uL Hgb 9.1 L (12.0-15.0) g/dL Hct 30.7 L (37.2-46.3) % MCV 73.3 L (80.0-97.0) fL MCH 21.7 L (27.0-32.0) pg MCHC 29.6 L (32.0-37.0) g/dL RDW 20.6 H (11.5-14.5) % MPV 8.6 L (9.5-12.2) fL Immature Gran # 0.09 H (0.00-0.04) X 10*3/uL Neutrophils # 10.86 H (1.80-7.70) X 10*3/uL Eosinophils # 0.01 L (0.04-0.35) X 10*3/uL Sodium 131 L (135-145) mmol/L Creatinine 0.3 L (0.6-1.5) mg/dL BUN/Creatinine Ratio 70.33 H (12.00-20.00) Ratio Calcium 7.8 L (8.7-10.3) mg/dL Microbiology - Last 24 Hours (Table) 05/21/21 18:50 Urine Culture - Final Urine,Clean Catch
--- NOTE | 2021-05-24 17:38 | PN ---
PROGRESS NOTE DATE OF SERVICE: 05/24/2021 This 75-year-old woman who was admitted with UTI was also found to have abnormal bladder with a complex mass and multiple fistulas also. Surgery has been consulted. Patient continues to be confused. No chest pain. No palpitations. No fever. Patient refused surgery previously. PHYSICAL EXAMINATION: Pulse 95, blood pressure 100/70, respiration 18, temperature 98.3, pulse ox 97% on room air. HEENT: Conjunctivae normal. NECK: No jugular venous distention. CARDIOVASCULAR: S1, S2 muffled. RESPIRATION: Breath sounds diminished at the bases. A few scattered rhonchi. ABDOMEN: Soft. NERVOUS SYSTEM: Diffusely weak. LABS: WBC 12.7, hemoglobin 4.5. The cultures are negative. ASSESSMENT: 1. Acute urinary tract infection with sepsis possibly. 2. Abnormal bladder with complex mass lesion with multiple communications to adjacent sigmoid colon and multiple fistulas, with possible pelvic abscess. 3. Hypovolemic hyponatremia. 4. Macrocytic anemia with possibly iron deficiency anemia. 5. Mild toxic encephalopathy secondary to acute urinary tract infection. 6. Weakness with frequent falls. 7. Gait dysfunction. 8. Legal blindness. 9. Hypothyroidism. 10.History of hypoglycemia. 11.Gastrointestinal prophylaxis. 12.Deep vein thrombosis prophylaxis. 13.Increased white count. 14.Anemia of chronic disease. 15.NO CODE, NO CPR, NO VENT. 16.Mild protein-calorie malnutrition with body mass index of 19. RECOMMENDATIONS AND DISCUSSION: In this 75-year-old woman who presented with multiple complex medical issues, we will continue to monitor. The patient has multiple complex lesions, including possible pelvic abscess. Dr. Suazo was seeing the patient during the previous hospitalization. I would also recommend an infectious disease consult. The prognosis is guarded because of multiple complex medical issues. Further recommendations to follow. MMODL / IJN: [id number] /
[2021-05-24] MEDS: LATANOPROST 0.005% OPHTH DROPS 2.5 ML BTL LEFT EYE SCH (21:13)
[2021-05-25] MEDS: SODIUM CHLORIDE 0.9% 1,000 ML IV SCH ×2 (02:29→12:56)
[2021-05-25] MEDS: PIPERACILLIN-TAZOBACTAM 3.375 GM in SODIUM CHLORIDE 0.9% 100 ML IVPB SCH ×3 (06:07→20:36)
[2021-05-25] MEDS: LEVOTHYROXINE 75 MCG TAB PO SCH (06:07)
[2021-05-25 07:46] LABS: African American GFR (CKD) >90 (>60 ml/min/1.73 sqM); Anion Gap 5 mmol/L; Blood Urea Nitrogen 20 mg/dL (7-17); Carbon Dioxide 25 mmol/L (22-30); Chloride 100 mmol/L (98-107); Glucose 64 mg/dL (74-99); Non-African American GFR(CKD) >90 (>60 ml/min/1.73 sqM); Potassium 3.2 mmol/L (3.5-5.1); Sodium 130 mmol/L (137-145)
[2021-05-25] MEDS: PANTOPRAZOLE 40 MG TABLET PO SCH (08:11)
[2021-05-25] MEDS: TIMOLOL 0.5% OPHTH DROPS 5 ML BTL LEFT EYE SCH (08:12)
[2021-05-25 10:01] LABS: HCT 32.5 % (37.2-46.3); HGB 9.4 g/dL (12.0-15.0); MCHC 28.9 g/dL (32.0-37.0); MCV 72.7 fL (80.0-97.0); Mean Platelet Volume 8.9 fL (9.5-12.2); Platelet Count 226 X 10*3/uL (140-440); RBC 4.47 X 10*6/uL (4.10-5.20); RDW 21.1 % (11.5-14.5); WBC 14.74 X 10*3/uL (4.50-10.00)
--- NOTE | 2021-05-25 11:03 | P.CONS ---
History of Present Illness - Reason for Consult Consult date: 05/24/21 pelvic abscess Requesting physician: Osiris Mandel - Chief Complaint dysuria x few days - History of Present Illness History of Present Illness : Patient is a 75-year-old female presenting to the ER 3 days ago for evaluation of dysuria that been going on for a day or 2 before presentation to the hospital with the symptom the patient presented to hospital pain complaining of some lower abdominal pain more of a dull aching 3-4 of 10 in radiation some nausea but no vomiting denies having any chest pain shortness of breath or cough or any high-grade fever on presentation the hospital appeared to have low-grade fever of 99.1 patient did have white count of 17.8 that is down to 12.75 patient did have normal kidney function urine was positive ro PCR was negative patient did have a CT of abdominal pelvis with evidence of large complex pelvic mass consistent with large abscess with fistula between the bladder and the sigmoid colon extraluminal complex flu id collection extending through the anterior abdominal wall patient has been evaluated by the general surgery and urology services, with a general surgery recommending the patient undergo her diverting colostomy and drainage of the abscess urology is recommending the patient to be transferred to tertiary care infectious disease was consulted this evening for further management of antibiotic after the patient has been the hospital for more than 3 days patient did not have any blood cultures done during this admission and urine cultures came back negative Review of system: CONSTITUTIONAL: Positive for weakness denies high-grade fever. EYES: No complaint. ENT: No complaint. RESPIRATORY: No complaint. CARDIOVASCULAR: No complaint. GENITOURINARY: As per history of present illness. GASTROINTESTINAL: As per history of present illness. MUSCULOSKELETAL: No complaint. INTEGUMENTARY : No complaint. PSYCHOLOGIC: No complaint. ENDOCRINE: No complaint. NEUROLOGIC: No complaint. Past medical history : Reviewed, documented below Past surgical history : Reviewed, documented below Social history: Reviewed, documented below Medications: Reviewed, as documented below EXAMINATION: Vital sigans= Reviewed and documented below GENERAL DESCRIPTION: Elderly female lying in bed, no distress. No tachypnea or accessory muscle of respiration use. HEENT: Shows Pallor , no scleral icterus. Oral mucous membrane is dry. NECK: Trachea central, no thyromegaly. LUNGS: Unlabored breathing. Clear to auscultation anteriorly. No wheeze or crackle. HEART: S1, S2, regular rate and rhythm. ABDOMEN: Soft, lower abdominal tenderness , no guarding or rigidity EXTREMITIES: No edema feet SKIN: No rash, no masses palpable. NEUROLOGICAL: The patient is awake, alert, oriented x3, mood and affect normal. LABS AND RADIOLOGY: Reviewed results see below Assessment : Patient with pelvic abscess more likely related to sigmoid diverticulitis now with concern for colovesical fistula in this patient who did extensive surgery for repair of the bladder as well as drainage of the abscess and cultures to guide further antibiotic therapy for now we will cover the patient for enteric gram-negative both aerobes and anaerobes likely pathogen with this type of infection Plan: 1-patient will need culture both aerobic anaerobic at the time of surgery 2-if the patient spiked a fever to obtain blood cultures 3-Zosyn 3.375 g every 8 hours to continue We will follow on clinical condition and cultures to further adjust medication if needed Thank you for this consultation we will follow the patient along with you Past Medical History Past Medical History: Eye Disorder, Skin Disorder, Thyroid Disorder Additional Past Medical History / Comment(s): hypoglycemia, macular degeneration, glaucoma, cataracts,. Legally BLIND both eyes, Hep B 40 years ago. 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, recent soft tissue core biopsy History of Any Multi-Drug Resistant Organisms: None Reported Past Surgical History: Appendectomy, Cholecystectomy, Hysterectomy Additional Past Surgical History / Comment(s): partial hysterectomy, skin growths "burned off" Past Anesthesia/Blood Transfusion Reactions: No Reported Reaction Past Psychological History: No Psychological Hx Reported Smoking Status: Never smoker Past Alcohol Use History: None Reported Past Drug Use History: None Reported - Past Family History Mother Additional Family Medical History / Comment(s): macualr degeneration, cataracts, thyroid Father Family Medical History: Pulmonary Embolus Medications and Allergies Home Medications Medication Instructions Recorded Confirmed Type Latanoprost/Pf [Latanoprost 0.005% 1 drop LEFT EYE HS 12/03/18 05/21/21 History Eye Drop] Levothyroxine Sodium [Synthroid] 75 mcg PO DAILY 12/03/18 05/21/21 History Timolol 0.5% Ophth Soln [Timoptic 1 drop LEFT EYE DAILY 03/28/21 05/21/21 History 0.5% Ophth Soln] Allergies Allergy/AdvReac Type Severity Reaction Status Date / Time codeine Allergy Itching Verified 05/21/21 18:53 Physical Exam Vitals: Vital Signs Temp Pulse Resp BP Pulse Ox 05/24/21 14:57 98.3 F 95 18 101/70 97 05/24/21 07:46 98.2 F 98 16 104/69 91 L 05/24/21 01:06 97.1 F L 100 15 95/62 96 05/23/21 20:00 122 H 16 05/23/21 18:45 97.6 F 122 H 14 118/75 98 Intake and Output 05/24/21 05/24/21 05/24/21 06:59 14:59 22:59 Other: Voiding Method Diaper External Catheter # Voids 1 # Bowel Movements 1 Results CBC & Chem 7: 05/25/21 06:01 05/25/21 06:01 Labs: Abnormal Lab Results - Last 24 Hours (Table) 05/24/21 05/24/21 Range/Units 06:39 06:39 WBC 12.75 H (4.50-10.00) X 10*3/uL Hgb 9.1 L (12.0-15.0) g/dL Hct 30.7 L (37.2-46.3) % MCV 73.3 L (80.0-97.0) fL MCH 21.7 L (27.0-32.0) pg MCHC 29.6 L (32.0-37.0) g/dL RDW 20.6 H (11.5-14.5) % MPV 8.6 L (9.5-12.2) fL Immature Gran # 0.09 H (0.00-0.04) X 10*3/uL Neutrophils # 10.86 H (1.80-7.70) X 10*3/uL Eosinophils # 0.01 L (0.04-0.35) X 10*3/uL Sodium 131 L (135-145) mmol/L Creatinine 0.3 L (0.6-1.5) mg/dL BUN/Creatinine Ratio 70.33 H (12.00-20.00) Ratio Calcium 7.8 L (8.7-10.3) mg/dL Microbiology - Last 24 Hours (Table) 05/21/21 18:50 Urine Culture - Final Urine,Clean Catch
[2021-05-25 12:40] LABS: Basophils # (A) 0.03 X 10*3/uL (0.00-0.10); Basophils % (A) 0.2 %; Eosinophils # (A) 0.02 X 10*3/uL (0.04-0.35); Eosinophils % (A) 0.1 %; Lymphocytes # (A) 0.73 X 10*3/uL (0.90-5.00); Microcytosis (M) 2+; Monocytes # (A) 0.79 X 10*3/uL (0.20-1.00); Monocytes % (A) 5.4 %; Neutrophils # (A) 13.06 X 10*3/uL (1.80-7.70); Neutrophils % (A) 88.6 %
[2021-05-25] MEDS ORDERED: POTASSIUM CHLORIDE ER 20 MEQ TAB.ER PO STA (12:52)
--- NOTE | 2021-05-25 12:56 | P.PN ---
Subjective Progress Note Date: 05/25/21 CHIEF COMPLAINT: Dysuria HISTORY OF PRESENT ILLNESS: Surgical service is following regards to patient's P elvic mass with abscess and fistula between the bladder and sigmoid colon. Patient has Fraser catheter in place that has no urine output. Patient is excreting her urine from the rectum with stool. She is followed by urology and they had recommended a transfer. Apparently patient's sister does not want patient to be transferred. Patient is lying in bed comfortably. She does report abdominal pain when abdomen is palpated or moved. She denies any nausea or vomiting. Surgery for today has been canceled. Awaiting patient's sister's decision regarding surgical intervention. Afebrile. Mild tachycardia. WBC is up from 12.75 to 14.74. Hemoglobin 9.4 sodium 130 potassium 3.2 creatinine 0.31 Patient seen and examined with Dr. graff PHYSICAL EXAM: VITAL SIGNS: Reviewed. GENERAL: Well-developed in no acute distress. HEENT: No sclera icterus. Extraocular movements grossly intact. Moist buccal mucosa. Head is atraumatic, normocephalic. ABDOMEN: Soft. Fullness noted in the pelvic area with palpation with tenderness. NEUROLOGIC: Awake and alert. Confused at times ASSESSMENT: 1. 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 History of recurrent UTIs 3. History of diverticulitis PLAN: -Patient is scheduled for a diverting colostomy on 05/27/[address] Graff discussed case and surgery with patient and patient's sister at the bedside. They are now agreeable to surgery. -Continue antibiotics -Place patient on clear liquid diet Physician Fire Pot Operator note has been reviewed by physician. Signing provider agrees with the documented findings, assessment, and plan of care. Objective - Vital Signs Vital signs: Vital Signs Temp 98.4 F 05/25/21 08:00 Pulse 104 H 05/25/21 08:00 Resp 16 05/25/21 08:00 BP 92/62 05/25/21 08:00 Pulse Ox 94 L 05/25/21 08:00 Intake & Output 05/24/21 05/25/21 05/25/21 18:59 06:59 18:59 Other: Voiding Method Diaper Diaper External Catheter Indwelling Catheter # Bowel Movements 2 - Labs CBC & Chem 7: 05/25/21 06:01 05/25/21 06:01 Labs: Abnormal Lab Results - Last 24 Hours (Table) 05/25/21 05/25/21 Range/Units 06:01 06:01 WBC 14.74 H (4.50-10.00) X 10*3/uL Hgb 9.4 L (12.0-15.0) g/dL Hct 32.5 L (37.2-46.3) % MCV 72.7 L (80.0-97.0) fL MCH 21.0 L (27.0-32.0) pg MCHC 28.9 L (32.0-37.0) g/dL RDW 21.1 H (11.5-14.5) % MPV 8.9 L (9.5-12.2) fL Immature Gran # 0.11 H (0.00-0.04) X 10*3/uL Neutrophils # 13.06 H (1.80-7.70) X 10*3/uL Lymphocytes # 0.73 L (0.90-5.00) X 10*3/uL Eosinophils # 0.02 L (0.04-0.35) X 10*3/uL Sodium 130 L (137-145) mmol/L Potassium 3.2 L (3.5-5.1) mmol/L BUN 20 H (7-17) mg/dL Creatinine 0.31 L (0.52-1.04) mg/dL Glucose 64 L (74-99) mg/dL Calcium 8.0 L (8.4-10.2) mg/dL
--- NOTE | 2021-05-25 14:55 | PN ---
PROGRESS NOTE DATE OF SERVICE: 05/25/2021 REASON FOR FOLLOWUP: Pelvic abscess with a colovesical fistula and diverticulitis. INTERVAL HISTORY: The patient is afebrile. The patient is breathing comfortably. No chest pain or shortness of breath or cough. Abdominal pain is fairly controlled. No vomiting or diarrhea. PHYSICAL EXAMINATION: Blood pressure 92/62 with a pulse of 104, temperature 98.4. She is 94% on room air. General description is an elderly female lying in bed in no distress. Respiratory system: Unlabored breathing, clear to auscultation anteriorly. Heart S1, S2. Regular rate and rhythm. Abdomen soft, mildly distended. No guarding or rigidity. LABS: Hemoglobin is 9.4, white count 14.74. Creatinine 0.31. DIAGNOSTIC IMPRESSION AND PLAN: Patient with a pelvic abscess with diverticulitis and colovesical fistula. Waiting for diverting colostomy and drainage of the abscess. Patient is covered with Zosyn. Antibiotic to be adjusted further based on culture report. Continue with supportive care. MMODL / IJN: [id number] /
--- NOTE | 2021-05-25 16:00 | P.PN ---
Subjective Progress Note Date: 05/25/[address] Fang about this patient's situation. He felt to start a diverting colostomy would be appropriate. He did not feel that anything could be done in the pelvis for many months due to the severity of her disease. This would at least divert the stool from her bladder. I explained her realistically if her bladder did not heal with this type of treatment she may end up with a cystectomy which I doubt this patient would want. I did discuss with this patient the situation and at present she will do liberate him to whether she wishes to proceed with a colostomy. Objective - Vital Signs Vital signs: Vital Signs Temp 98.1 F 05/25/21 14:00 Pulse 95 05/25/21 14:00 Resp 16 05/25/21 14:00 BP 100/67 05/25/21 14:00 Pulse Ox 98 05/25/21 14:00 Intake & Output 05/24/21 05/25/21 05/25/21 18:59 06:59 18:59 Intake Total 700 Balance 700 Intake: Intake, IV Titration 700 Amount Piperacillin-Tazobactam 3 100 .375 gm In Sodium Chloride 0.9% 100 ml @ 25 mls/hr IVPB Q8H [facility] Rx#: [id number] Sodium Chloride 0.9% 1, 600 000 ml @ 75 mls/hr IV . [id number] [facility] Rx#:[id number] Other: Voiding Method Diaper Diaper Incontinent External Catheter Indwelling Catheter # Bowel Movements 2 - Labs CBC & Chem 7: 05/25/21 06:01 05/25/21 06:01 Labs: Abnormal Lab Results - Last 24 Hours (Table) 05/25/21 05/25/21 Range/Units 06:01 06:01 WBC 14.74 H (4.50-10.00) X 10*3/uL Hgb 9.4 L (12.0-15.0) g/dL Hct 32.5 L (37.2-46.3) % MCV 72.7 L (80.0-97.0) fL MCH 21.0 L (27.0-32.0) pg MCHC 28.9 L (32.0-37.0) g/dL RDW 21.1 H (11.5-14.5) % MPV 8.9 L (9.5-12.2) fL Immature Gran # 0.11 H (0.00-0.04) X 10*3/uL Neutrophils # 13.06 H (1.80-7.70) X 10*3/uL Lymphocytes # 0.73 L (0.90-5.00) X 10*3/uL Eosinophils # 0.02 L (0.04-0.35) X 10*3/uL Sodium 130 L (137-145) mmol/L Potassium 3.2 L (3.5-5.1) mmol/L BUN 20 H (7-17) mg/dL Creatinine 0.31 L (0.52-1.04) mg/dL Glucose 64 L (74-99) mg/dL Calcium 8.0 L (8.4-10.2) mg/dL
[2021-05-25] MEDS: ACETAMINOPHEN TAB 325 MG TAB PO PRN ×2 (16:19→22:45)
[2021-05-25] MEDS ORDERED: Magnesium Replacement Protocol 1 EACH MISC MISCELLANE PRN (19:43)
[2021-05-25] MEDS ORDERED: Potassium Replacement Protocol 1 EACH MISC MISCELLANE PRN (19:43)
[2021-05-25] MEDS: LATANOPROST 0.005% OPHTH DROPS 2.5 ML BTL LEFT EYE SCH (20:36)
--- NOTE | 2021-05-25 20:58 | PN ---
PROGRESS NOTE DATE OF SERVICE: 05/25/2021. This 75-year-old woman who was admitted with recurrent UTI and acute UTI with sepsis also had significant pelvic mass. The patient's white count is elevated at 14.74, sodium is 130, potassium 3.2 at this time. The patient is on broad-spectrum IV antibiotics in the form of IV Zosyn at this time. The cultures are negative so far. Infectious Disease is following the patient closely. The patient has a colovesical fistula and possible diverticulitis also. Surgery is following the patient closely as well. Urology is following the patient closely. The patient has refused surgery before. No chest pain. No palpitations. No fever. PHYSICAL EXAMINATION: Alert and oriented x1. Pulse 104, blood pressure 100/67, respirations 16, temperature 98.1, pulse ox 98% on room air. HEENT: Conjunctivae normal. NECK: No jugular venous distention. CARDIOVASCULAR: S1, S2 muffled. RESPIRATION: Breath sounds diminished at the bases. A few scattered rhonchi and crackles. ABDOMEN: Soft. Mild diffuse discomfort. LEGS: No edema. No swelling. NERVOUS SYSTEM: Diffusely weak. LABS: WBC 14.3, hemoglobin 9.4. Sodium 130, potassium 3.2. ASSESSMENT: 1. Acute urinary tract infection with sepsis, possibly present on admission. 2. Abnormal bladder with a complex lesion with multiple communications and colovesical fistula with adjacent sigmoid colon multiple fistula and possibly with pelvic abscess. 3. Possible diverticulitis, acute. 4. Hypovolemic hyponatremia. 5. Macrocytic anemia with possible iron deficiency anemia. 6. Mild toxic encephalopathy secondary to acute urinary tract infection and sepsis. 7. Weakness with frequent falls. 8. Gait dysfunction. 9. Legal blindness. 10.Hypothyroidism. 11.History of hypoglycemia. 12.Gastrointestinal prophylaxis. 13.Deep vein thrombosis prophylaxis. 14.Increased white count. 15.Anemia of chronic disease. 16.Mild protein-calorie malnutrition with body mass index of 19. 17.NO CODE, NO CPR, NO VENT. RECOMMENDATIONS AND DISCUSSION: I recommend to continue current medications, continue with symptomatic treatment. Continue with the broad-spectrum IV antibiotics. Possible diverting colostomy by Surgery. Otherwise, continue the antibiotics. Infectious Disease, Surgery and Urology are following the patient closely. I would also supplement potassium and magnesium. Repeat labs also. See orders for further details. Guarded prognosis. Further recommendations to follow. MMODL / IJN: [id number] /
[2021-05-26] MEDS: SODIUM CHLORIDE 0.9% 1,000 ML IV SCH ×2 (00:49→16:46)
[2021-05-26] MEDS: PIPERACILLIN-TAZOBACTAM 3.375 GM in SODIUM CHLORIDE 0.9% 100 ML IVPB SCH ×3 (05:12→20:41)
[2021-05-26] MEDS: LEVOTHYROXINE 75 MCG TAB PO SCH (05:31)
[2021-05-26] MEDS: PANTOPRAZOLE 40 MG TABLET PO SCH (07:18)
[2021-05-26] MEDS: TIMOLOL 0.5% OPHTH DROPS 5 ML BTL LEFT EYE SCH (07:18)
--- NOTE | 2021-05-26 09:47 | P.PN ---
Subjective Progress Note Date: 05/26/21 CHIEF COMPLAINT: Dysuria HISTORY OF PRESENT ILLNESS: Surgical service is following regards to patient's P elvic mass with abscess and fistula between the bladder and sigmoid colon. Patient has Fraser catheter in place that has minimal urine output. Patient is excreting her urine from the rectum with stool. Denies any nausea or vomiting. Does report abdominal pain mostly with movement. Afebrile. Mild tachycardia. CBC and BMP pending Patient seen and examined with Dr. graff PHYSICAL EXAM: VITAL SIGNS: Reviewed. GENERAL: Well-developed in no acute distress. HEENT: No sclera icterus. Extraocular movements grossly intact. Moist buccal mucosa. Head is atraumatic, normocephalic. ABDOMEN: Soft. Fullness noted in the pelvic area with palpation with tenderness. NEUROLOGIC: Awake and alert. Confused at times ASSESSMENT: 1. 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 History of recurrent UTIs 3. History of diverticulitis 4. Hypokalemia patient received potassium supplement yesterday. PLAN: -Patient is scheduled for a diverting colostomy on 05/27/[address] Graff discussed case and surgery with patient and patient's sister at the bedside. They are now agreeable to surgery. -Continue antibiotics -Clear liquid diet for today and then nothing by mouth after midnight Physician Federal Judge note has been reviewed by physician. Signing provider agrees with the documented findings, assessment, and plan of care. Objective - Vital Signs Vital signs: Vital Signs Temp 98.2 F 05/26/21 08:00 Pulse 107 H 05/26/21 08:00 Resp 16 05/26/21 08:00 BP 196/64 05/26/21 08:00 Pulse Ox 98 05/26/21 08:00 Intake & Output 05/25/21 05/26/21 05/26/21 18:59 06:59 18:59 Intake Total 700 120 Balance 700 120 Intake: Intake, IV Titration 700 Amount Piperacillin-Tazobactam 3 100 .375 gm In Sodium Chloride 0.9% 100 ml @ 25 mls/hr IVPB Q8H [facility] Rx#: [id number] Sodium Chloride 0.9% 1, 600 000 ml @ 75 mls/hr IV . [id number] [facility] Rx#:[id number] Oral 120 Other: Voiding Method Incontinent Incontinent # Voids 1 # Bowel Movements 1 - Labs CBC & Chem 7: 05/25/21 06:01 05/25/21 06:01 Labs: Abnormal Lab Results - Last 24 Hours (Table) 05/25/21 Range/Units 06:01 WBC 14.74 H (4.50-10.00) X 10*3/uL Hgb 9.4 L (12.0-15.0) g/dL Hct 32.5 L (37.2-46.3) % MCV 72.7 L (80.0-97.0) fL MCH 21.0 L (27.0-32.0) pg MCHC 28.9 L (32.0-37.0) g/dL RDW 21.1 H (11.5-14.5) % MPV 8.9 L (9.5-12.2) fL Immature Gran # 0.11 H (0.00-0.04) X 10*3/uL Neutrophils # 13.06 H (1.80-7.70) X 10*3/uL Lymphocytes # 0.73 L (0.90-5.00) X 10*3/uL Eosinophils # 0.02 L (0.04-0.35) X 10*3/uL Microbiology - Last 24 Hours (Table) 05/24/21 18:00 Blood Culture - Preliminary Blood No Growth after 24 hours
[2021-05-26 11:41] LABS: HCT 31.6 % (37.2-46.3); HGB 9.1 g/dL (12.0-15.0); MCH 21.2 pg (27.0-32.0); MCHC 28.8 g/dL (32.0-37.0); MCV 73.5 fL (80.0-97.0); Mean Platelet Volume 8.9 fL (9.5-12.2); Platelet Count 199 X 10*3/uL (140-440); RDW 21.2 % (11.5-14.5); WBC 15.65 X 10*3/uL (4.50-10.00)
[2021-05-26 13:18] LABS: African American GFR (CKD) 150.4 (60.0-200.0); Anion Gap 11.6 mmol/L (4.00-12.00); Blood Urea Nitrogen 17.6 mg/dL (9.0-27.0); Calcium 7.8 mg/dL (8.7-10.3); Carbon Dioxide 21.4 mmol/L (21.6-31.8); Non-African American GFR(CKD) 129.8 (60.0-200.0); Potassium 3.9 mmol/L (3.5-5.5)
[2021-05-26 13:25] LABS: Basophils # (A) 0.02 X 10*3/uL (0.00-0.10); Basophils % (A) 0.1 %; Crenated RBC 2+; Eosinophils # (A) 0.02 X 10*3/uL (0.04-0.35); Eosinophils % (A) 0.1 %; Lymphocytes # (A) 0.67 X 10*3/uL (0.90-5.00); Lymphocytes % (A) 4.3 %; Microcytosis (M) 2+; Monocytes # (A) 0.84 X 10*3/uL (0.20-1.00); Monocytes % (A) 5.4 %; Neutrophils # (A) 13.98 X 10*3/uL (1.80-7.70); Neutrophils % (A) 89.3 %
[2021-05-26 13:33] VITALS: BMI 19.0
[2021-05-26] MEDS: LATANOPROST 0.005% OPHTH DROPS 2.5 ML BTL LEFT EYE SCH (20:41)
--- NOTE | 2021-05-26 21:13 | PN ---
PROGRESS NOTE DATE OF SERVICE: 05/26/2021. This 75-year-old woman was admitted with UTI and pelvic mass, had multiple fistula. The patient is complaining of abdominal pain and some distention also. Diverting colostomy being planned by surgery and Urology. Infectious Disease following the patient closely. The cultures are negative so far. PAST MEDICAL HISTORY: Reviewed. REVIEW OF SYSTEMS: Cardiovascular system: No angina. Respiration: As mentioned earlier. GI as mentioned earlier. : No dysuria. Nervous system: No focal deficits. CURRENT MEDICATIONS: Reviewed and include: Tylenol, Xalatan, Synthroid, magnesium, Narcan, IV Zosyn. Doses reviewed. PHYSICAL EXAMINATION: Patient is alert, oriented times three. Pulse is 100. Blood pressure 102/60, respirations 16, temperature 98.2, pulse ox 97% on room air. HEENT: Conjunctivae normal. Neck: No JVD. Cardiovascular: S1, S2, muffled. No S3, no S4. Respiratory: Diminished breath sounds at the bases. A few scattered rhonchi. Abdomen: Soft. Mild diffuse tenderness. Legs are no edema. No swelling. Nervous system: No focal deficits. LABS: WBC 15.2, hemoglobin 9.9. Sodium 130, potassium 3.9. ASSESSMENT: 1. Acute urinary tract infection with sepsis possibly present on admission. 2. Abdominal bladder with complex lesion with multiple communications and colovesical fistula and colon with multiple fistula and possibly with pelvic abscess. 3. Possible diverticulitis, acute. 4. Hypovolemic hyponatremia. 5. Macrocytic anemia with possible iron deficiency anemia. 6. Change in mental status, acute metabolic toxic encephalopathy with possibly secondary to sepsis. 7. Weakness and frequent falls. 8. Gait dysfunction. 9. Legal blindness. 10.Hypothyroidism. 11.History of hypoglycemia. 12.Gastrointestinal prophylaxis. 13.Deep vein thrombosis prophylaxis. 14.Increased WBC. 15.Anemia of chronic disease. 16.Mild protein calorie malnutrition, body mass index 19. 17.NO CODE, NO CPR, NO VENT. RECOMMENDATIONS AND DISCUSSION: Continue current medications, and continue symptomatic treatment, continue the antibiotics. Continue with monitoring. White count is still elevated. The lytes are being corrected. I would recommend repeat labs and closely follow with multiple consultants and surgery. Diverting colostomy is the plan, but however prognosis extremely guarded because of multiple complex medical issues. Further recommendations to follow. MMODL / IJN: [id number] / MTDLise
--- NOTE | 2021-05-26 23:01 | PN ---
PROGRESS NOTE DATE OF SERVICE: 05/26/2021 REASON FOR FOLLOWUP: Pelvic abscess from perforated diverticulitis and colovesical fistula. INTERVAL HISTORY: The patient is afebrile, breathing comfortably. The patient's abdominal pain is currently controlled. No chest pain, shortness of breath or cough. No vomiting or diarrhea. PHYSICAL EXAMINATION: Blood pressure 102/68 with a pulse of 100, temperature 98.1. She is 97% on room air. General description is an elderly female lying in bed in no distress. Respiratory system: Unlabored breathing, decreased breath sounds in the base. No wheeze. Heart S1, S2. Regular rate and rhythm. Abdomen soft, mildly tender. No guarding or rigidity. Extremities no edema of the feet. LABS: Hemoglobin is 9.1, white count 15.65, creatinine 0.2. DIAGNOSTIC IMPRESSION AND PLAN: Patient with a pelvic abscess from perforated diverticulitis with a colovesical fistula, waiting for surgery. Covered with Zosyn. Monitor clinical course closely. MMODL / IJN: [id number] /
[2021-05-27] MEDS: PIPERACILLIN-TAZOBACTAM 3.375 GM in SODIUM CHLORIDE 0.9% 100 ML IVPB SCH ×3 (04:17→22:32)
[2021-05-27] MEDS: SODIUM CHLORIDE 0.9% 1,000 ML IV SCH ×2 (04:17→17:00)
[2021-05-27] MEDS: LEVOTHYROXINE 75 MCG TAB PO SCH (06:05)
[2021-05-27 06:37] LABS: Anisocytosis Slight; Basophils % (A) 0 %; Eosinophils % (A) 0 %; HCT 34.8 % (34.0-46.0); HGB 10.2 gm/dL (11.4-16.0); Hypochromasia Marked; Lymphocytes # (A) 0.9 k/uL (1.0-4.8); Lymphocytes % (A) 6 %; MCH 21.9 pg (25.0-35.0); MCHC 29.3 g/dL (31.0-37.0); MCV 74.7 fL (80.0-100.0); Mean Platelet Volume 7.5; Microcytosis Moderate; Monocytes # (A) 0.5 k/uL (0-1.0); Monocytes % (A) 3 %; Neutrophils # (A) 14.1 k/uL (1.3-7.7); Neutrophils % (A) 90 %; Platelet Count 224 k/uL (150-450); RBC 4.67 m/uL (3.80-5.40); RDW 18.9 % (11.5-15.5); WBC 15.7 k/uL (3.8-10.6)
[2021-05-27 06:47] LABS: African American GFR (CKD) >90 (>60 ml/min/1.73 sqM); Anion Gap 5 mmol/L; Blood Urea Nitrogen 21 mg/dL (7-17); Calcium 8.1 mg/dL (8.4-10.2); Carbon Dioxide 24 mmol/L (22-30); Chloride 103 mmol/L (98-107); Glucose 91 mg/dL (74-99); Non-African American GFR(CKD) >90 (>60 ml/min/1.73 sqM); Potassium 4.1 mmol/L (3.5-5.1); Sodium 132 mmol/L (137-145)
[2021-05-27] MEDS: PANTOPRAZOLE 40 MG TABLET PO SCH (07:49)
[2021-05-27] MEDS: TIMOLOL 0.5% OPHTH DROPS 5 ML BTL LEFT EYE SCH (07:51)
--- NOTE | 2021-05-27 08:53 | XR ---
EXAMINATION TYPE: XR chest 1V portable DATE OF EXAM: 05/27/2021 COMPARISON: 03/28/2021 HISTORY: Shortness of breath TECHNIQUE: Single frontal view of the chest is obtained. FINDINGS: Hyperinflation. There is blunting of the costophrenic angles which could represent pleural thickening or tiny effusions. Appears to be a soft tissue fold overlying the right hemithorax with n o definite pneumothorax. Underlying COPD noted. Biapical pleural thickening. Heart size normal. Surgi hunter clips right upper quadrant. Atherosclerotic change aorta. IMPRESSION: COPD. Correlate for ascending aortic aneurysm.
[2021-05-27 09:23] LABS: HGB 9.5 g/dL (12.0-15.0); MCH 20.9 pg (27.0-32.0); MCHC 28.8 g/dL (32.0-37.0); MCV 72.7 fL (80.0-97.0); Platelet Count 206 X 10*3/uL (140-440); RBC 4.54 X 10*6/uL (4.10-5.20); RDW 21.8 % (11.5-14.5); WBC 16.89 X 10*3/uL (4.50-10.00)
[2021-05-27] MEDS ORDERED: LACTATED RINGERS 1,000 ML IV ONE (09:33)
[2021-05-27] MEDS ORDERED: ONDANSETRON 4 MG/2 ML VIAL IVP ONE (09:36)
[2021-05-27] MEDS ORDERED: ONDANSETRON 4 MG/2 ML VIAL ONE (09:40)
[2021-05-27] MEDS ORDERED: LIDOCAINE 1% INJ 10MG/ML (20 ML MDV) ONE (11:49)
[2021-05-27] MEDS ORDERED: PROPOFOL 10 MG/ML 20 ML VIAL IV ONE (11:49)
[2021-05-27] MEDS ORDERED: fentaNYL (PF) 50 MCG/ML 2 ML AMP ONE (11:49)
[2021-05-27] MEDS ORDERED: ROCURONIUM 10 MG/ML (5 ML VIAL) IV ONE (11:49)
[2021-05-27] MEDS ORDERED: GLYCOPYRROLATE 0.2 MG/ML 2 ML VIAL ONE (11:49)
[2021-05-27] MEDS ORDERED: SUCCINYLCHOLINE CHLORIDE 100 MG/5 ML SYR IV ONE (11:49)
[2021-05-27] MEDS ORDERED: PHENYLEPHRINE-0.9% NACL SYG 1,000 MCG/10 ML SYRINGE ONE (11:49)
[2021-05-27] MEDS ORDERED: NEOSTIGMINE 1 MG/ML 10 ML VIAL ONE (11:49)
--- NOTE | 2021-05-27 12:59 | P.OP ---
Date of Procedure: 05/27/21 Preoperative Diagnosis: Diverticulitis with colovesical fistula Postoperative Diagnosis: Diverticulitis with colovesical fistula Procedure(s) Performed: Diverting colostomy Anesthesia: ASHLEE Surgeon: Winston Fang Estimated Blood Loss (ml): 10 Pathology: none sent Condition: stable Disposition: PACU Description of Procedure: Patient's placed on the operative table in supine position. She received general endotracheal tube anesthesia. Her abdomen was prepped and draped usual fashion. A upper midline skin incision was made. Which causes dissected through the abdominal wall. The transverse colon was visualized. The omentum was divided into the device. The transverse colon was then divided with the LEXY stapler. The suitable spot for the colostomy was performed in the left upper quadrant. Using a pair of Pratima clamps the skin was grasped and then using cautery the colostomy site was performed. The colon was then brought up through the colostomy site. The fascia was then closed with looped #1 PDS suture. Skin was closed lakshmi. Colostomy matured with 3-0 Vicryl suture. Patient top she will well and was sent to recovery room in stable condition.
[2021-05-27 13:43] LABS: Basophils # (A) 0.05 X 10*3/uL (0.00-0.10); Basophils % (A) 0.3 %; Eosinophils # (A) 0.01 X 10*3/uL (0.04-0.35); Eosinophils % (A) 0.1 %; Lymphocytes % (A) 5.9 %; Monocytes # (A) 0.97 X 10*3/uL (0.20-1.00); Monocytes % (A) 5.7 %; Neutrophils # (A) 14.73 X 10*3/uL (1.80-7.70); Neutrophils % (A) 87.2 %
[2021-05-27] MEDS ORDERED: SODIUM CHLORIDE 0.9% 1,000 ML IV ONE (13:55)
[2021-05-27 14:09] LABS: African American GFR (CKD) 131.6 (60.0-200.0); Anion Gap 11.4 mmol/L (4.00-12.00); Blood Urea Nitrogen 19.8 mg/dL (9.0-27.0); Calcium 8.1 mg/dL (8.7-10.3); Carbon Dioxide 21.6 mmol/L (21.6-31.8); Non-African American GFR(CKD) 113.6 (60.0-200.0)
[2021-05-27] MEDS: LATANOPROST 0.005% OPHTH DROPS 2.5 ML BTL LEFT EYE SCH (21:41)
[2021-05-27] MEDS: ACETAMINOPHEN TAB 325 MG TAB PO PRN (22:39)
[2021-05-28] MEDS: PIPERACILLIN-TAZOBACTAM 3.375 GM in SODIUM CHLORIDE 0.9% 100 ML IVPB SCH ×3 (05:29→20:55)
[2021-05-28] MEDS: LEVOTHYROXINE 75 MCG TAB PO SCH (05:30)
[2021-05-28] MEDS: ACETAMINOPHEN TAB 325 MG TAB PO PRN (05:44)
--- NOTE | 2021-05-28 08:09 | PN ---
PROGRESS NOTE DATE OF SERVICE: 05/27/2021 REASON FOR FOLLOWUP: Diverticulitis with colovesical fistula. INTERVAL HISTORY: Patient was taken to the OR. The patient is status post laparotomy with diverting colostomy. No mention of any cultures. The patient tolerated the procedure. She was seen in the postop area complaining of some abdominal pain. No chest pain, shortness of breath or cough. No vomiting or diarrhea. EXAMINATION: BP 93/66, pulse of 83, temperature of 97.2. She is 96% on room air. General description is an elderly female lying in bed in no distress. Respiratory system: Unlabored breathing, decreased breath sounds in the bases. No wheeze. Heart S1, S2. Regular rate and rhythm. Abdomen: Soft, mildly tender. No guarding, no rigidity. LABS: Hemoglobin 9.8, white count 16.9, creatinine 0.3. DIAGNOSTIC IMPRESSION AND PLAN: Patient with complicated diverticulitis, diverticular abscess and colovesical fistula status post diverting colostomy. No mention of any cultures. Patient is empirically covered with Zosyn to continue while monitoring clinical course closely. Continue supportive care. MMODL / IJN: [id number] /
[2021-05-28] MEDS: TIMOLOL 0.5% OPHTH DROPS 5 ML BTL LEFT EYE SCH (09:19)
[2021-05-28] MEDS: SODIUM CHLORIDE 0.9% 1,000 ML IV SCH (09:19)
[2021-05-28] MEDS: PANTOPRAZOLE 40 MG TABLET PO SCH (09:19)
--- NOTE | 2021-05-28 09:45 | P.PN ---
Subjective Progress Note Date: 05/28/21 Principal diagnosis: Diverting ostomy Patient complaining of mild pain. Some nausea. No vomiting. No ostomy output thus far. Remains nothing by mouth. Morning labs are pending. She is afebrile. Objective - Vital Signs Vital signs: Vital Signs Temp 97.8 F 05/28/21 07:35 Pulse 99 05/28/21 07:35 Resp 14 05/28/21 02:00 BP 88/64 05/28/21 07:35 Pulse Ox 98 05/28/21 07:35 Intake & Output 05/27/21 05/28/21 05/28/21 18:59 06:59 18:59 Intake Total 1500 1100 Output Total 12 Balance 1488 1100 Weight 58.513 kg Intake: IV 1500 Intake, IV Titration 1100 Amount Piperacillin-Tazobactam 3 200 .375 gm In Sodium Chloride 0.9% 100 ml @ 25 mls/hr IVPB Q8H PENDING SALE TO [facility] Rx#: [id number] Sodium Chloride 0.9% 1, 900 000 ml @ 75 mls/hr IV . [id number] PENDING SALE TO [facility] Rx#:[id number] Output: Urine 2 Estimated Blood Loss 10 Other: Voiding Method Diaper Diaper Incontinent Incontinent Indwelling Catheter Indwelling Catheter # Voids 1 - Exam Abdomen: Soft, mild distention, ostomy viable, incision clean and dry, mild tenderness - Labs CBC & Chem 7: 05/27/21 06:05 05/27/21 06:05 Labs: Abnormal Lab Results - Last 24 Hours (Table) 05/27/21 05/27/21 Range/Units 06:05 06:05 Immature Gran # 0.13 H (0.00-0.04) X 10*3/uL Neutrophils # 14.73 H (1.80-7.70) X 10*3/uL Eosinophils # 0.01 L (0.04-0.35) X 10*3/uL Creatinine 0.3 L (0.6-1.5) mg/dL BUN/Creatinine Ratio 66.00 H (12.00-20.00) Ratio Calcium 8.1 L (8.7-10.3) mg/dL Microbiology - Last 24 Hours (Table) 05/24/21 18:00 Blood Culture - Preliminary Blood No Growth after 72 hours Assessment and Plan (1) Colovesical fistula Narrative/Plan: Patient stable after diverting ostomy yesterday. Keep nothing by mouth for now until bowel function improved. Gradually increase activity as pain improves. Check morning labs. Current Visit: Yes Status: Acute Code(s): N32.1 - VESICOINTESTINAL FISTULA SNOMED Code(s): 34344454
--- NOTE | 2021-05-28 12:31 | P.PN ---
Subjective Progress Note Date: 05/27/21 Principal diagnosis: UTI/sepsis Possible acute diverticulitis Colovesical fistula/pelvic abscess Hyponatremia 75-year-old female patient admitted with UTI and pelvic mass and found to have multiple fistula; urology and surgery on board and planning diverting colostomy Objective - Vital Signs Vital signs: Vital Signs Temp 97.6 F 05/27/21 09:02 Pulse 99 05/27/21 09:02 Resp 14 05/27/21 09:02 BP 99/59 05/27/21 09:02 Pulse Ox 96 05/27/21 09:02 Intake & Output 05/26/21 05/27/21 05/27/21 18:59 06:59 18:59 Output Total 300 50 Balance -300 -50 Weight 58.513 kg Output: Urine 300 50 Other: Voiding Method Diaper Diaper Incontinent Incontinent Indwelling Catheter Indwelling Catheter # Bowel Movements 4 - Exam - Constitutional General appearance: Present: average body habitus, cooperative, no acute distress - EENT Eyes: Present: anicteric sclerae, EOMI, PERRLA, normal appearance ENT: Present: hearing grossly normal, normal oropharynx Ears: bilateral: normal - Neck Neck: Present: normal ROM. Absent: lymphadenopathy, rigidity, thyromegaly Carotids: negative: bruit present Thyroid: bilateral: normal size, negative: enlarged, nodule - Respiratory Respiratory: bilateral: CTA, negative: rales, rhonchi, wheezing - Cardiovascular Rhythm: regular Heart sounds: normal: S1, S2 Abnormal Heart Sounds: Absent: systolic murmur, diastolic murmur - Gastrointestinal General gastrointestinal: Present: normal bowel sounds, soft. Absent: distended, organomegaly, tenderness - Genitourinary Genitourinary Comment(s): deferred - Integumentary Integumentary: Present: normal turgor. Absent: jaundiced, rash, ulcer - Neurologic Neurologic: Present: CNII-XII intact. Absent: focal deficits - Musculoskeletal Musculoskeletal: Present: gait normal, strength equal bilaterally - Psychiatric Psychiatric: Present: A&O x's 3, appropriate affect, intact judgment & insight - Labs CBC & Chem 7: 05/27/21 06:05 05/27/21 06:05 Labs: Abnormal Lab Results - Last 24 Hours (Table) 05/26/21 05/26/21 05/27/21 Range/Units 07:05 07:05 06:05 WBC 15.65 H 15.7 H (4.50-10.00) X 10*3/uL Hgb 9.1 L 10.2 L (12.0-15.0) g/dL Hct 31.6 L (37.2-46.3) % MCV 73.5 L 74.7 L (80.0-97.0) fL MCH 21.2 L 21.9 L (27.0-32.0) pg MCHC 28.8 L 29.3 L (32.0-37.0) g/dL RDW 21.2 H 18.9 H (11.5-14.5) % MPV 8.9 L (9.5-12.2) fL Immature Gran # 0.12 H (0.00-0.04) X 10*3/uL Neutrophils # 13.98 H 14.1 H (1.80-7.70) X 10*3/uL Lymphocytes # 0.67 L 0.9 L (0.90-5.00) X 10*3/uL Eosinophils # 0.02 L (0.04-0.35) X 10*3/uL Sodium 134 L (135-145) mmol/L Carbon Dioxide 21.4 L (21.6-31.8) mmol/L BUN (7-17) mg/dL Creatinine 0.2 L (0.6-1.5) mg/dL BUN/Creatinine Ratio 88.00 H (12.00-20.00) Ratio Glucose 61 L (70-110) mg/dL Calcium 7.8 L (8.7-10.3) mg/dL 05/27/21 05/27/21 Range/Units 06:05 06:05 WBC 16.89 H (4.50-10.00) X 10*3/uL Hgb 9.5 L (12.0-15.0) g/dL Hct 33.0 L (37.2-46.3) % MCV 72.7 L (80.0-97.0) fL MCH 20.9 L (27.0-32.0) pg MCHC 28.8 L (32.0-37.0) g/dL RDW 21.8 H (11.5-14.5) % MPV 9.0 L (9.5-12.2) fL Immature Gran # (0.00-0.04) X 10*3/uL Neutrophils # (1.80-7.70) X 10*3/uL Lymphocytes # (0.90-5.00) X 10*3/uL Eosinophils # (0.04-0.35) X 10*3/uL Sodium 132 L (135-145) mmol/L Carbon Dioxide (21.6-31.8) mmol/L BUN 21 H (7-17) mg/dL Creatinine 0.34 L (0.6-1.5) mg/dL BUN/Creatinine Ratio (12.00-20.00) Ratio Glucose (70-110) mg/dL Calcium 8.1 L (8.7-10.3) mg/dL Microbiology - Last 24 Hours (Table) 05/24/21 18:00 Blood Culture - Preliminary Blood No Growth after 48 hours Assessment and Plan Assessment: 1. Acute UTI/sepsis; present on admission - Patient remains on IV Zosyn; ID on board and we will recommend further treatment once cultures are available 2. Acute complicated diverticulitis/Pelvic abscess/:Colovesical fistula - Patient is status post diverting colostomy; remains on IV antibiotics in form of Zosyn; await further recommendations from surgery and ID 3. Hypokalemia; we will supplement with potassium replacement protocol 4. Hyponatremia; improving; sodium level of 136 this morning 5. Altered mental status/toxic metabolic encephalopathy 6. Hypothyroidism; levothyroxine 75 MCG daily DVT prophylaxis; SCDs CODE STATUS; DO NOT RESUSCITATE
[2021-05-28] MEDS: LATANOPROST 0.005% OPHTH DROPS 2.5 ML BTL LEFT EYE SCH (20:56)
[2021-05-28] MEDS ORDERED: FLUCONAZOLE 100 MG TAB PO ONE (21:02)
--- NOTE | 2021-05-28 22:15 | PN ---
PROGRESS NOTE DATE OF SERVICE: 05/28/2021 REASON FOR FOLLOWUP: Complicated diverticulitis with colovesical fistula. INTERVAL HISTORY: Patient is afebrile. The patient is breathing comfortably. Hemodynamically stable. Complaining of some abdominal pain. No . No vomiting. No output in the bag. PHYSICAL EXAMINATION: Blood pressure 92/65, pulse of 89, temperature 99.7. She is 97% on room air. General description is an elderly female lying in bed in no distress. Respiratory system: Unlabored breathing, decreased intensity of breath sounds. No wheeze. Heart S1, S2. Regular rate and rhythm. Abdomen: Soft. Mildly tenderness. LABS: White count remains to be elevated. DIAGNOSTIC IMPRESSION AND PLAN: Patient with complicated diverticulitis with peridiverticular abscess and colovesical fistula status post diverting colostomy. No OR cultures. The patient is broadly covered with Zosyn. Still has elevated white count. We will add Diflucan to cover for the monitor clinical course closely. Continue supportive care. MMODL / IJN: [id number] /
[2021-05-28] MEDS: ONDANSETRON 4 MG/2 ML VIAL IVP PRN (22:54)
[2021-05-29] MEDS: SODIUM CHLORIDE 0.9% 1,000 ML IV SCH ×2 (00:32→09:17)
[2021-05-29] MEDS: LEVOTHYROXINE 75 MCG TAB PO SCH (05:53)
[2021-05-29] MEDS: ACETAMINOPHEN TAB 325 MG TAB PO PRN (05:53)
[2021-05-29] MEDS: PIPERACILLIN-TAZOBACTAM 3.375 GM in SODIUM CHLORIDE 0.9% 100 ML IVPB SCH ×3 (05:54→20:04)
[2021-05-29] MEDS: TIMOLOL 0.5% OPHTH DROPS 5 ML BTL LEFT EYE SCH (09:02)
[2021-05-29] MEDS: FLUCONAZOLE 100 MG TAB PO SCH (09:02)
[2021-05-29] MEDS: PANTOPRAZOLE 40 MG TABLET PO SCH (09:02)
[2021-05-29] MEDS ORDERED: KETOROLAC 30 MG/ML 1 ML VIAL IVP STA (09:41)
--- NOTE | 2021-05-29 10:24 | P.PN ---
Subjective Progress Note Date: 05/29/21 Principal diagnosis: Diverting ostomy Patient complaining of lower abdominal fullness. Bladder scan shows over 400 mL. Fraser catheter not functioning well. Some stool-like material noted in new Fraser catheter was placed. Ostomy functioning. Objective - Vital Signs Vital signs: Vital Signs Temp 98.3 F 05/29/21 07:40 Pulse 99 05/29/21 07:40 Resp 22 05/29/21 07:40 BP 111/73 05/29/21 07:40 Pulse Ox 100 05/29/21 07:40 Intake & Output 05/28/21 05/29/21 05/29/21 18:59 06:59 18:59 Output Total 1 235 Balance -1 -235 Output: Urine 235 Uretheral (Fraser) 235 Stool 1 Other: Voiding Method Diaper Diaper Incontinent Incontinent Indwelling Catheter Indwelling Catheter # Bowel Movements 1 - Exam Abdomen: Soft, lower abdominal tenderness and fullness centrally, dressing clean dry - Labs CBC & Chem 7: 05/27/21 06:05 05/27/21 06:05 Labs: Microbiology - Last 24 Hours (Table) 05/24/21 18:00 Blood Culture - Preliminary Blood No Growth after 96 hours Assessment and Plan (1) Colovesical fistula Narrative/Plan: Patient with bladder outlet obstruction likely from particulate matter in bladder fistula. Discussed case with urology. Will begin bladder irrigation. Keep nothing by mouth for now. Current Visit: Yes Status: Acute Code(s): N32.1 - VESICOINTESTINAL FISTULA SNOMED Code(s): 42941228
--- NOTE | 2021-05-29 10:56 | P.PN ---
Subjective Progress Note Date: 05/29/21 the patient is in the hospital for a colovesical fistula. She had a diverting colostomy late last week by .she has had an indwelling catheter but it has not drained well due to either obstruction from fecal material. I suspect the fistula is very large. Dr Patel the patient this morning and w ondered whether the catheter was not functioning.he asked me to reassess.Upon evaluating the patient I exchnaged the catheter to an 18 fr larios and irrigated it. It irrigated freely with fecal content. The is a soft collection of fluid suprapubically that coincides with the ct scan upon admission. Whether this is abscess or bowel I am not certain I spoke with Dr Patel and we feel that a repeat ct scan to assess that area would be appropriate in order to see if this should be drained. This will be ordered and we will follow. This patients situation is difficult aggravated by the fact that the patient doesnt want anything aggressive to be done. Objective - Vital Signs Vital signs: Vital Signs Temp 98.3 F 05/29/21 07:40 Pulse 99 05/29/21 07:40 Resp 22 05/29/21 07:40 BP 111/73 05/29/21 07:40 Pulse Ox 100 05/29/21 07:40 Intake & Output 05/28/21 05/29/21 05/29/21 18:59 06:59 18:59 Output Total 1 235 Balance -1 -235 Output: Urine 235 Uretheral (Larios) 235 Stool 1 Other: Voiding Method Diaper Diaper Incontinent Incontinent Indwelling Catheter Indwelling Catheter # Bowel Movements 1 - Labs CBC & Chem 7: 05/27/21 06:05 05/27/21 06:05 Labs: Microbiology - Last 24 Hours (Table) 05/24/21 18:00 Blood Culture - Preliminary Blood No Growth after 96 hours
[2021-05-29 11:40] LABS: HGB 9.5 g/dL (12.0-15.0); MCH 21.2 pg (27.0-32.0); MCHC 28.8 g/dL (32.0-37.0); MCV 73.7 fL (80.0-97.0); Mean Platelet Volume 9.1 fL (9.5-12.2); Platelet Count 229 X 10*3/uL (140-440); RBC 4.48 X 10*6/uL (4.10-5.20); RDW 22.5 % (11.5-14.5); WBC 18.73 X 10*3/uL (4.50-10.00)
[2021-05-29 12:02] LABS: African American GFR (CKD) 119.8 (60.0-200.0); Anion Gap 14.5 mmol/L (4.00-12.00); BUN/Creat Ratio 73.5 Ratio (12.00-20.00); Blood Urea Nitrogen 29.4 mg/dL (9.0-27.0); Calcium 8.4 mg/dL (8.7-10.3); Carbon Dioxide 18.5 mmol/L (21.6-31.8); Non-African American GFR(CKD) 103.3 (60.0-200.0); Potassium 3.8 mmol/L (3.5-5.5)
[2021-05-29 12:04] LABS: Acanthocytes 2+; Basophils # (A) 0.04 X 10*3/uL (0.00-0.10); Basophils % (A) 0.2 %; Eosinophils # (A) 0.02 X 10*3/uL (0.04-0.35); Eosinophils % (A) 0.1 %; Lymphocytes # (A) 0.87 X 10*3/uL (0.90-5.00); Lymphocytes % (A) 4.6 %; Monocytes # (A) 0.64 X 10*3/uL (0.20-1.00); Monocytes % (A) 3.4 %; Neutrophils # (A) 17.02 X 10*3/uL (1.80-7.70)
[2021-05-29] MEDS: KETOROLAC 30 MG/ML 1 ML VIAL IVP SCH ×2 (12:50→17:12)
[2021-05-29 14:23] LABS: African American GFR (CKD) >90 (>60 ml/min/1.73 sqM); Anion Gap 11 mmol/L; Blood Urea Nitrogen 32 mg/dL (7-17); Calcium 8.5 mg/dL (8.4-10.2); Carbon Dioxide 18 mmol/L (22-30); Chloride 107 mmol/L (98-107); Glucose 91 mg/dL (74-99); Non-African American GFR(CKD) >90 (>60 ml/min/1.73 sqM); Potassium 3.6 mmol/L (3.5-5.1); Sodium 136 mmol/L (137-145)
[2021-05-29] MEDS: ONDANSETRON 4 MG/2 ML VIAL IVP PRN (17:11)
--- NOTE | 2021-05-29 19:14 | P.PN ---
Subjective Progress Note Date: 05/28/21 Principal diagnosis: UTI/sepsis Possible acute diverticulitis Colovesical fistula/pelvic abscess Hyponatremia 75-year-old female patient admitted with UTI and pelvic mass and found to have multiple fistula; urology and surgery on board and planning diverting colostomy Vital signs are reviewed and reveal temperature of 97.8, pulse 99, respiration 14 and blood pressure of 88/64. O2 saturation 98% Patient is admitted with complicated diverticulitis with a diverticular abscess and colovesical fistula; remains on IV antibiotics in form of Zosyn; WBC remain elevated; ID on board and recommending to add IV Diflucan to cover for superimposed fungal infection Objective - Vital Signs Vital signs: Vital Signs Temp 97.7 F 05/28/21 13:46 Pulse 90 05/28/21 13:46 Resp 16 05/28/21 13:46 BP 92/65 05/28/21 13:46 Pulse Ox 97 05/28/21 13:46 Intake & Output 05/27/21 05/28/21 05/28/21 18:59 06:59 18:59 Intake Total 1500 1100 Output Total 12 Balance 1488 1100 Weight 58.513 kg Intake: IV 1500 Intake, IV Titration 1100 Amount Piperacillin-Tazobactam 3 200 .375 gm In Sodium Chloride 0.9% 100 ml @ 25 mls/hr IVPB Q8H [facility] Rx#: [id number] Sodium Chloride 0.9% 1, 900 000 ml @ 75 mls/hr IV . [id number] [facility] Rx#:[id number] Output: Urine 2 Estimated Blood Loss 10 Other: Voiding Method Diaper Diaper Diaper Incontinent Incontinent Incontinent Indwelling Catheter Indwelling Catheter Indwelling Catheter # Voids 1 - Exam - Constitutional General appearance: Present: average body habitus, cooperative, no acute distress - EENT Eyes: Present: anicteric sclerae, EOMI, PERRLA, normal appearance ENT: Present: hearing grossly normal, normal oropharynx Ears: bilateral: normal - Neck Neck: Present: normal ROM. Absent: lymphadenopathy, rigidity, thyromegaly Carotids: negative: bruit present Thyroid: bilateral: normal size, negative: enlarged, nodule - Respiratory Respiratory: bilateral: CTA, negative: rales, rhonchi, wheezing - Cardiovascular Rhythm: regular Heart sounds: normal: S1, S2 Abnormal Heart Sounds: Absent: systolic murmur, diastolic murmur - Gastrointestinal General gastrointestinal: Present: normal bowel sounds, soft. Absent: distended, organomegaly, tenderness - Genitourinary Genitourinary Comment(s): deferred - Integumentary Integumentary: Present: normal turgor. Absent: jaundiced, rash, ulcer - Neurologic Neurologic: Present: CNII-XII intact. Absent: focal deficits - Musculoskeletal Musculoskeletal: Present: gait normal, strength equal bilaterally - Psychiatric Psychiatric: Present: A&O x's 3, appropriate affect, intact judgment & insight - Labs CBC & Chem 7: 05/29/21 08:21 05/29/21 13:50 Labs: Microbiology - Last 24 Hours (Table) 05/24/21 18:00 Blood Culture - Preliminary Blood No Growth after 72 hours Assessment and Plan Assessment: 1. Acute UTI/sepsis; present on admission - Patient remains on IV Zosyn; ID on board and we will recommend further treatment once cultures are available 2. Acute complicated diverticulitis/Pelvic abscess/:Colovesical fistula - Patient is status post diverting colostomy; remains on IV antibiotics in form of Zosyn; await further recommendations from surgery and ID 3. Hypokalemia; we will supplement with potassium replacement protocol 4. Hyponatremia; improving; sodium level of 136 this morning 5. Altered mental status/toxic metabolic encephalopathy 6. Hypothyroidism; levothyroxine 75 MCG daily DVT prophylaxis; SCDs CODE STATUS; DO NOT RESUSCITATE
--- NOTE | 2021-05-29 19:18 | P.PN ---
Subjective Progress Note Date: 05/29/21 Principal diagnosis: UTI/sepsis Possible acute diverticulitis Colovesical fistula/pelvic abscess Hyponatremia 75-year-old female patient admitted with UTI and pelvic mass and found to have multiple fistula; urology and surgery on board and planning diverting colostomy Vital signs are reviewed and reveal temperature of 97.8, pulse 99, respiration 14 and blood pressure of 88/64. O2 saturation 98% Patient is admitted with complicated diverticulitis with a diverticular abscess and colovesical fistula; remains on IV antibiotics in form of Zosyn; WBC remain elevated; ID on board and recommending to add IV Diflucan to cover for superimposed fungal infection 05/29/2021 Patient is seen and evaluated and discussed in great detail with nursing staff; patient is status post diverting colostomy for colovesical fistula Concerned this morning with indwelling Fraser catheter which was not draining for concern for possible obstruction from fecal matter due to large colovesical fistula; urology was consulted and Fraser catheter was exchanged and irrigated Vital signs are stable with temperature of 98.3, pulse 99, respiration 22 and blood pressure 111/73 Detailed discussion about patient with nursing staff; patient continues to refuse care and continuing to ask nursing staff to be left alone; demonstrates signs of uncontrolled pain; we will add morphine 2 mg IV every 4 hours when necessary; we will consult palliative care for clarification of goals of treatment Patient remains on IV Zosyn and Diflucan as recommended by ID Objective - Vital Signs Vital signs: Vital Signs Temp 98.3 F 05/29/21 07:40 Pulse 99 05/29/21 07:40 Resp 22 05/29/21 07:40 BP 111/73 05/29/21 07:40 Pulse Ox 100 05/29/21 07:40 Intake & Output 05/28/21 05/29/21 05/29/21 18:59 06:59 18:59 Output Total 1 235 Balance -1 -235 Output: Urine 235 Uretheral (Fraser) 235 Stool 1 Other: Voiding Method Diaper Diaper Incontinent Incontinent Indwelling Catheter Indwelling Catheter # Bowel Movements 1 - Exam - Constitutional General appearance: Present: average body habitus, cooperative, no acute distress - EENT Eyes: Present: anicteric sclerae, EOMI, PERRLA, normal appearance ENT: Present: hearing grossly normal, normal oropharynx Ears: bilateral: normal - Neck Neck: Present: normal ROM. Absent: lymphadenopathy, rigidity, thyromegaly Carotids: negative: bruit present Thyroid: bilateral: normal size, negative: enlarged, nodule - Respiratory Respiratory: bilateral: CTA, negative: rales, rhonchi, wheezing - Cardiovascular Rhythm: regular Heart sounds: normal: S1, S2 Abnormal Heart Sounds: Absent: systolic murmur, diastolic murmur - Gastrointestinal General gastrointestinal: Present: normal bowel sounds, soft. Absent: distended, organomegaly, tenderness - Genitourinary Genitourinary Comment(s): deferred - Integumentary Integumentary: Present: normal turgor. Absent: jaundiced, rash, ulcer - Neurologic Neurologic: Present: CNII-XII intact. Absent: focal deficits - Musculoskeletal Musculoskeletal: Present: gait normal, strength equal bilaterally - Psychiatric Psychiatric: Present: A&O x's 3, appropriate affect, intact judgment & insight - Labs CBC & Chem 7: 05/29/21 08:21 05/29/21 13:50 Labs: Microbiology - Last 24 Hours (Table) 05/24/21 18:00 Blood Culture - Preliminary Blood No Growth after 96 hours Assessment and Plan Assessment: 1. Acute UTI/sepsis; present on admission - Patient remains on IV Zosyn; ID on board and we will recommend further treatment once cultures are available 2. Acute complicated diverticulitis/Pelvic abscess/:Colovesical fistula - Patient is status post diverting colostomy; remains on IV antibiotics in form of Zosyn; await further recommendations from surgery and ID 3. Hypokalemia; we will supplement with potassium replacement protocol 4. Hyponatremia; improving; sodium level of 136 this morning 5. Altered mental status/toxic metabolic encephalopathy 6. Hypothyroidism; levothyroxine 75 MCG daily DVT prophylaxis; SCDs CODE STATUS; DO NOT RESUSCITATE
[2021-05-29] MEDS: LATANOPROST 0.005% OPHTH DROPS 2.5 ML BTL LEFT EYE SCH (20:04)
--- NOTE | 2021-05-29 22:57 | PN ---
PROGRESS NOTE DATE OF SERVICE: 05/29/2021 REASON FOR FOLLOWUP: Diverticulitis with a colovesical fistula. INTERVAL HISTORY: The patient is afebrile. The patient is currently breathing comfortably. Complaining of some abdominal pain. No nausea. No chest pain, shortness of breath or cough and no diarrhea. PHYSICAL EXAMINATION: Blood pressure 100/65, pulse of 78, temperature 97.2. She is 93% on room air. General description is an elderly female lying in bed in no distress. Respiratory system: Unlabored breathing, clear to auscultation anteriorly. Heart S1, S2. Regular rate and rhythm. Abdomen soft, mildly tender. No guarding or rigidity. LABS: Hemoglobin is , white count of 18.73, creatinine 0.51. DIAGNOSTIC IMPRESSION AND PLAN: Patient with complicated diverticulitis with a chronic abscess and colovesical fistula, status post diverting colostomy. Unfortunately no OR cultures. White count is trending up despite patient being covered with Zosyn and Diflucan. Will repeat a CBC tomorrow. If further worsening, may need to add Gram-positive coverage. Continue with supportive care. MMODL / IJN: [id number] /
[2021-05-29] MEDS ORDERED: KETOROLAC 30 MG/ML 1 ML VIAL ONE (23:03)
[2021-05-30] MEDS ORDERED: HEPARIN SODIUM,PORCINE/PF 5,000 UNIT/0.5 ML SYRINGE SQ ONE (00:16)
[2021-05-30] MEDS ORDERED: HYDROcodone/APAP 10-325MG 1 EACH TAB ONE (00:16)
[2021-05-30] MEDS ORDERED: ACETAMINOPHEN TAB 325 MG TAB ONE (00:16)
[2021-05-30] MEDS: MORPHINE SULFATE 2 MG/ML SYRINGE IVP PRN ×2 (01:44→06:35)
[2021-05-30] MEDS: SODIUM CHLORIDE 0.9% 1,000 ML IV SCH ×2 (03:54→13:43)
[2021-05-30] MEDS: PIPERACILLIN-TAZOBACTAM 3.375 GM in SODIUM CHLORIDE 0.9% 100 ML IVPB SCH ×2 (05:40→14:50)
[2021-05-30] MEDS: KETOROLAC 30 MG/ML 1 ML VIAL IVP SCH ×3 (05:40→13:41)
[2021-05-30] MEDS: LEVOTHYROXINE 75 MCG TAB PO SCH (05:41)
[2021-05-30] MEDS ORDERED: IOPAMIDOL CONTRAST (ORAL USE) VIAL PO PRN (07:51)
[2021-05-30 08:25] VITALS: BP 98/67; PULSE 90; RESP 17; TEMP 96.7
[2021-05-30] MEDS: PANTOPRAZOLE 40 MG TABLET PO SCH (11:00)
[2021-05-30] MEDS: FLUCONAZOLE 100 MG TAB PO SCH (11:01)
[2021-05-30] MEDS: TIMOLOL 0.5% OPHTH DROPS 5 ML BTL LEFT EYE SCH (11:04)
--- NOTE | 2021-05-30 11:31 | P.PN ---
Progress Note - Text Progress Note Date: 05/30/21 The Fraser catheter is intact, draining clear yellow urine without particulate matter. I would recommend that the Fraser catheter remain in place, and irrigated as needed. Per the patient's family member, the patient is undecided whether or not she wishes to undergo any further evaluation or treatment, and she states this is the reason a CT scan was not performed earlier today.
--- NOTE | 2021-05-30 13:35 | P.PN ---
Subjective Progress Note Date: 05/30/21 CHIEF COMPLAINT: Dysuria HISTORY OF PRESENT ILLNESS: Diverticulitis with colovesical fistula status post diverting colostomy. Patient's Fraser catheter was changed to a bigger size per urology yesterday. Patient's urine output per nursing staff still has stool present in it. Patient's ostomy is functioning. She does complain of lower pelvic abdominal pain and bloating. She reports that the pain medication is helping. At this time patient is refusing any further blood draws or CAT scans. She is requesting be placed on hospice. Hospice is on consult. Afebrile. WBC yesterday was 18.73 Patient seen and examined with Dr. graff PHYSICAL EXAM: VITAL SIGNS: Reviewed. GENERAL: Well-developed in no acute distress. HEENT: No sclera icterus. Extraocular movements grossly intact. Moist buccal mucosa. Head is atraumatic, normocephalic. ABDOMEN: Soft. Incisional dressing clean dry and intact. Patient does have abdominal distention in the lower abdomen and pelvic area. NEUROLOGIC: Awake and alert. ASSESSMENT: 1. Diverticulitis with colovesical fistula status post diverting colostomy 2. Pelvic abscess PLAN: -Patient currently nothing by mouth -Patient is refusing blood work and abdominal CAT scan. -Patient is requesting hospice Physician [employer] note has been reviewed by physician. Signing provider agrees with the documented findings, assessment, and plan of care. Objective - Vital Signs Vital signs: Vital Signs Temp 96.7 F L 05/30/21 08:00 Pulse 90 05/30/21 08:00 Resp 17 05/30/21 08:00 BP 98/67 05/30/21 08:00 Pulse Ox 97 05/30/21 08:00 Intake & Output 05/29/21 05/30/21 05/30/21 18:59 06:59 18:59 Output Total 235 341 Balance -235 -341 Output: Urine 235 200 Uretheral (Fraser) 235 Stool 141 Other: Voiding Method Diaper Diaper Incontinent Incontinent Indwelling Catheter Indwelling Catheter - Labs CBC & Chem 7: 05/29/21 08:21 05/29/21 13:50 Labs: Abnormal Lab Results - Last 24 Hours (Table) 05/29/21 05/29/21 05/29/21 Range/Units 08:21 08:21 13:50 WBC 18.73 H (4.50-10.00) X 10*3/uL Hgb 9.5 L (12.0-15.0) g/dL Hct 33.0 L (37.2-46.3) % MCV 73.7 L (80.0-97.0) fL MCH 21.2 L (27.0-32.0) pg MCHC 28.8 L (32.0-37.0) g/dL RDW 22.5 H (11.5-14.5) % MPV 9.1 L (9.5-12.2) fL Immature Gran # 0.14 H (0.00-0.04) X 10*3/uL Neutrophils # 17.02 H (1.80-7.70) X 10*3/uL Lymphocytes # 0.87 L (0.90-5.00) X 10*3/uL Eosinophils # 0.02 L (0.04-0.35) X 10*3/uL Sodium 136 L (137-145) mmol/L Carbon Dioxide 18.5 L 18 L (21.6-31.8) mmol/L Anion Gap 14.50 H (4.00-12.00) mmol/L BUN 29.4 H 32 H (9.0-27.0) mg/dL Creatinine 0.4 L (0.6-1.5) mg/dL BUN/Creatinine Ratio 73.50 H (12.00-20.00) Ratio Calcium 8.4 L (8.7-10.3) mg/dL Microbiology - Last 24 Hours (Table) 05/24/21 18:00 Blood Culture - Preliminary Blood No Growth after 120 hours
--- NOTE | 2021-05-30 15:45 | PN ---
PROGRESS NOTE DATE OF SERVICE: 05/30/2021 This 75-year-old woman was admitted with acute UTI also had a complex pelvic mass with possible fistula. The patient's family previously refused any further transfer; however, patient underwent diverting colostomy by Dr. Fang on 05/27/2021. Currently the patient is stuporous. Patient is complaining of some pain also. Patient is being closely monitored. Multiple consultants are following the patient patient closely. Cultures are negative so far. PHYSICAL EXAMINATION: Patient is stuporous. Pulse is 90, blood pressure 98/67, respiration 17, temperature 97.7, pulse ox 97% on room air. HEENT: Conjunctivae pale. NECK: No jugular venous distention. CARDIOVASCULAR: S1, S2 muffled. A few scattered rhonchi. ABDOMEN: Soft. Status post surgery. Colostomy present. Nervous system could not be examined completely. LABS: WBC 18.7, hemoglobin 9.7. Sodium 136. ASSESSMENT: 1. Acute urinary tract infection with possible sepsis, present on admission. 2. Abdominal bladder with complex pelvic lesion with multiple complications with possible colovesical fistula and multiple fistulas, possibly with acute diverticulitis and pelvic abscess, status post diverting colostomy. 3. Possible acute diverticulitis. 4. Hypovolemic hyponatremia. 5. Change in mental status, metabolic encephalopathy, multifactorial. 6. Microcytic anemia, possibly iron deficiency anemia, microcytic. 7. Weakness and frequent falls. 8. Gait dysfunction. 9. Legal blindness. 10.Hypothyroidism. 11.History of hypoglycemia. 12.Gastrointestinal prophylaxis. 13.Deep vein thrombosis prophylaxis. 14.Increased white count. 15.Anemia of chronic disease. 16.Mild protein-calorie malnutrition. BMI of 19. 17.NO CODE, NO CPR, NO VENT. RECOMMENDATIONS AND DISCUSSION: I recommend to continue current medications, continue with symptomatic treatment. Continue with the antibiotics. Repeat labs. Currently the patient is NO CODE. Apparently the patient expressed wishes for hospice. I would wait for family's opinion and we will continue to monitor. Otherwise, continue the rest of the medications. Prognosis extremely guarded. Further recommendations to follow. MMODL / IJN: [id number] /
--- NOTE | 2021-05-30 17:14 | PN ---
PROGRESS NOTE DATE OF SERVICE: 05/30/2021. REASON FOR FOLLOW UP: Diverticulitis colovesical fistula. INTERVAL HISTORY: The patient is afebrile. The patient is currently sleepy, lethargic, unable to provide any history. PHYSICAL EXAMINATION: Blood pressure pulse 90. Temperature 98.4. She is on room air. General description is an elderly female lying in bed in no distress. Respiratory system: Unlabored breathing, clear to auscultation anteriorly. Heart S1, S2. Regular rate and rhythm. Abdomen: Soft, no tenderness. No guarding. No rigidity. LABS: No new labs have been obtained today. Blood culture remains to be negative. DIAGNOSTIC IMPRESSION AND PLAN: Patient with intraabdominal abscess from and colovesical fistula status post diverting colostomy hospice antibiotic discontinued. Infectious disease will sign off. MMODL / IJN: [id number] /
--- NOTE | 2021-06-01 19:10 | DS ---
DISCHARGE SUMMARY PRIMARY CAUSE OF : 1. Acute diverticulitis, colovesical fistula, pelvic abscess, and sepsis. OTHER DIAGNOSES: 1. Acute urinary tract infection with possible sepsis present on admission. 2. Acute bladder and complex pelvic lesion with multiple colovesical fistula and acute diverticulitis pelvic abscess and sepsis. 3. Diverting colostomy. 4. Change in mental status, acute metabolic encephalopathy. 5. Acute diverticulitis, present on admission. 6. Hypovolemic hyponatremia. 7. Macrocytic anemia possibly iron deficiency anemia, microcytic of undetermined etiology. 8. Weakness and frequent falls. 9. Gait dysfunction. 10.Legal blindness. 11.Hypothyroidism. 12.History of hypoglycemia. 13.GI prophylaxis. 14.History of deep vein thrombosis prophylaxis. 15.Increased WBC. 16.Anemia of chronic disease. 17.Mild protein-calorie malnutrition with body mass index of 19. 18.NO CODE, NO CPR. NO VENT. HISTORY OF PRESENT ILLNESS: This 75-year-old woman with a past medical history of multiple medical problems, the patient is followed by Dr. Quiroz in the outpatient setting. The patient was admitted with features of acute UTI. Patient also had multiple colovesical fistula and features of acute diverticulitis and possible pelvic mass. The patient was offered the possibility of transfer to elsewhere and multiple surgeries and after a detailed discussion, apparently the family and the patient declined and because of that, the patient was treated with conservative management here in [facility]. The patient was seen by multiple consultants including Infectious Disease, surgery and diverting transverse colostomy was tried but however the patient's condition did not improve. The patient got worse and the patient succumbed to above mentioned medical illnesses. The patient was given antibiotics. Prognosis is extremely guarded and eventually the family would like comfort measures and hospice was consulted and the patient succumbed to her above mentioned illness. Once again, the prognosis remained extremely guarded throughout the hospitalization. Please refer to the multiple consultations with surgery, Infectious Disease and Urology for further information as well as staff notes. MMODL / IJN: [id number] /
== END 2021-05-30 14:59 | disposition hospice, inpatient (51) | DRG 853 ==
LOC: EC 16:29 → 4SSUR 20:09 → OBSVTOIN 05-23 09:20
PROVIDERS: ADMIT Internal Medicine; ATTEND Internal Medicine
PROC: 05HB33Z Insertion of Infusion Device into Right Basilic Vein, Percutaneous Approach (ICD-10-PCS; 2021-05-21)
PROC: 0D1L0Z4 Bypass Transverse Colon to Cutaneous, Open Approach (ICD-10-PCS; principal; 2021-05-27 09:45)
DX: A41.9 Sepsis, unspecified organism (principal); G92 Toxic encephalopathy; K65.1 Peritoneal abscess; K57.20 Diverticulitis of large intestine with perforation and abscess without bleeding; E44.1 Mild protein-calorie malnutrition; Z68.1 Body mass index [BMI] 19.9 or less, adult; E87.1 Hypo-osmolality and hyponatremia; N32.1 Vesicointestinal fistula; N32.2 Vesical fistula, not elsewhere classified; N39.0 Urinary tract infection, site not specified; R45.851 Suicidal ideations; D50.9 Iron deficiency anemia, unspecified; D53.9 Nutritional anemia, unspecified; D63.8 Anemia in other chronic diseases classified elsewhere; E03.9 Hypothyroidism, unspecified; E86.1 Hypovolemia; E87.6 Hypokalemia; H54.8 Legal blindness, as defined in USA; N32.0 Bladder-neck obstruction; N73.9 Female pelvic inflammatory disease, unspecified; R29.6 Repeated falls; Z51.5 Encounter for palliative care; Z66 Do not resuscitate; Z20.822 Contact with and (suspected) exposure to COVID-19; Z79.890 Hormone replacement therapy; Z87.440 Personal history of urinary (tract) infections; Z90.711 Acquired absence of uterus with remaining cervical stump; R26.9 Unspecified abnormalities of gait and mobility
CPT/HCPCS: 36410; 36415; 71045; 72192; 74176; 76937; 80048; 80053; 81001; 83540; 83550; 83735; 85025; 86850; 86900; 86901; 87040; 87086; 87635; 96360; 96361; 99284

== ENCOUNTER 2021-05-30 13:43 | Inpatient (IN) | payer BC, MEDICAID, MEDICARE ==
[2021-05-30] MEDS ORDERED: GLYCOPYRROLATE 0.2 MG/ML 2 ML VIAL IVP PRN (14:38)
[2021-05-30] MEDS ORDERED: HALOPERIDOL LACTATE 5 MG/ML 1 ML VIAL IM PRN (14:38)
[2021-05-30] MEDS ORDERED: ATROPINE OPHTH SOLN 1% 5ML BTL SUBLINGUAL PRN (14:38)
[2021-05-30] MEDS ORDERED: LORazepam 2 MG/ML INJ IV PRN (14:38)
[2021-05-30] MEDS ORDERED: MORPHINE SULFATE 2 MG/ML SYRINGE IV PRN (14:38)
[2021-05-30] MEDS ORDERED: ACETAMINOPHEN SUPPOSITORY 650 MG SUPP RECTAL PRN (14:38)
[2021-05-30] MEDS ORDERED: ONDANSETRON 4 MG/2 ML VIAL IVP PRN (14:38)
[2021-05-30] MEDS ORDERED: HYOSCYAMINE ORAL DROPS 1.875 MG/15 ML BOTTLE PO PRN (14:43)
[2021-05-30] MEDS ORDERED: MORPHINE SULFATE (100 MG/2 ML) 100 MG in SODIUM CHLORIDE 0.9% 100 ML IV SCH (14:45)
[2021-05-30] MEDS ORDERED: SCOPOLAMINE 1.5MG/72HR PATCH TRANSDERM SCH (15:00)
--- NOTE | 2021-05-31 18:33 | PN ---
PROGRESS NOTE DATE OF SERVICE: 05/31/2021 This 75-year-old woman who was admitted with UTI and multiple medical problems is currently on hospice care. Morphine drip was initiated, which is being increased at this time. On exam, the patient is sedated. Pulse is 80, respiration 8 and saturation 92%. HEENT: Conjunctivae normal. NECK: No jugular venous distention. CARDIOVASCULAR: S1, S2 muffled. RESPIRATION: Breath sounds diminished at the bases. ABDOMEN: Soft. NERVOUS SYSTEM: No focal deficit. Labs are not available. ASSESSMENT: 1. Acute urinary tract infection with possible sepsis, present on admission. 2. Complex pelvic mass with abnormal bladder with multiple communications with possible colovesical fistula as well as multiple fistulas. 3. Possible acute diverticulitis with pelvic abscess, status post diverting colostomy. 4. Acute diverticulitis. 5. Hypovolemic hyponatremia. 6. Change in mental status, metabolic encephalopathy, multifactorial. 7. Microcytic anemia, possibly iron deficiency anemia and microcytic. 8. Weakness and frequent falls. 9. Gait dysfunction. 10.Legal blindness. 11.Hypothyroidism. 12.History of hypoglycemia. 13.GI prophylaxis. 14.DVT prophylaxis. 15.Increased white count. 16.Anemia of chronic disease. 17.Mild protein-calorie malnutrition with body mass index of 19. 18.NO CODE, NO CPR, NO VENT. 19.On hospice. RECOMMENDATIONS AND DISCUSSION: I recommend to continue current medications patient is on. , continue with symptomatic treatment. Continue with the hospice care. Continue the morphine. Discussed with the family at length, who understands and agrees. Further recommendations to follow. Prognosis guarded. MMODL / IJN: [id number] /
[2021-06-01 08:31] VITALS: RESP 10
== END 2021-06-01 11:14 | disposition expired | DRG 951 ==
LOC: 4SSUR 15:12
PROVIDERS: ADMIT Internal Medicine; ATTEND Internal Medicine
DX: Z51.5 Encounter for palliative care (principal); G93.41 Metabolic encephalopathy; A41.9 Sepsis, unspecified organism; E44.1 Mild protein-calorie malnutrition; E87.1 Hypo-osmolality and hyponatremia; N39.0 Urinary tract infection, site not specified; Z68.1 Body mass index [BMI] 19.9 or less, adult; K57.80 Diverticulitis of intestine, part unspecified, with perforation and abscess without bleeding; N32.1 Vesicointestinal fistula; Z66 Do not resuscitate; D50.9 Iron deficiency anemia, unspecified; D63.8 Anemia in other chronic diseases classified elsewhere; E03.9 Hypothyroidism, unspecified; E86.1 Hypovolemia; H54.8 Legal blindness, as defined in USA; R29.6 Repeated falls; Z93.3 Colostomy status; Z88.5 Allergy status to narcotic agent